=== PATIENT | male | born 1955 | race Caucasian/White ===

== ENCOUNTER 2018-09-30 06:39 | Day surgery (SDC) | payer OTHER ==
[2018-09-30] MEDS ORDERED: Propofol 200 MG/20 ML SDV IV ONE (06:40)
[2018-09-30] MEDS ORDERED: Lactated Ringers 1,000 ML IV SCH (06:45)
[2018-09-30] MEDS ORDERED: Sodium Chloride 0.9% 10 ML Syringe FLUSH PRN (06:45)
--- NOTE | 2018-09-30 08:22 | PCM.OPNOTE ---
- General Post-Op/Procedure Note Date of Surgery/Procedure: 09/30/18 Operative Procedure(s): c scope Findings: nl exam Pre Op Diagnosis: screening Post-Op Diagnosis: nl exam Anesthesia Technique: MAC Primary Surgeon: Bib Sommer Anesthesia Provider: Stanton Hernandez Complications: None Condition: Good Free Text/Narrative:: see dictation
--- NOTE | 2018-09-30 08:45 | OR ---
DATE OF OPERATION: 09/30/2018 SURGEON: Bib Sommer MD PROCEDURE PERFORMED: Colonoscopy. PREOPERATIVE DIAGNOSIS: Need for screening C-scope. POSTOPERATIVE DIAGNOSIS: Normal colon. INDICATIONS FOR PROCEDURE: This is a 63-year-old white male presenting for colonoscopy. He was offered and accepted same. DESCRIPTION OF OPERATION: After an excellent IV sedation was administered, digital rectal exam was performed. No marked abnormality was noted. Flexible colonoscope was inserted and advanced to the cecum without difficulty. Prep was excellent. Following findings were noted. Ascending colon, unremarkable. Transverse colon, unremarkable. Descending colon, unremarkable. Sigmoid and rectum, unremarkable. Colon was deflated. Scope was removed. The patient tolerated the procedure well. RECOMMENDATIONS: Repeat colonoscopy in 10 years. /[id number] /MODL
== END 2018-09-30 09:24 | disposition home or self-care (01) ==
LOC: FB.SDS 06:39
PROVIDERS: ATTEND Surgery
DX: Z12.11 Encounter for screening for malignant neoplasm of colon (principal); J45.909 Unspecified asthma, uncomplicated; Z79.899 Other long term (current) drug therapy; Z91.011 Allergy to milk products
CPT/HCPCS: 45378; J2704; J7120

== ENCOUNTER 2019-01-16 05:06 | Emergency (ER) | payer OTHER ==
[2019-01-16] MEDS ORDERED: traMADol 50 MG Tab PO ONE (05:07)
[2019-01-16] MEDS ORDERED: Cyclobenzaprine 10 MG Tab PO ONE (05:07)
[2019-01-16] MEDS ORDERED: Morphine 10 MG/ML Syringe IM ONE (05:18)
[2019-01-16] MEDS ORDERED: hydrOXYzine HCl 50 MG/ML SDV IM ONE (05:18)
--- NOTE | 2019-01-16 05:23 | EDM.PDOC ---
ED HPI GENERAL MEDICAL PROBLEM - General Stated Complaint: BACK PAIN Time Seen by Provider: 01/16/19 05:19 Source of Information: Reports: Patient History Limitations: Reports: No Limitations - History of Present Illness INITIAL COMMENTS - FREE TEXT/NARRATIVE: Back pain x 5 days,sudden onset.Lifted heavy object a week ago. Progressive pain ,left side,radiates to thigh.No fever,or sphincter incontinence.OTC meds not working. Left Lower Back Pain Score (Numeric/FACES): 9 - Related Data Allergies Allergy/AdvReac Type Severity Reaction Status Date / Time gluten Allergy Diarrhea Verified 09/29/18 11:37 lactose Allergy Nausea Verified 09/29/18 11:37 Home Meds: Home Meds Albuterol Sulfate [Albuterol Sulfate Hfa] 2 puff IH Q4HR PRN 09/29/18 [History] Budesonide/Formoterol [Symbicort 160-4.5 MCG] 2 puff INH BID 09/29/18 [History] Fexofenadine/Pseudoephedrine [Lorin-D 12 Hour] 1 each PO DAILY PRN 09/29/18 [ History] Fluticasone Propionate [Flonase] 2 spray NS DAILY 09/29/18 [History] Ibuprofen 600 mg PO QID 09/29/18 [History] Montelukast [Singulair] 10 mg PO BEDTIME 09/29/18 [History] Multivitamin [Multivitamins] 1 ea PO DAILY 09/30/18 [History] Past Medical History HEENT History: Reports: Allergic Rhinitis, Impaired Vision Cardiovascular History: Reports: None Other Cardiovascular History: STATES PALPITATIONS CHECKED PER HOLTER MONITOR, NEGATIVE YEARS AGO. Respiratory History: Reports: Asthma Gastrointestinal History: Reports: Other (See Below) Other Gastrointestinal History: GLUTEN ET LACTOSE INTOLERANCE. Genitourinary History: Other Genitourinary History: URNINARY FREQUENCY. 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 Neurological History: Reports: Other (See Below) Other Neuro History: LUMBAR DISC HERNIATION Psychiatric History: Reports: None Endocrine/Metabolic History: Reports: None Hematologic History: Reports: None Dermatologic History: Reports: Eczema - Infectious Disease History Infectious Disease History: Reports: Chicken Pox, Measles, Mumps - Past Surgical History Head Surgeries/Procedures: Reports: None HEENT Surgical History: Reports: Tonsillectomy GI Surgical History: Reports: Colonoscopy, EGD Musculoskeletal Surgical History: Reports: Arthroscopic Procedure, Other (See Below) Other Musculoskeletal Surgeries/Procedures:: BUNIONECTOMY-LEFT. BONE SPUR EXCISION BILAT ANKLE. SCRAPING OF LEFT HIP. Social & Family History - Family History GI: Reports: None - Caffeine Use Caffeine Use: Reports: Coffee ED ROS GENERAL - Review of Systems Review Of Systems: ROS reveals no pertinent complaints other than HPI. ED EXAM,LOWER BACK PAIN/INJURY - Physical Exam Exam: See Below Exam Limited By: No Limitations General Appearance: Alert, WD/WN, No Apparent Distress Head: Atraumatic Neck: Normal Inspection Back Exam: Normal Inspection, Decreased Range of Motion, Paraspinal Tenderness. No: Muscle Spasm Extremities: Normal Inspection, Normal Range of Motion, Non-Tender, No Pedal Edema Neurological: Alert, Normal Mood/Affect, Normal Dorsiflexion, Oriented x 3 Course - Vital Signs Last Recorded V/S: Last Vital Signs Temp 97.5 F 01/16/19 05:10 Pulse 77 01/16/19 05:10 Resp 18 01/16/19 05:10 BP 117/68 01/16/19 05:10 Pulse Ox 100 01/16/19 05:10 - Orders/Labs/Meds Orders: Active Orders 24 hr Category Date Time Status Morphine Med 01/16/19 05:18 Once 10 mg IM ONETIME ONE hydrOXYzine HCl [Vistaril] Med 01/16/19 05:18 Once 50 mg IM ONETIME ONE Departure - Departure Time of Disposition: 05:21 Disposition: Home, Self-Care 01 Condition: Good Clinical Impression: Acute lumbar back pain - Discharge Information Referrals: Bk Terry MD [Primary Care Provider] - - Problem List & Annotations (1) Acute lumbar back pain SNOMED Code(s): 262427851 Code(s): M54.5 - LOW BACK PAIN Status: Acute Qualifiers: Back pain laterality: left Sciatica presence: without sciatica Qualified Code(s): M54.5 - Low back pain - Problem List Review Problem List Initiated/Reviewed/Updated: Yes - My Orders Last 24 Hours: My Active Orders 01/16/19 05:18 Morphine 10 mg IM ONETIME ONE hydrOXYzine HCl [Vistaril] 50 mg IM ONETIME ONE - Assessment/Plan Last 24 Hours: My Active Orders 06/30/19 05:18 Morphine 10 mg IM ONETIME ONE hydrOXYzine HCl [Vistaril] 50 mg IM ONETIME ONE Plan: MS 10 mg IM,and Vistaril 50 mg IM. I dispnsed Chad and dee. PT may be helpful
[2019-01-16] MEDS ORDERED: Morphine 4 MG/ML Syringe ONE (05:29)
[2019-01-16] MEDS ORDERED: Morphine 4 MG/ML Syringe IM ONE (05:37)
== END 2019-01-16 05:45 | disposition home or self-care (01) ==
LOC: FB.ED 05:06
DX: M54.5 Low back pain (principal); J45.909 Unspecified asthma, uncomplicated; Z91.018 Allergy to other foods; Z91.011 Allergy to milk products; Z79.899 Other long term (current) drug therapy
CPT/HCPCS: 96372; 99282; A9270; J2270; J3410

== ENCOUNTER 2021-05-06 21:45 | Inpatient (IN) | payer OTHER ==
[2021-05-06] MEDS ORDERED: Sodium Chloride 0.9% 1,000 ML IV ONE ×2 (21:56→22:56)
--- NOTE | 2021-05-06 22:00 | EDM.PDOC ---
ED HPI GENERAL MEDICAL PROBLEM - General Chief Complaint: Fever Stated Complaint: COVID Time Seen by Provider: 05/06/21 21:45 Source of Information: Reports: Patient, Family History Limitations: Reports: No Limitations - History of Present Illness INITIAL COMMENTS - FREE TEXT/NARRATIVE: c/o sob pt and both tested positive for COVID pt had BAM infusion today in [place], poor PO intake, had PO 90% tonight with inc'd sob and told to come to ED PO at 94% on RA here, does have slight wheeze has asthma for years, take Symbicort daily, not had a flare of asthma in recent years, begun on prednisone 2 tabs daily when in [place] today for his BAM infusion which was arranged by Dr Cook who is now his 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[facility] [employer] never smoked, no h/o pneumonia has taken ibuprofen 200 mg 2 tabs on occasion although not on a regular basis and pt have not had COVID vax - Related Data Allergies Allergy/AdvReac Type Severity Reaction Status Date / Time gluten Allergy Diarrhea Verified 05/06/21 21:52 lactose Allergy Nausea Verified 05/06/21 21:52 Home Meds: Home Meds Albuterol Sulfate [Albuterol Sulfate Hfa] 2 puff IH Q4HR PRN 09/29/18 [History] Budesonide/Formoterol [Symbicort 160-4.5 MCG] 2 puff INH BID 09/29/18 [History] Fluticasone Propionate [Flonase] 2 spray NS DAILY 09/29/18 [History] Ibuprofen 600 mg PO QID 09/29/18 [History] Montelukast [Singulair] 10 mg PO BEDTIME 09/29/18 [History] Multivitamin [Multivitamins] 1 ea PO DAILY 09/30/18 [History] predniSONE [Prednisone] 40 mg PO ASDIRECTED 05/06/21 [History] Past Medical History HEENT History: Reports: Allergic Rhinitis, Impaired Vision Cardiovascular History: Reports: None Other Cardiovascular History: STATES PALPITATIONS CHECKED PER HOLTER MONITOR, NEGATIVE YEARS AGO. Respiratory History: Reports: Asthma Gastrointestinal History: Reports: Other (See Below) Other Gastrointestinal History: GLUTEN ET LACTOSE INTOLERANCE. Genitourinary History: Other Genitourinary History: URNINARY FREQUENCY. 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 Neurological History: Reports: Other (See Below) Other Neuro History: LUMBAR DISC HERNIATION Psychiatric History: Reports: None Endocrine/Metabolic History: Reports: None Hematologic History: Reports: None Dermatologic History: Reports: Eczema - Infectious Disease History Infectious Disease History: Reports: Chicken Pox, Measles, Mumps - Past Surgical History Head Surgeries/Procedures: Reports: None HEENT Surgical History: Reports: Tonsillectomy GI Surgical History: Reports: Colonoscopy, EGD Musculoskeletal Surgical History: Reports: Arthroscopic Procedure, Other (See Below) Other Musculoskeletal Surgeries/Procedures:: BUNIONECTOMY-LEFT. BONE SPUR EXCISION BILAT ANKLE. SCRAPING OF LEFT HIP. Social & Family History - Family History GI: Reports: None - Caffeine Use Caffeine Use: Reports: Coffee ED ROS GENERAL - Review of Systems Review Of Systems: See Below Constitutional: Reports: Fever HEENT: Reports: No Symptoms Respiratory: Reports: Shortness of Breath, Cough Cardiovascular: Reports: No Symptoms Endocrine: Reports: No Symptoms GI/Abdominal: Reports: No Symptoms : Reports: No Symptoms Musculoskeletal: Reports: No Symptoms Skin: Reports: No Symptoms Neurological: Reports: No Symptoms Psychiatric: Reports: No Symptoms Hematologic/Lymphatic: Reports: No Symptoms Immunologic: Reports: No Symptoms ED EXAM, GENERAL - Physical Exam Exam: See Below Exam Limited By: No Limitations General Appearance: Alert, WD/WN, Other (weak) Ears: Hearing Grossly Normal Nose: Normal Inspection Throat/Mouth: Normal Inspection, Normal Lips, Normal Voice, No Airway Compromise Head: Atraumatic, Normocephalic Neck: Normal Inspection, Supple, Non-Tender. No: Lymphadenopathy (R), Lymphadenopathy (L) Cardiovascular: Regular Rate, Rhythm, No Edema, No Murmur GI/Abdominal: Soft, Non-Tender, No Distention Back Exam: Normal Inspection, Full Range of Motion Extremities: Normal Range of Motion, No Pedal Edema Neurological: Alert, Oriented, CN II-XII Intact, Normal Cognition, No Motor/Sensory Deficits Psychiatric: Normal Affect, Normal Mood Skin Exam: Warm, Dry, Intact, Normal Color, No Rash Lymphatic: No Adenopathy Course - Vital Signs Last Recorded V/S: Last Vital Signs Temp 37.4 C 05/06/21 23:35 Pulse 97 05/06/21 21:45 Resp 24 H 05/06/21 21:45 BP 130/67 05/06/21 21:45 Pulse Ox 91 L 05/06/21 21:45 - Orders/Labs/Meds Orders: Active Orders 24 hr Category Date Time Status RT Aerosol Therapy [RC] ASDIRECTED Care 05/06/21 23:09 Ordered Ang Chest [CT] Stat Exams 05/06/21 22:57 Ordered Labs: Laboratory Tests 05/06/21 05/06/21 05/06/21 Range/Units 22:20 22:20 22:20 WBC 5.9 (3.2-10.1) x10-3/uL RBC 3.86 L (3.90-5.90) x10(6)uL Hgb 12.5 L (12.9-17.7) g/dL Hct 34.6 L (38.3-50.1) % MCV 89.6 (80.8-98.7) fL MCH 32.4 (27.0-33.3) pg MCHC 36.2 H (28.7-35.3) g/dL RDW 12.4 (12.4-15.0) % Plt Count 167 (117-477) x10(3)uL MPV 6.9 (6.7-11.0) fL Add Manual Diff Yes Neutrophils % (Manual) 96 H (46-82) % Band Neutrophils % 1 (0-6) % Lymphocytes % (Manual) 2 L (13-37) % Monocytes % (Manual) 1 L (4-12) % Sodium 119 L* (135-145) mmol/L Potassium 3.9 (3.5-5.3) mmol/L Chloride 87 L* (100-110) mmol/L Carbon Dioxide 22 (21-32) mmol/L BUN 14 (7-18) mg/dL Creatinine 0.9 (0.70-1.30) mg/dL Est Cr Clr Drug Dosing 87.78 mL/min Estimated GFR (MDRD) > 60 (>60) BUN/Creatinine Ratio 15.6 (9-20) Glucose 148 H (80-116) mg/dL Calcium 7.7 L (8.6-10.2) mg/dL Total Bilirubin 0.4 (0.1-1.3) mg/dL AST 58 H (5-25) IU/L ALT 33 (12-36) U/L Alkaline Phosphatase 60 (56-112) IU/L C-Reactive Protein 21.0 H* (0.5-0.9) mg/dL Total Protein 6.6 (6.0-8.0) g/dL Albumin 2.5 L (3.2-4.6) g/dL Globulin 4.1 g/dL Albumin/Globulin Ratio 0.6 Meds: Medications Discontinued Medications Generic Name Dose Route Start Last Admin Trade Name Socrates PRN Reason Stop Dose Admin Acetaminophen 1,000 mg 05/06/21 22:03 05/06/21 23:05 Acetaminophen 500 Mg Tab PO 05/06/21 22:04 1,000 mg ONETIME ONE Administration Albuterol/Ipratropium 3 ml 05/06/21 23:09 05/07/21 00:30 Albuterol/Ipratropium 3.0-0.5 Mg/3 Ml Neb Soln NEB 05/06/21 23:10 3 ml ONETIME ONE Administration Sodium Chloride 1,000 mls @ 999 mls/hr 05/06/21 21:56 05/06/21 23:05 Normal Saline IV 05/06/21 22:56 999 mls/hr .BOLUS ONE Administration Sodium Chloride 1,000 mls @ 999 mls/hr 05/06/21 22:56 05/07/21 00:40 Normal Saline IV 05/06/21 23:56 999 mls/hr .BOLUS ONE Administration Iopamidol 65 ml 05/06/21 23:47 05/07/21 00:12 Iopamidol 755 Mg/Ml 75 Ml Bottle IV 05/06/21 23:48 65 ml ONETIME ONE Administration Ketorolac Tromethamine 30 mg 05/06/21 22:02 05/06/21 23:05 Ketorolac 30 Mg/Ml Sdv IVPUSH 05/06/21 22:03 30 mg ONETIME ONE Administration - Re-Assessments/Exams Free Text/Narrative Re-Assessment/Exam: 05/07/21 01:34 chest CTA with no PE per radiology, does have moderately severe COVID pneumonia that is mostly posterior and inferior, may benefit from prone positioning when awake pt improved after Duoneb, did have minimal wheezing, however RR inc'd to 30 and pt had paradoximal abd respirations with PO dropping to 88% when he was on his 2nd liter of NS, his labored respirations are concerning d/t the work of breathing he does not have nebs at home and even nebs at home along with home O2 is likely insufficient there are no beds in [place] currently, including no COVID beds based on earlier attempts to transfer pts who are still wait lifted, there currently are 2 pts on extended ED stays here who could not be transferred to [place] or elsewhere there is an open COVID bed here, will admit pt here on O2, scheduled anti- inflammatories, scheduled nebs, monitor no lobar pneumonia identified on chest CTA, typical ground glass appearance pt currently asleep, said he was exhausted, (Ariadne) headed home and said she could be reached at her cell phone at [phone] Departure - Departure Time of Disposition: 01:39 Disposition: Admitted As Inpatient 66 Condition: Fair Clinical Impression: Pneumonia due to COVID-19 virus, Hypoxia, Hyponatremia, Tachypnea, Dyspnea, Asthma exacerbation, Hypoalbuminemia - Discharge Information *PRESCRIPTION DRUG MONITORING PROGRAM REVIEWED*: Not Applicable *COPY OF PRESCRIPTION DRUG MONITORING REPORT IN PATIENT NORM: Not Applicable Forms: ED Department Discharge Sepsis Event Note (ED) - Evaluation Sepsis Screening Result: No Definite Risk - Focused Exam Vital Signs: Vital Signs Temp Temp Pulse Resp BP Pulse Ox 05/06/21 23:35 37.4 C 05/06/21 23:05 38.9 C H 05/06/21 21:45 38.9 C H 97 24 H 130/67 91 L - My Orders Last 24 Hours: My Active Orders 05/06/21 22:57 Ang Chest [CT] Stat 05/06/21 23:09 RT Aerosol Therapy [RC] ASDIRECTED - Assessment/Plan Last 24 Hours: My Active Orders 05/06/21 22:57 Ang Chest [CT] Stat 05/06/21 23:09 RT Aerosol Therapy [RC] ASDIRECTED
[2021-05-06] MEDS ORDERED: Ketorolac 30 MG/ML SDV IVPUSH ONE (22:02)
[2021-05-06] MEDS ORDERED: Acetaminophen 500 MG Tab PO ONE (22:03)
[2021-05-06] MEDS ORDERED: Albuterol/Ipratropium 3.0-0.5 MG/3 ML Neb Soln NEB ONE (23:09)
[2021-05-06] MEDS ORDERED: Iopamidol 755 Mg/ML 75 ML Bottle IV ONE (23:47)
[2021-05-07] MEDS ORDERED: LORazepam 2 MG/ML SDV IV PRN (01:43)
[2021-05-07] MEDS ORDERED: Magnesium Hydroxide 400 MG/5 ML Susp 30 ML Cup PO PRN (01:43)
[2021-05-07] MEDS ORDERED: Ketorolac 30 MG/ML SDV IVPUSH SCH ×2 (01:45→05:00)
[2021-05-07] MEDS ORDERED: Enoxaparin 40 MG/0.4 ML Syringe SUBCUT SCH (01:45)
[2021-05-07] MEDS ORDERED: Albuterol 0.083% 2.5 MG/3 ML Neb Soln NEB SCH ×2 (01:45→05:00)
[2021-05-07] MEDS ORDERED: Albuterol/Ipratropium 3.0-0.5 MG/3 ML Neb Soln NEB ONE (01:55)
[2021-05-07] MEDS ORDERED: Sodium Chloride 0.45% with KCl 1,000 ML IV SCH (02:00)
[2021-05-07] MEDS ORDERED: methylPREDNISolone Sodium Succinate 125 MG/2 ML SDV IVPUSH SCH (02:00)
[2021-05-07] MEDS ORDERED: methylPREDNISolone Sodium Succinate 125 MG/2 ML SDV ONE (02:00)
[2021-05-07] MEDS ORDERED: methylPREDNISolone Sod Succ 125 MG in Sodium Chloride 0.9% 100 ML IV SCH (02:00)
[2021-05-07 03:05] LABS: BASE EXCESS VENOUS,POC -4 mmol/L (-2 - 3+); PCO2 VENOUS,POC 36 mmHg (41-51); PH VENOUS,POC 7.36 pH Units (7.32-7.43)
[2021-05-07] MEDS: Albuterol/Ipratropium 3.0-0.5 MG/3 ML Neb Soln INH SCH ×2 (04:58→08:26)
[2021-05-07] MEDS ORDERED: Acetaminophen 500 MG Tab PO SCH (08:00)
[2021-05-07] MEDS: Budesonide 0.5 MG/2 ML Neb Susp INH SCH ×2 (08:27→20:12)
[2021-05-07] MEDS: Dexamethasone 4 MG/ML SDV IVPUSH SCH (08:28)
[2021-05-07] MEDS: Acetaminophen 500 MG Tab PO SCH ×3 (08:34→20:11)
[2021-05-07] MEDS: Multivitamin Tab PO SCH (08:35)
[2021-05-07] MEDS ORDERED: Fluticasone Propionate Nasal Spray 16 GM Bottle NASBOTH SCH (09:00)
--- NOTE | 2021-05-07 12:33 | PCM.HP.2 ---
H&P History of Present Illness - General Date of Service: 05/07/21 Admit Problem/Dx: Admission Diagnosis/Problem Admission Diagnosis/Problem Pneumonia Source of Information: Patient, Provider History Limitations: Reports: No Limitations - History of Present Illness Initial Comments - Free Text/Narative: Liang presented to ER last night for increasing shortness of breath, he started running fevers on , went into clinic on Thursday, and tested positive for Covid, set up for monoclonal ab infusion yesterday in [place], also Dr Cook started him on Prednisone 40 mg daily. He has asthma, takes Symbicort and Singulair, Albuterol and MTV. His saturations were in low 90s yesterday during his infusion stated he felt fine during the infusion but then after he got home he felt worse and came to ER. In ER his WBC was 5.2, Hgb 12.5, Sodium was 119, CRP 21.0. He was saturating 94% on room air, admitted to Covid unit for monitoring and IVF to correct hyponatremia. Overnight he desaturated down into 80%, he was started on oxygen with nasal cannula was up to 6L, attempted high flow nasal cannula but could not maintain oxygen above 90%, changed to non- breather mask and now requiring 15L. His temp this morning was 101.9F. He declined Remdesivir treatment due to concern of side effects. - Related Data Allergies/Adverse Reactions: Allergies Allergy/AdvReac Type Severity Reaction Status Date / Time gluten Allergy Diarrhea Verified 05/06/21 21:52 lactose Allergy Nausea Verified 05/06/21 21:52 Home Medications: Home Meds Albuterol Sulfate [Albuterol Sulfate Hfa] 2 puff IH Q4HR PRN 09/29/18 [History] Budesonide/Formoterol [Symbicort 160-4.5 MCG] 2 puff INH BID 09/29/18 [History] Fluticasone Propionate [Flonase] 2 spray NS DAILY 09/29/18 [History] Ibuprofen 600 mg PO QID 09/29/18 [History] Montelukast [Singulair] 10 mg PO BEDTIME 09/29/18 [History] Multivitamin [Multivitamins] 1 ea PO DAILY 09/30/18 [History] predniSONE [Prednisone] 40 mg PO ASDIRECTED 05/06/21 [History] Past Medical History HEENT History: Reports: Allergic Rhinitis, Impaired Vision Cardiovascular History: Reports: None Other Cardiovascular History: STATES PALPITATIONS CHECKED PER HOLTER MONITOR, NEGATIVE YEARS AGO. Respiratory History: Reports: Asthma Gastrointestinal History: Reports: Other (See Below) Other Gastrointestinal History: GLUTEN ET LACTOSE INTOLERANCE. Genitourinary History: Other Genitourinary History: URNINARY FREQUENCY. WOOL CARDER History: Reports: None Musculoskeletal History: Reports: Back Pain, Chronic, Fracture Other Musculoskeletal History: hx bilat hand fx Neurological History: Reports: Other (See Below) Other Neuro History: LUMBAR DISC HERNIATION Psychiatric History: Reports: None Endocrine/Metabolic History: Reports: None Hematologic History: Reports: None Dermatologic History: Reports: Eczema - Infectious Disease History Infectious Disease History: Reports: Chicken Pox, Measles, Mumps, Novel Coronavirus, Shingles - Past Surgical History Head Surgeries/Procedures: Reports: None HEENT Surgical History: Reports: Tonsillectomy GI Surgical History: Reports: Colonoscopy, EGD Musculoskeletal Surgical History: Reports: Arthroscopic Procedure, Other (See Below) Other Musculoskeletal Surgeries/Procedures:: BUNIONECTOMY-LEFT. BONE SPUR EXCISION BILAT ANKLE. SCRAPING OF LEFT HIP. Social & Family History - Family History Family Medical History: No Pertinent Family History GI: Reports: None - Tobacco Use Tobacco Use Status *Q: Never Tobacco User - Caffeine Use Caffeine Use: Reports: Coffee - Alcohol Use Days Per Week of Alcohol Use: 7 Number of Drinks Per Day: 4 Total Drinks Per Week: 28 - Recreational Drug Use Recreational Drug Use: No H&P Review of Systems - Review of Systems: Review Of Systems: See Below General: Reports: Fever, Chills, Malaise, Weakness HEENT: Reports: No Symptoms Pulmonary: Reports: Shortness of Breath, Wheezing, Cough, Sputum Cardiovascular: Reports: Dyspnea on Exertion. Denies: Chest Pain, Edema Gastrointestinal: Reports: No Symptoms Genitourinary: Reports: No Symptoms Musculoskeletal: Reports: No Symptoms Skin: Reports: No Symptoms Exam - Exam Exam: See Below - Vital Signs Vital Signs: Last Vital Signs Temp 99.3 F 05/07/21 11:30 Pulse 124 H 05/07/21 11:30 Resp 32 H 05/07/21 11:30 BP 131/63 05/07/21 11:30 Pulse Ox 97 05/07/21 11:30 Weight: 170 lb 5 oz - Exam Quality Assessment: Supplemental Oxygen General: Alert, Oriented, Cooperative, Moderate Distress HEENT: PERRLA, EOMI, Hearing Intact Neck: Trachea Midline Lungs: Decreased Breath Sounds, Crackles (bibasilar, posterior), Rales (RLL/LLL). No: Normal Respiratory Effort (increased), Wheezing Cardiovascular: Tachycardia GI/Abdominal Exam: Normal Bowel Sounds, Soft, Non-Tender, No Distention (Male) Exam: Deferred Rectal (Males) Exam: Deferred Extremities: No Pedal Edema, Normal Capillary Refill Peripheral Pulses: 2+: Radial (L), Radial (R), Posterior Tibial (L), Posterior Tibial (R), Dorsalis Pedis (L), Dorsalis Pedis (R) Skin: Intact, Other (clammy, flushed) Neurological: Cranial Nerves Intact, Normal Speech, Normal Tone - Patient Data Lab Results Last 24 hrs: Laboratory Results - last 24 hr 05/06/21 05/06/21 05/06/21 Range/Units 22:20 22:20 22:20 WBC 5.9 (3.2-10.1) x10-3/uL RBC 3.86 L (3.90-5.90) x10(6)uL Hgb 12.5 L (12.9-17.7) g/dL Hct 34.6 L (38.3-50.1) % MCV 89.6 (80.8-98.7) fL MCH 32.4 (27.0-33.3) pg MCHC 36.2 H (28.7-35.3) g/dL RDW 12.4 (12.4-15.0) % Plt Count 167 (117-477) x10(3)uL MPV 6.9 (6.7-11.0) fL Add Manual Diff Yes Neutrophils % (Manual) 96 H (46-82) % Band Neutrophils % 1 (0-6) % Lymphocytes % (Manual) 2 L (13-37) % Monocytes % (Manual) 1 L (4-12) % POC VBG pH (7.32-7.43) pH Units POC VBG pCO2 (41-51) mmHg POC VBG HCO3 (22-29) mmol/L VBG Base Excess (-2 - 3+) mmol/L O2 Delivery Device Oxygen Flow Rate LPM Sodium 119 L* (135-145) mmol/L Potassium 3.9 (3.5-5.3) mmol/L Chloride 87 L* (100-110) mmol/L Carbon Dioxide 22 (21-32) mmol/L BUN 14 (7-18) mg/dL Creatinine 0.9 (0.70-1.30) mg/dL Est Cr Clr Drug Dosing 87.78 mL/min Estimated GFR (MDRD) > 60 (>60) BUN/Creatinine Ratio 15.6 (9-20) Glucose 148 H (80-116) mg/dL Calcium 7.7 L (8.6-10.2) mg/dL Total Bilirubin 0.4 (0.1-1.3) mg/dL AST 58 H (5-25) IU/L ALT 33 (12-36) U/L Alkaline Phosphatase 60 (56-112) IU/L C-Reactive Protein 21.0 H* (0.5-0.9) mg/dL Total Protein 6.6 (6.0-8.0) g/dL Albumin 2.5 L (3.2-4.6) g/dL Globulin 4.1 g/dL Albumin/Globulin Ratio 0.6 05/07/21 05/07/21 05/07/21 Range/Units 02:50 06:55 06:55 WBC 7.2 (3.2-10.1) x10-3/uL RBC 4.56 (3.90-5.90) x10(6)uL Hgb 14.9 (12.9-17.7) g/dL Hct 41.8 (38.3-50.1) % MCV 91.8 (80.8-98.7) fL MCH 32.6 (27.0-33.3) pg MCHC 35.6 H (28.7-35.3) g/dL RDW 12.2 L (12.4-15.0) % Plt Count 157 (117-477) x10(3)uL MPV 7.3 (6.7-11.0) fL Add Manual Diff Yes Neutrophils % (Manual) 89 H (46-82) % Band Neutrophils % 2 (0-6) % Lymphocytes % (Manual) 7 L (13-37) % Monocytes % (Manual) 2 L (4-12) % POC VBG pH 7.36 (7.32-7.43) pH Units POC VBG pCO2 36 L (41-51) mmHg POC VBG HCO3 21 L (22-29) mmol/L VBG Base Excess -4 L (-2 - 3+) mmol/L O2 Delivery Device Room air Oxygen Flow Rate 0 LPM Sodium 126 L (135-145) mmol/L Potassium 3.8 (3.5-5.3) mmol/L Chloride 92 L D (100-110) mmol/L Carbon Dioxide 18 L (21-32) mmol/L BUN 15 (7-18) mg/dL Creatinine 1.1 (0.70-1.30) mg/dL Est Cr Clr Drug Dosing 74.13 mL/min Estimated GFR (MDRD) > 60 (>60) BUN/Creatinine Ratio 13.6 (9-20) Glucose 163 H (80-116) mg/dL Calcium 7.6 L (8.6-10.2) mg/dL Total Bilirubin (0.1-1.3) mg/dL AST (5-25) IU/L ALT (12-36) U/L Alkaline Phosphatase (56-112) IU/L C-Reactive Protein (0.5-0.9) mg/dL Total Protein (6.0-8.0) g/dL Albumin (3.2-4.6) g/dL Globulin g/dL Albumin/Globulin Ratio 05/07/21 Range/Units 06:55 WBC (3.2-10.1) x10-3/uL RBC (3.90-5.90) x10(6)uL Hgb (12.9-17.7) g/dL Hct (38.3-50.1) % MCV (80.8-98.7) fL MCH (27.0-33.3) pg MCHC (28.7-35.3) g/dL RDW (12.4-15.0) % Plt Count (117-477) x10(3)uL MPV (6.7-11.0) fL Add Manual Diff Neutrophils % (Manual) (46-82) % Band Neutrophils % (0-6) % Lymphocytes % (Manual) (13-37) % Monocytes % (Manual) (4-12) % POC VBG pH (7.32-7.43) pH Units POC VBG pCO2 (41-51) mmHg POC VBG HCO3 (22-29) mmol/L VBG Base Excess (-2 - 3+) mmol/L O2 Delivery Device Oxygen Flow Rate LPM Sodium (135-145) mmol/L Potassium (3.5-5.3) mmol/L Chloride (100-110) mmol/L Carbon Dioxide (21-32) mmol/L BUN (7-18) mg/dL Creatinine (0.70-1.30) mg/dL Est Cr Clr Drug Dosing mL/min Estimated GFR (MDRD) (>60) BUN/Creatinine Ratio (9-20) Glucose (80-116) mg/dL Calcium (8.6-10.2) mg/dL Total Bilirubin (0.1-1.3) mg/dL AST (5-25) IU/L ALT (12-36) U/L Alkaline Phosphatase (56-112) IU/L C-Reactive Protein 18.7 H* (0.5-0.9) mg/dL Total Protein (6.0-8.0) g/dL Albumin (3.2-4.6) g/dL Globulin g/dL Albumin/Globulin Ratio Result Diagrams: 05/07/21 06:55 05/07/21 06:55 Jack Results Last 24 hrs: Microbiology 05/07/21 09:21 Influenza Type A Antigen Screen - Final Nasopharyngeal Swab NEGATIVE INFLUENZA A VIRUS AG REFERENCE RANGE: NEGATIVE Influenza Type B Antigen Screen - Final NEGATIVE INFLUENZA B VIRUS AG REFERENCE RANGE: NEGATIVE Sepsis Event Note - Evaluation Sepsis Screening Result: No Definite Risk - Focused Exam Vital Signs: Vital Signs Temp Temp Pulse Resp BP Pulse Ox Pulse Ox 05/07/21 11:30 99.3 F 124 H 32 H 131/63 97 05/07/21 09:04 99.8 F 05/07/21 08:34 100.8 F H 05/07/21 06:26 77 35 H 136/61 93 L 05/07/21 06:00 96.4 F L 75 32 H 128/63 93 L 05/07/21 05:30 73 35 H 114/64 93 L 05/07/21 05:15 80 05/07/21 05:00 97.1 F 72 35 H 116/66 93 L 05/07/21 04:30 97.2 F 73 35 H 124/62 93 L 05/07/21 04:00 75 35 H 115/58 L 92 L 05/07/21 03:30 75 35 H 117/60 91 L 85 L 05/07/21 03:00 89 L 05/07/21 02:40 97.6 F 24 H 118/60 93 L *Q Meaningful Use (ADM) - VTE Risk Assess *Q Each Risk Factor Represents 1 Point: None, Serious lung disease including pneumonia, Medical Patient Currently on Bedrest Total Score 1 Point Risk Factors: 2 Each Risk Factor Represents 2 Points: None, Age 60 - 74 Years Total Score 2 Point Risk Factors: 2 Each Risk Factor Represents 3 Points: None Total Score 3 Point Risk Factors: 0 Each Risk Factor Represents 5 Points: None Total Score 5 Point Risk Factors: 0 Venous Thromboembolism Risk Factor Score *Q: 4 - Problem List (1) Pneumonia due to COVID-19 virus SNOMED Code(s): 817850208150537578 ICD Code: U07.1 - COVID-19; J12.82 - PNEUMONIA DUE TO CORONAVIRUS DISEASE 2018 Status: Acute Current Visit: Yes (2) Hypoxia SNOMED Code(s): 110820527 ICD Code: R09.02 - HYPOXEMIA Status: Acute Current Visit: Yes (3) Tachypnea SNOMED Code(s): 571041681 ICD Code: R06.82 - TACHYPNEA, NOT ELSEWHERE CLASSIFIED Status: Acute Current Visit: Yes (4) Hyponatremia SNOMED Code(s): 41152907 ICD Code: E87.1 - HYPO-OSMOLALITY AND HYPONATREMIA Status: Acute Current Visit: Yes (5) Asthma SNOMED Code(s): 322615732 ICD Code: J45.909 - UNSPECIFIED ASTHMA, UNCOMPLICATED Status: Chronic Current Visit: Yes Problem List Initiated/Reviewed/Updated: Yes Orders Last 24hrs: Active Orders 24 hr Category Date Time Status Admission Status [Patient Status] [ADT] Routine ADT 05/07/21 01:29 Active Cardiac Monitoring [RC] QSHIFT Care 05/07/21 01:44 Active Oxygen Therapy [RC] PRN Care 05/07/21 01:44 Active Positioning, Patient [RC] QSHIFT Care 05/07/21 01:53 Active Pulse Oximetry [RC] CONTINUOUS Care 05/07/21 01:44 Active RT Aerosol Therapy [RC] ASDIRECTED Care 05/06/21 23:09 Active RT Aerosol Therapy [RC] ASDIRECTED Care 05/07/21 01:47 Active RT Aerosol Therapy [RC] ASDIRECTED Care 05/07/21 01:55 Active Up With Assistance [RC] ASDIRECTED Care 05/07/21 01:43 Active VTE/DVT Education [RC] Per Unit Routine Care 05/07/21 01:44 Active Vital Signs [RC] 08,12,16,20,00,04 Care 05/07/21 01:44 Active Regular Diet [DIET] Diet 05/07/21 Breakfast Active Ang Chest [CT] Stat Exams 05/06/21 22:57 Taken BASIC METABOLIC PANEL,BMP [CHEM] DAILY Lab 05/08/21 06:00 Ordered BASIC METABOLIC PANEL,BMP [CHEM] DAILY Lab 05/09/21 06:00 Ordered BASIC METABOLIC PANEL,BMP [CHEM] DAILY Lab 05/10/21 06:00 Ordered BASIC METABOLIC PANEL,BMP [CHEM] DAILY Lab 05/11/21 06:00 Ordered BASIC METABOLIC PANEL,BMP [CHEM] DAILY Lab 05/12/21 06:00 Ordered BASIC METABOLIC PANEL,BMP [CHEM] DAILY Lab 05/13/21 06:00 Ordered CBC WITH AUTO DIFF [HEME] DAILY Lab 05/08/21 06:00 Ordered CBC WITH AUTO DIFF [HEME] DAILY Lab 05/09/21 06:00 Ordered CBC WITH AUTO DIFF [HEME] DAILY Lab 05/10/21 06:00 Ordered CBC WITH AUTO DIFF [HEME] DAILY Lab 05/11/21 06:00 Ordered CBC WITH AUTO DIFF [HEME] DAILY Lab 05/12/21 06:00 Ordered CBC WITH AUTO DIFF [HEME] DAILY Lab 05/13/21 06:00 Ordered Acetaminophen [Tylenol Extra Strength] Med 05/07/21 08:00 Active 500 mg PO Q6H Albuterol/Ipratropium [DuoNeb 3.0-0.5 MG/3 ML] Med 05/07/21 01:45 Active 3 ml INH Q6H Budesonide [Pulmicort] Med 05/07/21 08:00 Active 0.5 mg INH BID@0800,2100 Cholecalciferol (Vitamin D3) [Vitamin D3] Med 05/07/21 14:00 Active 125 mcg PO DAILY@0800 Enoxaparin [Lovenox] Med 05/08/21 08:00 Active 40 mg SUBCUT Q24H Ketorolac [Toradol] Med 05/07/21 14:00 Active 30 mg IVPUSH Q6H LORazepam [Ativan] Med 05/07/21 01:43 Active 0.5 mg IV Q4H PRN Magnesium Hydroxide [Milk of Magnesia] Med 05/07/21 01:43 Active 30 ml PO Q12H PRN Montelukast [Singulair] Med 05/07/21 21:00 Active 10 mg PO BEDTIME Multivitamins [Tab-A-Windy] Med 05/07/21 08:00 Active 1 tab PO DAILY@0800 Sodium Chloride 0.45% with KCl [1/2 NS with 20 mEq KCl] Med 05/07/21 02:00 Active 1,000 ml IV ASDIRECTED Zinc Sulfate [Zincate] Med 05/07/21 14:00 Active 220 mg PO DAILY@0800 dexAMETHasone [Decadron] Med 05/07/21 08:00 Active 6 mg IVPUSH DAILY@0800 Isolation [COMM] Routine Oth 05/07/21 09:21 Ordered Resuscitation Status Routine Resus Stat 05/07/21 01:43 Ordered Medication Orders Acetaminophen (Acetaminophen 500 Mg Tab) 500 mg PO Q6H [facility] Last Admin: 05/07/21 08:34 Dose: 500 mg Documented by: ROHINI Albuterol/Ipratropium (Albuterol/Ipratropium 3.0-0.5 Mg/3 Ml Neb Soln) 3 ml INH Q6H [facility] Last Admin: 05/07/21 08:26 Dose: 3 ml Documented by: Admin: 05/07/21 04:58 Dose: Not Given Documented by: BEAN Budesonide (Budesonide 0.5 Mg/2 Ml Neb Susp) 0.5 mg INH BID@0800,2100 [facility] Last Admin: 05/07/21 08:27 Dose: 0.5 mg Documented by: ROHINI Cholecalciferol (Cholecalciferol (Vitamin D3) 25 Mcg Tab) 125 mcg PO DAILY@0800 [facility] Dexamethasone (Dexamethasone 4 Mg/Ml Sdv) 6 mg IVPUSH DAILY@0800 [facility] Last Admin: 05/07/21 08:28 Dose: 6 mg Documented by: ROHINI Enoxaparin Sodium (Enoxaparin 40 Mg/0.4 Ml Syringe) 40 mg SUBCUT Q24H [facility] Potassium Chloride/Sodium Chloride (1/2 Ns With 20 Meq Kcl) 1,000 mls @ 50 mls/hr IV ASDIRECTED [facility] Last Admin: 05/07/21 03:07 Dose: 50 mls/hr Documented by: BEAN Ketorolac Tromethamine (Ketorolac 30 Mg/Ml Sdv) 30 mg IVPUSH Q6H [facility] Lorazepam (Lorazepam 2 Mg/Ml Sdv) 0.5 mg IV Q4H PRN PRN Reason: Nausea/Vomiting Magnesium Hydroxide (Magnesium Hydroxide 400 Mg/5 Ml Susp 30 Ml Cup) 30 ml PO Q12H PRN PRN Reason: Constipation Montelukast Sodium (Montelukast 10 Mg Tab) 10 mg PO BEDTIME [facility] Multivitamins/Minerals/Vitamin C (Multivitamin Tab) 1 tab PO DAILY@0800 [facility] Last Admin: 05/07/21 08:35 Dose: 1 tab Documented by: ROHINI Zinc Sulfate (Zinc Sulfate 220 Mg Cap) 220 mg PO DAILY@0800 [facility] Assessment/Plan Comment:: 1. Admit for inpatient treatment of Covid pneumonia, hypoxia, tachypnea. 2. Covid pneumonia: influenza negative. Declined Remdesivir due to side effects. started Dexamethasone 6 mg IV daily. Budesonide 0.5 mg neb bid, DuoNebs q6h initially ordered but caused tachycardia so switched to Xopenex q6h as needed. Oxygen by non-breather. CRP 18.7, improved from admission, does not meet criteria for Tocilizumab(crp>75, but does have rapid change in condition, requiring noninvasive oxygen). Isolation. Tylenol 500 mg po q6h and Toradol 30 mg IV q6h, alternate to keep fever down. EKG ordered on telemetry showed irregular rhythm. Monoclonal Ab takes 24-48 hours to take effect per pharmacy. 3. Asthma: Budesonide nebs bid and Xopenex q6h as needed substitute for Symbicort. Montelukast 10 mg bedtime. 4. Diet: Regular. 5. Activity: bedrest. 6. DVT prophylaxis: Lovenox 40 mg SQ daily. 7. CODE STATUS: FULL. 8. Discharge planning: critical next 24 hours, he may need transfer to [place] if they have availability, adjust treatments as necessary. - Mortality Measure Prognosis:: Good
[2021-05-07] MEDS ORDERED: Levalbuterol HCl 1.25 MG/3 ML Neb INH SCH (13:00)
[2021-05-07] MEDS: Cholecalciferol (Vitamin D3) 25 MCG Tab PO SCH (13:14)
[2021-05-07] MEDS: Ketorolac 30 MG/ML SDV IVPUSH SCH ×2 (13:16→20:10)
[2021-05-07] MEDS: Zinc Sulfate 220 MG Cap PO SCH (13:17)
[2021-05-07] MEDS: Levalbuterol HCl 1.25 MG/3 ML Neb INH PRN ×2 (15:49→21:49)
[2021-05-07] MEDS ORDERED: Sodium Chloride 0.9% 1,000 ML IV SCH (16:15)
--- NOTE | 2021-05-07 17:49 | PCM.EKG ---
#1 Interpretation EKG Date: 05/07/21 Time: 14:26 Rhythm: Other (Sinus tachycardia) Rate (Beats/Min): 101 [place]: Normal P-Wave: Present QRS: Normal ST-T: Normal QT: Normal EKG Interpretation Comments: Sinus tachycardia, no ischemic changes.
[2021-05-07] MEDS: Montelukast 10 MG Tab PO SCH (20:12)
[2021-05-08] MEDS: Acetaminophen 500 MG Tab PO SCH ×5 (02:00→21:14)
[2021-05-08] MEDS: Ketorolac 30 MG/ML SDV IVPUSH SCH (02:00)
[2021-05-08] MEDS: Levalbuterol HCl 1.25 MG/3 ML Neb INH PRN ×2 (04:49→18:51)
[2021-05-08] MEDS: Enoxaparin 40 MG/0.4 ML Syringe SUBCUT SCH (09:01)
[2021-05-08] MEDS: Dexamethasone 4 MG/ML SDV IVPUSH SCH (09:02)
[2021-05-08] MEDS: Budesonide 0.5 MG/2 ML Neb Susp INH SCH ×2 (09:04→20:51)
[2021-05-08] MEDS: Zinc Sulfate 220 MG Cap PO SCH (09:05)
[2021-05-08] MEDS: Multivitamin Tab PO SCH (09:05)
[2021-05-08] MEDS: Cholecalciferol (Vitamin D3) 25 MCG Tab PO SCH (09:05)
--- NOTE | 2021-05-08 12:11 | PCM.PN ---
- General Info Date of Service: 05/08/21 Subjective Update: He is feeling better, more of appetite today. Weaned down to 2L by nc and maintaining saturation of 94%. No loss of taste but states loss of hearing. States mix of constipation and diarrhea since he got sick on . - Patient Data Vitals - Most Recent: Last Vital Signs Temp 97.6 F 05/08/21 04:00 Pulse 86 05/08/21 04:59 Resp 20 05/08/21 04:00 BP 112/46 L 05/08/21 04:00 Pulse Ox 96 05/08/21 04:00 Weight - Most Recent: 171 lb 4 oz I&O - Last 24 Hours: Intake & Output 05/07/21 05/08/21 05/08/21 22:59 06:59 14:59 Intake Total 696 804 Balance 696 804 Lab Results Last 24 Hours: Laboratory Results - last 24 hr 05/08/21 05/08/21 Range/Units 06:25 06:25 WBC 13.8 H (3.2-10.1) x10-3/uL RBC 3.85 L (3.90-5.90) x10(6)uL Hgb 12.4 L (12.9-17.7) g/dL Hct 35.1 L (38.3-50.1) % MCV 91.2 (80.8-98.7) fL MCH 32.1 (27.0-33.3) pg MCHC 35.2 (28.7-35.3) g/dL RDW 12.4 (12.4-15.0) % Plt Count 204 (117-477) x10(3)uL MPV 7.0 (6.7-11.0) fL Add Manual Diff Yes Neutrophils % (Manual) 89 H (46-82) % Band Neutrophils % 5 (0-6) % Lymphocytes % (Manual) 3 L (13-37) % Monocytes % (Manual) 2 L (4-12) % Metamyelocytes % 1 H (0-0) % Sodium 126 L (135-145) mmol/L Potassium 3.4 L (3.5-5.3) mmol/L Chloride 92 L (100-110) mmol/L Carbon Dioxide 23 (21-32) mmol/L BUN 16 (7-18) mg/dL Creatinine 1.1 (0.70-1.30) mg/dL Est Cr Clr Drug Dosing 74.54 mL/min Estimated GFR (MDRD) > 60 (>60) BUN/Creatinine Ratio 14.5 (9-20) Glucose 168 H (80-116) mg/dL Calcium 7.6 L (8.6-10.2) mg/dL Jack Results Last 24 Hours: Microbiology 05/07/21 09:21 Influenza Type A Antigen Screen - Final Nasopharyngeal Swab NEGATIVE INFLUENZA A VIRUS AG REFERENCE RANGE: NEGATIVE Influenza Type B Antigen Screen - Final NEGATIVE INFLUENZA B VIRUS AG REFERENCE RANGE: NEGATIVE Med Orders - Current: Current Medications Acetaminophen (Acetaminophen 500 Mg Tab) 500 mg PO Q6H [facility] Last Admin: 05/08/21 10:26 Dose: 500 mg Documented by: Budesonide (Budesonide 0.5 Mg/2 Ml Neb Susp) 0.5 mg INH BID@0800,2100 [facility] Last Admin: 05/08/21 09:04 Dose: 0.5 mg Documented by: Cholecalciferol (Cholecalciferol (Vitamin D3) 25 Mcg Tab) 125 mcg PO DAILY@0800 [facility] Last Admin: 05/08/21 09:05 Dose: 125 mcg Documented by: Dexamethasone (Dexamethasone 4 Mg/Ml Sdv) 6 mg IVPUSH DAILY@0800 [facility] Last Admin: 05/08/21 09:02 Dose: 6 mg Documented by: Enoxaparin Sodium (Enoxaparin 40 Mg/0.4 Ml Syringe) 40 mg SUBCUT Q24H [facility] Last Admin: 05/08/21 09:01 Dose: 40 mg Documented by: Sodium Chloride (Normal Saline) 1,000 mls @ 50 mls/hr IV ASDIRECTED [facility] Last Admin: 05/07/21 16:19 Dose: 50 mls/hr Documented by: Ketorolac Tromethamine (Ketorolac 30 Mg/Ml Sdv) 30 mg IVPUSH Q6H PRN PRN Reason: pain/fever Levalbuterol HCl (Levalbuterol Hcl 1.25 Mg/3 Ml Neb) 1.25 mg INH Q6H PRN PRN Reason: Shortness of Breath Last Admin: 05/08/21 04:49 Dose: 1.25 mg Documented by: Lorazepam (Lorazepam 2 Mg/Ml Sdv) 0.5 mg IV Q4H PRN PRN Reason: Nausea/Vomiting Magnesium Hydroxide (Magnesium Hydroxide 400 Mg/5 Ml Susp 30 Ml Cup) 30 ml PO Q12H PRN PRN Reason: Constipation Montelukast Sodium (Montelukast 10 Mg Tab) 10 mg PO BEDTIME [facility] Last Admin: 05/07/21 20:12 Dose: 10 mg Documented by: Multivitamins/Minerals/Vitamin C (Multivitamin Tab) 1 tab PO DAILY@0800 [facility] Last Admin: 05/08/21 09:05 Dose: 1 tab Documented by: Zinc Sulfate (Zinc Sulfate 220 Mg Cap) 220 mg PO DAILY@0800 [facility] Last Admin: 05/08/21 09:05 Dose: 220 mg Documented by: Discontinued Medications Acetaminophen (Acetaminophen 500 Mg Tab) 1,000 mg PO ONETIME ONE Stop: 05/06/21 22:04 Last Admin: 05/06/21 23:05 Dose: 1,000 mg Documented by: Acetaminophen (Acetaminophen 500 Mg Tab) 1,000 mg PO Q6H [facility] Albuterol (Albuterol 0.083% 2.5 Mg/3 Ml Neb Soln) 2.5 mg NEB Q6H [facility] Last Admin: 05/07/21 03:31 Dose: Not Given Documented by: Albuterol (Albuterol 0.083% 2.5 Mg/3 Ml Neb Soln) 2.5 mg NEB Q6H [facility] Last Admin: 05/07/21 05:09 Dose: 2.5 mg Documented by: Albuterol/Ipratropium (Albuterol/Ipratropium 3.0-0.5 Mg/3 Ml Neb Soln) 3 ml NEB ONETIME ONE Stop: 05/06/21 23:10 Last Admin: 05/07/21 00:30 Dose: 3 ml Documented by: Albuterol/Ipratropium (Albuterol/Ipratropium 3.0-0.5 Mg/3 Ml Neb Soln) 3 ml INH Q6H [facility] Last Admin: 05/07/21 08:26 Dose: 3 ml Documented by: Albuterol/Ipratropium (Albuterol/Ipratropium 3.0-0.5 Mg/3 Ml Neb Soln) 3 ml NEB ONETIME ONE Stop: 05/07/21 01:56 Last Admin: 05/07/21 02:05 Dose: 3 ml Documented by: Enoxaparin Sodium (Enoxaparin 40 Mg/0.4 Ml Syringe) 40 mg SUBCUT Q24H [facility] Last Admin: 05/07/21 03:22 Dose: 40 mg Documented by: Sodium Chloride (Normal Saline) 1,000 mls @ 999 mls/hr IV .BOLUS ONE Stop: 05/06/21 22:56 Last Admin: 05/06/21 23:05 Dose: 999 mls/hr Documented by: Sodium Chloride (Normal Saline) 1,000 mls @ 999 mls/hr IV .BOLUS ONE Stop: 05/06/21 23:56 Last Admin: 05/07/21 00:40 Dose: 999 mls/hr Documented by: Methylprednisolone Sodium Succinate 125 mg/ Sodium Chloride 102 mls @ 102 mls/hr IV Q6H [facility] Last Admin: 05/07/21 03:21 Dose: Not Given Documented by: Potassium Chloride/Sodium Chloride (1/2 Ns With 20 Meq Kcl) 1,000 mls @ 50 mls/hr IV ASDIRECTED [facility] Last Admin: 05/07/21 03:07 Dose: 50 mls/hr Documented by: Iopamidol (Iopamidol 755 Mg/Ml 75 Ml Bottle) 65 ml IV ONETIME ONE Stop: 05/06/21 23:48 Last Admin: 05/07/21 00:12 Dose: 65 ml Documented by: Ketorolac Tromethamine (Ketorolac 30 Mg/Ml Sdv) 30 mg IVPUSH ONETIME ONE Stop: 05/06/21 22:03 Last Admin: 05/06/21 23:05 Dose: 30 mg Documented by: Ketorolac Tromethamine (Ketorolac 30 Mg/Ml Sdv) 30 mg IVPUSH Q6H [facility] Last Admin: 05/07/21 03:31 Dose: Not Given Documented by: Ketorolac Tromethamine (Ketorolac 30 Mg/Ml Sdv) 30 mg IVPUSH Q6H [facility] Last Admin: 05/07/21 05:08 Dose: 30 mg Documented by: Ketorolac Tromethamine (Ketorolac 30 Mg/Ml Sdv) 30 mg IVPUSH Q6H [facility] Last Admin: 05/08/21 02:00 Dose: 30 mg Documented by: Levalbuterol HCl (Levalbuterol Hcl 1.25 Mg/3 Ml Neb) 1.25 mg INH Q6H [facility] Methylprednisolone Sodium Succinate (Methylprednisolone Sodium Succinate 125 Mg/2 Ml Sdv) Confirm Administered Dose 125 mg .ROUTE .[facility]-MED ONE Stop: 05/07/21 02:01 Last Admin: 05/07/21 03:30 Dose: Not Given Documented by: Methylprednisolone Sodium Succinate (Methylprednisolone Sodium Succinate 125 Mg/2 Ml Sdv) 125 mg IVPUSH Q6H [facility] Last Admin: 05/07/21 02:05 Dose: 125 mg Documented by: - Exam Quality Assessment: Supplemental Oxygen General: Alert, Oriented, Cooperative, No Acute Distress Lungs: Clear to Auscultation, Normal Respiratory Effort, Decreased Breath Sounds (BLL), Crackles (BLL posterior lobes, improved air entry.). No: Wheezing Cardiovascular: Regular Rate, Regular Rhythm GI/Abdominal Exam: Soft, Non-Tender, No Distention, Abnormal Bowel Sounds (hyperactive BS x 4) Extremities: No Pedal Edema - Patient Data Lab Results Last 24 hrs: Laboratory Results - last 24 hr 05/08/21 05/08/21 Range/Units 06:25 06:25 WBC 13.8 H (3.2-10.1) x10-3/uL RBC 3.85 L (3.90-5.90) x10(6)uL Hgb 12.4 L (12.9-17.7) g/dL Hct 35.1 L (38.3-50.1) % MCV 91.2 (80.8-98.7) fL MCH 32.1 (27.0-33.3) pg MCHC 35.2 (28.7-35.3) g/dL RDW 12.4 (12.4-15.0) % Plt Count 204 (117-477) x10(3)uL MPV 7.0 (6.7-11.0) fL Add Manual Diff Yes Neutrophils % (Manual) 89 H (46-82) % Band Neutrophils % 5 (0-6) % Lymphocytes % (Manual) 3 L (13-37) % Monocytes % (Manual) 2 L (4-12) % Metamyelocytes % 1 H (0-0) % Sodium 126 L (135-145) mmol/L Potassium 3.4 L (3.5-5.3) mmol/L Chloride 92 L (100-110) mmol/L Carbon Dioxide 23 (21-32) mmol/L BUN 16 (7-18) mg/dL Creatinine 1.1 (0.70-1.30) mg/dL Est Cr Clr Drug Dosing 74.54 mL/min Estimated GFR (MDRD) > 60 (>60) BUN/Creatinine Ratio 14.5 (9-20) Glucose 168 H (80-116) mg/dL Calcium 7.6 L (8.6-10.2) mg/dL Result Diagrams: 05/08/21 06:25 05/08/21 06:25 Jack Results Last 24 hrs: Microbiology 05/07/21 09:21 Influenza Type A Antigen Screen - Final Nasopharyngeal Swab NEGATIVE INFLUENZA A VIRUS AG REFERENCE RANGE: NEGATIVE Influenza Type B Antigen Screen - Final NEGATIVE INFLUENZA B VIRUS AG REFERENCE RANGE: NEGATIVE Sepsis Event Note - Evaluation Sepsis Screening Result: Sepsis Risk - Focused Exam Vital Signs: Vital Signs Temp Temp Pulse Resp BP Pulse Ox 05/08/21 04:59 86 05/08/21 04:00 97.6 F 86 20 112/46 L 96 05/08/21 02:00 97.6 F 96 - Problem List & Annotations (1) Pneumonia due to COVID-19 virus SNOMED Code(s): 794049654939633946 Code(s): U07.1 - COVID-19; J12.82 - PNEUMONIA DUE TO CORONAVIRUS DISEASE 2019 Status: Acute Current Visit: Yes (2) Hypoxia SNOMED Code(s): 579049381 Code(s): R09.02 - HYPOXEMIA Status: Acute Current Visit: Yes Annotation/Comment:: improving, weaned down to 2L (3) Tachypnea SNOMED Code(s): 635133177 Code(s): R06.82 - TACHYPNEA, NOT ELSEWHERE CLASSIFIED Status: Acute Current Visit: Yes (4) Hyponatremia SNOMED Code(s): 76456666 Code(s): E87.1 - HYPO-OSMOLALITY AND HYPONATREMIA Status: Acute Current Visit: Yes Annotation/Comment:: stable at 126. (5) Asthma SNOMED Code(s): 079156005 Code(s): J45.909 - UNSPECIFIED ASTHMA, UNCOMPLICATED Status: Chronic Current Visit: Yes - Problem List Review Problem List Initiated/Reviewed/Updated: Yes - My Orders Last 24 Hours: My Active Orders 05/07/21 12:32 EKG 12 Lead [EK] Stat 05/07/21 13:00 levalbuterol HCL [Xopenex] 1.25 mg INH Q6H PRN 05/07/21 14:00 Cholecalciferol (Vitamin D3) [Vitamin D3] 125 mcg PO DAILY@0800 Zinc Sulfate [Zincate] 220 mg PO DAILY@0800 05/07/21 15:08 Communication Order [RC] Q1HWA 05/07/21 16:15 Sodium Chloride 0.9% [Normal Saline] 1,000 ml IV ASDIRECTED 05/08/21 09:01 Ketorolac [Toradol] 30 mg IVPUSH Q6H PRN 05/08/21 11:06 Activity as Tolerated [RC] .Routine 05/09/21 06:00 CBC WITH AUTO DIFF [HEME] Routine - Plan Plan:: 1. Covid pneumonia: Dexamethasone 6 mg IV daily, day 2. Budesonide 0.5 mg neb bid, Xopenex q6h as needed. Oxygen by NC. CRP 18.7, improved from admission, does not meet criteria for Tocilizumab(crp>75, but does have rapid change in condition, requiring noninvasive oxygen). Isolation. Tylenol 500 mg po q6h and Toradol 30 mg IV q6h as needed, alternate to keep fever down. EKG ordered on telemetry showed irregular rhythm, EKG showed sinus tachycardia. Telemetry discontinued yesterday. Continuous pulse ox discontinued. 2. Asthma: Budesonide nebs bid and Xopenex q6h as needed substitute for Symbicort. Montelukast 10 mg bedtime. 3. 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 Recheck BMP tomorrow. 4. Discharge planning: continue to wean off oxygen, discharge home once on room air and maintaining his saturations. adjust treatments as necessary.
[2021-05-08] MEDS: Montelukast 10 MG Tab PO SCH (20:51)
[2021-05-09] MEDS: Ketorolac 30 MG/ML SDV IVPUSH SCH (00:21)
[2021-05-09] MEDS: Levalbuterol HCl 1.25 MG/3 ML Neb INH PRN ×3 (01:38→20:55)
[2021-05-09] MEDS: Ketorolac 30 MG/ML SDV IVPUSH PRN ×2 (02:12→08:47)
[2021-05-09] MEDS: Acetaminophen 500 MG Tab PO SCH ×2 (02:21→19:44)
[2021-05-09] MEDS ORDERED: LORazepam 0.5 MG Tab PO PRN (08:00)
[2021-05-09] MEDS ORDERED: Acetaminophen 500 MG Tab PO PRN (08:01)
[2021-05-09] MEDS: Cholecalciferol (Vitamin D3) 25 MCG Tab PO SCH (08:42)
[2021-05-09] MEDS: Enoxaparin 40 MG/0.4 ML Syringe SUBCUT SCH (08:43)
[2021-05-09] MEDS: Dexamethasone 4 MG/ML SDV IVPUSH SCH (08:44)
[2021-05-09] MEDS: Zinc Sulfate 220 MG Cap PO SCH (08:45)
[2021-05-09] MEDS: Multivitamin Tab PO SCH (08:45)
[2021-05-09] MEDS: Budesonide 0.5 MG/2 ML Neb Susp INH SCH ×2 (08:46→20:54)
[2021-05-09] MEDS: Doxycycline 100 MG in Sodium Chloride 0.9% 100 ML IV SCH ×2 (08:47→20:51)
--- NOTE | 2021-05-09 10:38 | PCM.PN ---
- General Info Date of Service: 05/09/21 Subjective Update: He is breathing better today, saturating 95% on 1L. States he has gotten alot of sputum up. Would like some cough medicine as he was up most of night coughing. W ould like to shower & shave today. Has been walking around the room. Drinking Gatorade, urinating well. States usually he doesn't take his Symbicort unless he's sick, he hasn't had exacerbation of his asthma for a while. Had normal BM today. - Patient Data Vitals - Most Recent: Last Vital Signs Temp 96.1 F L 05/09/21 08:00 Pulse 89 05/09/21 08:00 Resp 18 05/09/21 08:00 BP 126/60 05/09/21 08:00 Pulse Ox 91 L 05/09/21 08:00 Weight - Most Recent: 171 lb 4 oz I&O - Last 24 Hours: Intake & Output 05/08/21 05/09/21 05/09/21 22:59 06:59 14:59 Intake Total 778 628 Balance 778 628 Lab Results Last 24 Hours: Laboratory Results - last 24 hr 05/09/21 05/09/21 Range/Units 06:30 06:30 WBC 14.3 H (3.2-10.1) x10-3/uL RBC 3.53 L (3.90-5.90) x10(6)uL Hgb 11.3 L (12.9-17.7) g/dL Hct 32.2 L (38.3-50.1) % MCV 91.0 (80.8-98.7) fL MCH 32.0 (27.0-33.3) pg MCHC 35.1 (28.7-35.3) g/dL RDW 12.7 (12.4-15.0) % Plt Count 247 (117-477) x10(3)uL MPV 6.9 (6.7-11.0) fL Add Manual Diff Yes Neutrophils % (Manual) 94 H (46-82) % Band Neutrophils % 1 (0-6) % Lymphocytes % (Manual) 2 L (13-37) % Monocytes % (Manual) 3 L (4-12) % Sodium 129 L (135-145) mmol/L Potassium 3.8 (3.5-5.3) mmol/L Chloride 98 L D (100-110) mmol/L Carbon Dioxide 23 (21-32) mmol/L BUN 15 (7-18) mg/dL Creatinine 0.9 (0.70-1.30) mg/dL Est Cr Clr Drug Dosing 91.10 mL/min Estimated GFR (MDRD) > 60 (>60) BUN/Creatinine Ratio 16.7 (9-20) Glucose 128 H (80-116) mg/dL Calcium 7.7 L (8.6-10.2) mg/dL Med Orders - Current: Current Medications Acetaminophen (Acetaminophen 500 Mg Tab) 500 mg PO Q6H PRN PRN Reason: Pain/Fever Budesonide (Budesonide 0.5 Mg/2 Ml Neb Susp) 0.5 mg INH BID@0800,2100 [facility] Last Admin: 05/09/21 08:46 Dose: 0.5 mg Documented by: Cholecalciferol (Cholecalciferol (Vitamin D3) 25 Mcg Tab) 125 mcg PO DAILY@0800 [facility] Last Admin: 05/09/21 08:42 Dose: 125 mcg Documented by: Dexamethasone (Dexamethasone 4 Mg/Ml Sdv) 6 mg IVPUSH DAILY@0800 [facility] Last Admin: 05/09/21 08:44 Dose: 6 mg Documented by: Enoxaparin Sodium (Enoxaparin 40 Mg/0.4 Ml Syringe) 40 mg SUBCUT Q24H [facility] Last Admin: 05/09/21 08:43 Dose: 40 mg Documented by: Guaifenesin/Phenylephrine HCl (Guaifenesin/Dextromethorphan 100-10 Mg/5 Ml Soln 5 Ml Cup) 10 ml PO Q4H PRN PRN Reason: Cough Doxycycline Hyclate 100 mg/ (Sodium Chloride) 100 mls @ 100 mls/hr IV Q12H [facility] Last Admin: 05/09/21 08:47 Dose: 100 mls/hr Documented by: Ketorolac Tromethamine (Ketorolac 30 Mg/Ml Sdv) 30 mg IVPUSH Q6H PRN PRN Reason: pain/fever Last Admin: 05/09/21 08:47 Dose: 30 mg Documented by: Levalbuterol HCl (Levalbuterol Hcl 1.25 Mg/3 Ml Neb) 1.25 mg INH Q6H PRN PRN Reason: Shortness of Breath Last Admin: 05/09/21 01:38 Dose: 1.25 mg Documented by: Lorazepam (Lorazepam 0.5 Mg Tab) 0.5 mg PO Q4H PRN PRN Reason: Anxiety Magnesium Hydroxide (Magnesium Hydroxide 400 Mg/5 Ml Susp 30 Ml Cup) 30 ml PO Q12H PRN PRN Reason: Constipation Montelukast Sodium (Montelukast 10 Mg Tab) 10 mg PO BEDTIME [facility] Last Admin: 05/08/21 20:51 Dose: 10 mg Documented by: Multivitamins/Minerals/Vitamin C (Multivitamin Tab) 1 tab PO DAILY@0800 [facility] Last Admin: 05/09/21 08:45 Dose: 1 tab Documented by: Zinc Sulfate (Zinc Sulfate 220 Mg Cap) 220 mg PO DAILY@0800 [facility] Last Admin: 05/09/21 08:45 Dose: 220 mg Documented by: Discontinued Medications Acetaminophen (Acetaminophen 500 Mg Tab) 1,000 mg PO ONETIME ONE Stop: 05/06/21 22:04 Last Admin: 05/06/21 23:05 Dose: 1,000 mg Documented by: Acetaminophen (Acetaminophen 500 Mg Tab) 1,000 mg PO Q6H [facility] Acetaminophen (Acetaminophen 500 Mg Tab) 500 mg PO Q6H [facility] Last Admin: 05/09/21 02:21 Dose: Not Given Documented by: Albuterol (Albuterol 0.083% 2.5 Mg/3 Ml Neb Soln) 2.5 mg NEB Q6H [facility] Last Admin: 05/07/21 03:31 Dose: Not Given Documented by: Albuterol (Albuterol 0.083% 2.5 Mg/3 Ml Neb Soln) 2.5 mg NEB Q6H [facility] Last Admin: 05/07/21 05:09 Dose: 2.5 mg Documented by: Albuterol/Ipratropium (Albuterol/Ipratropium 3.0-0.5 Mg/3 Ml Neb Soln) 3 ml NEB ONETIME ONE Stop: 05/06/21 23:10 Last Admin: 05/07/21 00:30 Dose: 3 ml Documented by: Albuterol/Ipratropium (Albuterol/Ipratropium 3.0-0.5 Mg/3 Ml Neb Soln) 3 ml INH Q6H [facility] Last Admin: 05/07/21 08:26 Dose: 3 ml Documented by: Albuterol/Ipratropium (Albuterol/Ipratropium 3.0-0.5 Mg/3 Ml Neb Soln) 3 ml NEB ONETIME ONE Stop: 05/07/21 01:56 Last Admin: 05/07/21 02:05 Dose: 3 ml Documented by: Enoxaparin Sodium (Enoxaparin 40 Mg/0.4 Ml Syringe) 40 mg SUBCUT Q24H [facility] Last Admin: 05/07/21 03:22 Dose: 40 mg Documented by: Sodium Chloride (Normal Saline) 1,000 mls @ 999 mls/hr IV .BOLUS ONE Stop: 05/06/21 22:56 Last Admin: 05/06/21 23:05 Dose: 999 mls/hr Documented by: Sodium Chloride (Normal Saline) 1,000 mls @ 999 mls/hr IV .BOLUS ONE Stop: 05/06/21 23:56 Last Admin: 05/07/21 00:40 Dose: 999 mls/hr Documented by: Methylprednisolone Sodium Succinate 125 mg/ Sodium Chloride 102 mls @ 102 mls/hr IV Q6H [facility] Last Admin: 05/07/21 03:21 Dose: Not Given Documented by: Potassium Chloride/Sodium Chloride (1/2 Ns With 20 Meq Kcl) 1,000 mls @ 50 mls/hr IV ASDIRECTED [facility] Last Admin: 05/07/21 03:07 Dose: 50 mls/hr Documented by: Sodium Chloride (Normal Saline) 1,000 mls @ 50 mls/hr IV ASDIRECTED [facility] Last Admin: 05/07/21 16:19 Dose: 50 mls/hr Documented by: Iopamidol (Iopamidol 755 Mg/Ml 75 Ml Bottle) 65 ml IV ONETIME ONE Stop: 05/06/21 23:48 Last Admin: 05/07/21 00:12 Dose: 65 ml Documented by: Ketorolac Tromethamine (Ketorolac 30 Mg/Ml Sdv) 30 mg IVPUSH ONETIME ONE Stop: 05/06/21 22:03 Last Admin: 05/06/21 23:05 Dose: 30 mg Documented by: Ketorolac Tromethamine (Ketorolac 30 Mg/Ml Sdv) 30 mg IVPUSH Q6H [facility] Last Admin: 05/07/21 03:31 Dose: Not Given Documented by: Ketorolac Tromethamine (Ketorolac 30 Mg/Ml Sdv) 30 mg IVPUSH Q6H [facility] Last Admin: 05/07/21 05:08 Dose: 30 mg Documented by: Ketorolac Tromethamine (Ketorolac 30 Mg/Ml Sdv) 30 mg IVPUSH Q6H [facility] Last Admin: 05/09/21 00:21 Dose: Not Given Documented by: Levalbuterol HCl (Levalbuterol Hcl 1.25 Mg/3 Ml Neb) 1.25 mg INH Q6H [facility] Lorazepam (Lorazepam 2 Mg/Ml Sdv) 0.5 mg IV Q4H PRN PRN Reason: Nausea/Vomiting Methylprednisolone Sodium Succinate (Methylprednisolone Sodium Succinate 125 Mg/2 Ml Sdv) Confirm Administered Dose 125 mg .ROUTE .[facility]-MED ONE Stop: 05/07/21 02:01 Last Admin: 05/07/21 03:30 Dose: Not Given Documented by: Methylprednisolone Sodium Succinate (Methylprednisolone Sodium Succinate 125 Mg/2 Ml Sdv) 125 mg IVPUSH Q6H [facility] Last Admin: 05/07/21 02:05 Dose: 125 mg Documented by: - Exam Quality Assessment: Supplemental Oxygen General: Alert, Oriented, Cooperative, No Acute Distress Lungs: Clear to Auscultation (improved air entry), Normal Respiratory Effort, Decreased Breath Sounds (RLL), Crackles (fine LLL). No: Wheezing Cardiovascular: Regular Rate, Regular Rhythm GI/Abdominal Exam: Normal Bowel Sounds, Soft, Non-Tender, No Distention Extremities: No Pedal Edema Peripheral Pulses: 2+: Radial (L), Radial (R), Posterior Tibial (L), Posterior Tibial (R), Dorsalis Pedis (L), Dorsalis Pedis (R) Skin: Warm, Dry, Intact - Patient Data Lab Results Last 24 hrs: Laboratory Results - last 24 hr 05/09/21 05/09/21 Range/Units 06:30 06:30 WBC 14.3 H (3.2-10.1) x10-3/uL RBC 3.53 L (3.90-5.90) x10(6)uL Hgb 11.3 L (12.9-17.7) g/dL Hct 32.2 L (38.3-50.1) % MCV 91.0 (80.8-98.7) fL MCH 32.0 (27.0-33.3) pg MCHC 35.1 (28.7-35.3) g/dL RDW 12.7 (12.4-15.0) % Plt Count 247 (117-477) x10(3)uL MPV 6.9 (6.7-11.0) fL Add Manual Diff Yes Neutrophils % (Manual) 94 H (46-82) % Band Neutrophils % 1 (0-6) % Lymphocytes % (Manual) 2 L (13-37) % Monocytes % (Manual) 3 L (4-12) % Sodium 129 L (135-145) mmol/L Potassium 3.8 (3.5-5.3) mmol/L Chloride 98 L D (100-110) mmol/L Carbon Dioxide 23 (21-32) mmol/L BUN 15 (7-18) mg/dL Creatinine 0.9 (0.70-1.30) mg/dL Est Cr Clr Drug Dosing 91.10 mL/min Estimated GFR (MDRD) > 60 (>60) BUN/Creatinine Ratio 16.7 (9-20) Glucose 128 H (80-116) mg/dL Calcium 7.7 L (8.6-10.2) mg/dL Result Diagrams: 05/09/21 06:30 05/09/21 06:30 Sepsis Event Note - Evaluation Sepsis Screening Result: Sepsis Risk - Focused Exam Vital Signs: Vital Signs Temp Temp Pulse Pulse Resp BP Pulse Ox 05/09/21 08:00 96.1 F L 89 18 126/60 91 L 05/09/21 04:00 97 F 78 22 H 118/56 L 95 05/09/21 01:40 82 82 05/09/21 00:00 97.2 F 82 21 H 112/52 L 94 L - Problem List & Annotations (1) Pneumonia due to COVID-19 virus SNOMED Code(s): 943886080755984353 Code(s): U07.1 - COVID-19; J12.82 - PNEUMONIA DUE TO CORONAVIRUS DISEASE 2019 Status: Acute Current Visit: Yes (2) Hypoxia SNOMED Code(s): 255956513 Code(s): R09.02 - HYPOXEMIA Status: Acute Current Visit: Yes Annotation/Comment:: improving, weaned down to 1L (3) Tachypnea SNOMED Code(s): 777209766 Code(s): R06.82 - TACHYPNEA, NOT ELSEWHERE CLASSIFIED Status: Resolved Current Visit: Yes (4) Hyponatremia SNOMED Code(s): 15353223 Code(s): E87.1 - HYPO-OSMOLALITY AND HYPONATREMIA Status: Acute Current Visit: Yes Annotation/Comment:: improved to 129. (5) Asthma SNOMED Code(s): 729187556 Code(s): J45.909 - UNSPECIFIED ASTHMA, UNCOMPLICATED Status: Chronic Current Visit: Yes - Problem List Review Problem List Initiated/Reviewed/Updated: Yes - My Orders Last 24 Hours: My Active Orders 05/08/21 11:06 Activity as Tolerated [RC] .Routine 05/09/21 08:00 Doxycycline [Vibramycin] 100 mg Sodium Chloride 0.9% [Normal Saline] 100 ml IV Q12H LORazepam [Ativan] 0.5 mg PO Q4H PRN 05/09/21 08:01 Acetaminophen [Tylenol Extra Strength] 500 mg PO Q6H PRN 05/09/21 10:22 Dextromethorphan/guaiFENesin [Robitussin DM] 10 ml PO Q4H PRN 05/10/21 06:00 CBC WITH AUTO DIFF [HEME] Routine CRP [C-REACTIVE PROTEIN] [CHEM] Routine - Plan Plan:: 1. Covid pneumonia: Dexamethasone 6 mg IV daily, day 3. WBC 14.3, neutrophils up to 94%, will start Doxycycline 100 mg IV bid. Repeat CBC & BMP tomorrow. Budesonide 0.5 mg neb bid, Xopenex q6h as needed. Tylenol 500 mg po q6h as needed & Toradol 30 mg IV q6h as needed, Robitussin DM as needed cough. 2. Asthma: Budesonide nebs bid and Xopenex q6h as needed substitute for Symbicort. Montelukast 10 mg bedtime. 3. Hyponatremia: secondary to monoclonal ab, stable at 129, saline lock and continue Gatorade and salty foods. Recheck BMP tomorrow. 4. Discharge planning: continue to wean off oxygen, discharge home once on room air and maintaining his saturations at least 24 hours. Adjust treatments as necessary.
[2021-05-09] MEDS: guaiFENesin/Dextromethorphan 100-10 MG/5 ML Soln 5 ML Cup PO PRN ×2 (10:45→22:06)
[2021-05-09] MEDS: Montelukast 10 MG Tab PO SCH (20:55)
[2021-05-09] MEDS: Sodium Chloride 0.9% 10 ML Syringe FLUSH PRN (21:14)
[2021-05-10] MEDS: Sodium Chloride 0.9% 10 ML Syringe FLUSH PRN ×2 (02:27→08:40)
[2021-05-10] MEDS: Levalbuterol HCl 1.25 MG/3 ML Neb INH PRN ×2 (05:18→20:32)
[2021-05-10] MEDS: Budesonide 0.5 MG/2 ML Neb Susp INH SCH ×2 (08:35→20:10)
[2021-05-10] MEDS: Cholecalciferol (Vitamin D3) 25 MCG Tab PO SCH (08:36)
[2021-05-10] MEDS: Zinc Sulfate 220 MG Cap PO SCH (08:36)
[2021-05-10] MEDS: Enoxaparin 40 MG/0.4 ML Syringe SUBCUT SCH (08:38)
[2021-05-10] MEDS: Doxycycline 100 MG in Sodium Chloride 0.9% 100 ML IV SCH ×2 (08:39→20:11)
[2021-05-10] MEDS: Multivitamin Tab PO SCH (08:41)
[2021-05-10] MEDS: Dexamethasone 4 MG/ML SDV IVPUSH SCH (08:42)
[2021-05-10] MEDS: Polyethylene Glycol 3350 Powder 17 GM Packet PO SCH (10:03)
[2021-05-10] MEDS: Benzonatate 100 MG Cap PO PRN (10:34)
[2021-05-10] MEDS: Codeine/guaiFENesin 10-100 MG/5 ML Syrup 5 ML Cup PO PRN (13:45)
--- NOTE | 2021-05-10 14:32 | PCM.PN ---
- General Info Date of Service: 05/10/21 Subjective Update: Liang was up all night coughing, very tired today. Cough med didn't help last night. He is constipated. He states he gets very short of breath after coughing. - Patient Data Vitals - Most Recent: Last Vital Signs Temp 97.8 F 05/10/21 08:00 Pulse 78 05/10/21 08:00 Resp 22 H 05/10/21 08:00 BP 140/78 05/10/21 08:00 Pulse Ox 92 L 05/10/21 08:00 Weight - Most Recent: 171 lb 4 oz I&O - Last 24 Hours: Intake & Output 05/09/21 05/10/21 05/10/21 22:59 06:59 14:59 Intake Total 1491 88 Balance 1491 88 Lab Results Last 24 Hours: Laboratory Results - last 24 hr 05/10/21 05/10/21 05/10/21 Range/Units 06:25 06:25 06:25 WBC 15.7 H (3.2-10.1) x10-3/uL RBC 3.91 (3.90-5.90) x10(6)uL Hgb 12.3 L (12.9-17.7) g/dL Hct 35.9 L (38.3-50.1) % MCV 91.8 (80.8-98.7) fL MCH 31.5 (27.0-33.3) pg MCHC 34.3 (28.7-35.3) g/dL RDW 12.5 (12.4-15.0) % Plt Count 353 (117-477) x10(3)uL MPV 6.5 L (6.7-11.0) fL Add Manual Diff Yes Neutrophils % (Manual) 94 H (46-82) % Band Neutrophils % 3 (0-6) % Lymphocytes % (Manual) 3 L (13-37) % Sodium 131 L (135-145) mmol/L Potassium 3.8 (3.5-5.3) mmol/L Chloride 97 L (100-110) mmol/L Carbon Dioxide 22 (21-32) mmol/L BUN 19 H (7-18) mg/dL Creatinine 0.9 (0.70-1.30) mg/dL Est Cr Clr Drug Dosing 91.10 mL/min Estimated GFR (MDRD) > 60 (>60) BUN/Creatinine Ratio 21.1 H (9-20) Glucose 116 (80-116) mg/dL Calcium 8.2 L (8.6-10.2) mg/dL C-Reactive Protein 9.2 H* (0.5-0.9) mg/dL Med Orders - Current: Current Medications Acetaminophen (Acetaminophen 500 Mg Tab) 500 mg PO Q6H PRN PRN Reason: Pain/Fever Benzonatate (Benzonatate 100 Mg Cap) 200 mg PO TID PRN PRN Reason: Cough Last Admin: 05/10/21 10:34 Dose: 200 mg Documented by: Budesonide (Budesonide 0.5 Mg/2 Ml Neb Susp) 0.5 mg INH BID@0800,2100 [facility] Last Admin: 05/10/21 08:35 Dose: 0.5 mg Documented by: Cholecalciferol (Cholecalciferol (Vitamin D3) 25 Mcg Tab) 125 mcg PO DAILY@0800 [facility] Last Admin: 05/10/21 08:36 Dose: 125 mcg Documented by: Dexamethasone (Dexamethasone 4 Mg/Ml Sdv) 6 mg IVPUSH DAILY@0800 [facility] Last Admin: 05/10/21 08:42 Dose: 6 mg Documented by: Enoxaparin Sodium (Enoxaparin 40 Mg/0.4 Ml Syringe) 40 mg SUBCUT Q24H [facility] Last Admin: 05/10/21 08:38 Dose: 40 mg Documented by: Guaifenesin/Codeine Phosphate (Codeine/Guaifenesin 10-100 Mg/5 Ml Syrup 5 Ml Cup) 10 ml PO Q4H PRN PRN Reason: Cough Last Admin: 05/10/21 13:45 Dose: 10 ml Documented by: Doxycycline Hyclate 100 mg/ (Sodium Chloride) 100 mls @ 100 mls/hr IV Q12H [facility] Last Admin: 05/10/21 08:39 Dose: 100 mls/hr Documented by: Ketorolac Tromethamine (Ketorolac 30 Mg/Ml Sdv) 30 mg IVPUSH Q6H PRN PRN Reason: pain/fever Last Admin: 05/09/21 08:47 Dose: 30 mg Documented by: Levalbuterol HCl (Levalbuterol Hcl 1.25 Mg/3 Ml Neb) 1.25 mg INH Q6H PRN PRN Reason: Shortness of Breath Last Admin: 05/10/21 05:18 Dose: 1.25 mg Documented by: Lorazepam (Lorazepam 0.5 Mg Tab) 0.5 mg PO Q4H PRN PRN Reason: Anxiety Magnesium Hydroxide (Magnesium Hydroxide 400 Mg/5 Ml Susp 30 Ml Cup) 30 ml PO Q12H PRN PRN Reason: Constipation Montelukast Sodium (Montelukast 10 Mg Tab) 10 mg PO BEDTIME [facility] Last Admin: 05/09/21 20:55 Dose: 10 mg Documented by: Multivitamins/Minerals/Vitamin C (Multivitamin Tab) 1 tab PO DAILY@0800 [facility] Last Admin: 05/10/21 08:41 Dose: 1 tab Documented by: Polyethylene Glycol (Polyethylene Glycol 3350 Powder 17 Gm Packet) 17 gm PO DAILY [facility] Last Admin: 05/10/21 10:03 Dose: 17 gm Documented by: Sodium Chloride (Sodium Chloride 0.9% 10 Ml Syringe) 10 ml FLUSH ASDIRECTED PRN PRN Reason: Keep Vein Open Last Admin: 05/10/21 08:40 Dose: 10 ml Documented by: Zinc Sulfate (Zinc Sulfate 220 Mg Cap) 220 mg PO DAILY@0800 [facility] Last Admin: 05/10/21 08:36 Dose: 220 mg Documented by: Discontinued Medications Acetaminophen (Acetaminophen 500 Mg Tab) 1,000 mg PO ONETIME ONE Stop: 05/06/21 22:04 Last Admin: 05/06/21 23:05 Dose: 1,000 mg Documented by: Acetaminophen (Acetaminophen 500 Mg Tab) 1,000 mg PO Q6H [facility] Acetaminophen (Acetaminophen 500 Mg Tab) 500 mg PO Q6H [facility] Last Admin: 05/09/21 19:44 Dose: Not Given Documented by: Albuterol (Albuterol 0.083% 2.5 Mg/3 Ml Neb Soln) 2.5 mg NEB Q6H [facility] Last Admin: 05/07/21 03:31 Dose: Not Given Documented by: Albuterol (Albuterol 0.083% 2.5 Mg/3 Ml Neb Soln) 2.5 mg NEB Q6H [facility] Last Admin: 05/07/21 05:09 Dose: 2.5 mg Documented by: Albuterol/Ipratropium (Albuterol/Ipratropium 3.0-0.5 Mg/3 Ml Neb Soln) 3 ml NEB ONETIME ONE Stop: 05/06/21 23:10 Last Admin: 05/07/21 00:30 Dose: 3 ml Documented by: Albuterol/Ipratropium (Albuterol/Ipratropium 3.0-0.5 Mg/3 Ml Neb Soln) 3 ml INH Q6H [facility] Last Admin: 05/07/21 08:26 Dose: 3 ml Documented by: Albuterol/Ipratropium (Albuterol/Ipratropium 3.0-0.5 Mg/3 Ml Neb Soln) 3 ml NEB ONETIME ONE Stop: 05/07/21 01:56 Last Admin: 05/07/21 02:05 Dose: 3 ml Documented by: Enoxaparin Sodium (Enoxaparin 40 Mg/0.4 Ml Syringe) 40 mg SUBCUT Q24H [facility] Last Admin: 05/07/21 03:22 Dose: 40 mg Documented by: Guaifenesin/Phenylephrine HCl (Guaifenesin/Dextromethorphan 100-10 Mg/5 Ml Soln 5 Ml Cup) 10 ml PO Q4H PRN PRN Reason: Cough Last Admin: 05/09/21 22:06 Dose: 10 ml Documented by: Sodium Chloride (Normal Saline) 1,000 mls @ 999 mls/hr IV .BOLUS ONE Stop: 05/06/21 22:56 Last Admin: 05/06/21 23:05 Dose: 999 mls/hr Documented by: Sodium Chloride (Normal Saline) 1,000 mls @ 999 mls/hr IV .BOLUS ONE Stop: 05/06/21 23:56 Last Admin: 05/07/21 00:40 Dose: 999 mls/hr Documented by: Methylprednisolone Sodium Succinate 125 mg/ Sodium Chloride 102 mls @ 102 mls/hr IV Q6H [facility] Last Admin: 05/07/21 03:21 Dose: Not Given Documented by: Potassium Chloride/Sodium Chloride (1/2 Ns With 20 Meq Kcl) 1,000 mls @ 50 mls/hr IV ASDIRECTED [facility] Last Admin: 05/07/21 03:07 Dose: 50 mls/hr Documented by: Sodium Chloride (Normal Saline) 1,000 mls @ 50 mls/hr IV ASDIRECTED [facility] Last Admin: 05/07/21 16:19 Dose: 50 mls/hr Documented by: Iopamidol (Iopamidol 755 Mg/Ml 75 Ml Bottle) 65 ml IV ONETIME ONE Stop: 05/06/21 23:48 Last Admin: 05/07/21 00:12 Dose: 65 ml Documented by: Ketorolac Tromethamine (Ketorolac 30 Mg/Ml Sdv) 30 mg IVPUSH ONETIME ONE Stop: 05/06/21 22:03 Last Admin: 05/06/21 23:05 Dose: 30 mg Documented by: Ketorolac Tromethamine (Ketorolac 30 Mg/Ml Sdv) 30 mg IVPUSH Q6H [facility] Last Admin: 05/07/21 03:31 Dose: Not Given Documented by: Ketorolac Tromethamine (Ketorolac 30 Mg/Ml Sdv) 30 mg IVPUSH Q6H [facility] Last Admin: 05/07/21 05:08 Dose: 30 mg Documented by: Ketorolac Tromethamine (Ketorolac 30 Mg/Ml Sdv) 30 mg IVPUSH Q6H [facility] Last Admin: 05/09/21 00:21 Dose: Not Given Documented by: Levalbuterol HCl (Levalbuterol Hcl 1.25 Mg/3 Ml Neb) 1.25 mg INH Q6H [facility] Lorazepam (Lorazepam 2 Mg/Ml Sdv) 0.5 mg IV Q4H PRN PRN Reason: Nausea/Vomiting Methylprednisolone Sodium Succinate (Methylprednisolone Sodium Succinate 125 Mg/2 Ml Sdv) Confirm Administered Dose 125 mg .ROUTE .STK-MED ONE Stop: 05/07/21 02:01 Last Admin: 05/07/21 03:30 Dose: Not Given Documented by: Methylprednisolone Sodium Succinate (Methylprednisolone Sodium Succinate 125 Mg/2 Ml Sdv) 125 mg IVPUSH Q6H [facility] Last Admin: 05/07/21 02:05 Dose: 125 mg Documented by: - Exam General: Alert, Oriented, Cooperative, Mild Distress (tachypneic after coughing spell) Lungs: Clear to Auscultation, Decreased Breath Sounds, Crackles (fine crackles). No: Normal Respiratory Effort (tachypneic), Wheezing Cardiovascular: Regular Rate, Regular Rhythm GI/Abdominal Exam: Normal Bowel Sounds, Soft, Non-Tender, No Distention (Male) Exam: Deferred - Patient Data Lab Results Last 24 hrs: Laboratory Results - last 24 hr 05/10/21 05/10/21 05/10/21 Range/Units 06:25 06:25 06:25 WBC 15.7 H (3.2-10.1) x10-3/uL RBC 3.91 (3.90-5.90) x10(6)uL Hgb 12.3 L (12.9-17.7) g/dL Hct 35.9 L (38.3-50.1) % MCV 91.8 (80.8-98.7) fL MCH 31.5 (27.0-33.3) pg MCHC 34.3 (28.7-35.3) g/dL RDW 12.5 (12.4-15.0) % Plt Count 353 (117-477) x10(3)uL MPV 6.5 L (6.7-11.0) fL Add Manual Diff Yes Neutrophils % (Manual) 94 H (46-82) % Band Neutrophils % 3 (0-6) % Lymphocytes % (Manual) 3 L (13-37) % Sodium 131 L (135-145) mmol/L Potassium 3.8 (3.5-5.3) mmol/L Chloride 97 L (100-110) mmol/L Carbon Dioxide 22 (21-32) mmol/L BUN 19 H (7-18) mg/dL Creatinine 0.9 (0.70-1.30) mg/dL Est Cr Clr Drug Dosing 91.10 mL/min Estimated GFR (MDRD) > 60 (>60) BUN/Creatinine Ratio 21.1 H (9-20) Glucose 116 (80-116) mg/dL Calcium 8.2 L (8.6-10.2) mg/dL C-Reactive Protein 9.2 H* (0.5-0.9) mg/dL Result Diagrams: 05/10/21 06:25 05/10/21 06:25 Sepsis Event Note - Evaluation Sepsis Screening Result: No Definite Risk - Focused Exam Vital Signs: Vital Signs Temp Pulse Pulse Resp BP Pulse Ox 05/10/21 08:00 97.8 F 78 22 H 140/78 92 L 05/10/21 06:15 97.3 F 85 20 146/76 H 90 L 05/10/21 05:18 82 78 - Problem List & Annotations (1) Pneumonia due to COVID-19 virus SNOMED Code(s): 769715699484995650 Code(s): U07.1 - COVID-19; J12.82 - PNEUMONIA DUE TO CORONAVIRUS DISEASE 2019 Status: Acute Current Visit: Yes (2) Tachypnea SNOMED Code(s): 997039560 Code(s): R06.82 - TACHYPNEA, NOT ELSEWHERE CLASSIFIED Status: Resolved Current Visit: Yes (3) Hyponatremia SNOMED Code(s): 21791485 Code(s): E87.1 - HYPO-OSMOLALITY AND HYPONATREMIA Status: Acute Current Visit: Yes Annotation/Comment:: improved to 131. (4) Asthma SNOMED Code(s): 310305567 Code(s): J45.909 - UNSPECIFIED ASTHMA, UNCOMPLICATED Status: Chronic Current Visit: Yes - Problem List Review Problem List Initiated/Reviewed/Updated: Yes - My Orders Last 24 Hours: My Active Orders 05/09/21 20:53 Sodium Chloride 0.9% [Saline Flush] 10 ml FLUSH ASDIRECTED PRN 05/10/21 08:39 Benzonatate [Tessalon Perles] 200 mg PO TID PRN 05/10/21 09:00 polyethylene glycoL 3350 [MiraLAX] 17 gm PO DAILY 05/10/21 10:00 Codeine/guaiFENesin [Robitussin AC] 10 ml PO Q4H PRN - Plan Plan:: 1. Covid pneumonia: Dexamethasone 6 mg IV daily, day 4. WBC 15.7, neutrophils stable 94%, Doxycycline 100 mg IV bid day 2. Budesonide 0.5 mg neb bid, Xopenex q6h as needed. Tylenol 500 mg po q6h as needed & Toradol 30 mg IV q6h as needed, Codeine/Phenergan as needed cough. Tessalon Perles as needed cough. 2. Asthma: Budesonide nebs bid and Xopenex q6h as needed substitute for Symbico rt. Montelukast 10 mg bedtime. 3. 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 Recheck BMP tomorrow. 4. Discharge planning: Weaned off oxygen but still hyponatremic, discharge possibly tomorrow. Adjust treatments as necessary.
[2021-05-10] MEDS: Montelukast 10 MG Tab PO SCH (20:10)
[2021-05-11] MEDS: Codeine/guaiFENesin 10-100 MG/5 ML Syrup 5 ML Cup PO PRN ×4 (05:14→21:27)
[2021-05-11] MEDS: Dexamethasone 4 MG/ML SDV IVPUSH SCH (08:08)
[2021-05-11] MEDS: Sodium Chloride 0.9% 10 ML Syringe FLUSH PRN ×5 (08:09→21:26)
[2021-05-11] MEDS: Enoxaparin 40 MG/0.4 ML Syringe SUBCUT SCH ×2 (08:20→14:32)
[2021-05-11] MEDS: Budesonide 0.5 MG/2 ML Neb Susp INH SCH ×2 (08:21→20:16)
[2021-05-11] MEDS: Multivitamin Tab PO SCH (08:21)
[2021-05-11] MEDS: Doxycycline 100 MG in Sodium Chloride 0.9% 100 ML IV SCH ×2 (08:22→20:15)
[2021-05-11] MEDS: Cholecalciferol (Vitamin D3) 25 MCG Tab PO SCH (08:22)
[2021-05-11] MEDS: Zinc Sulfate 220 MG Cap PO SCH (08:22)
[2021-05-11] MEDS: Polyethylene Glycol 3350 Powder 17 GM Packet PO SCH ×2 (08:23→11:17)
[2021-05-11] MEDS: Levalbuterol HCl 1.25 MG/3 ML Neb INH PRN ×2 (10:32→20:35)
[2021-05-11] MEDS: cefTRIAXone 2 GM Vial IVPUSH SCH (10:42)
[2021-05-11] MEDS: Benzonatate 100 MG Cap PO PRN ×3 (10:42→21:27)
[2021-05-11] MEDS ORDERED: Iopamidol 755 Mg/ML 100 ML Bottle IV ONE (10:58)
[2021-05-11] MEDS: methylPREDNISolone Sodium Succinate 40 MG/1 ML SDV IVPUSH SCH (14:32)
--- NOTE | 2021-05-11 16:37 | PCM.PN ---
- General Info Date of Service: 05/11/21 Subjective Update: Liang desaturated overnight, denies any chest pain but states shortness of breath is worse especially with exertion, also has panic feeling. He was up to 4L by nc but he was at 100% so turned down to 2L & was 94%. He was 89% on room air. No fevers. Coughing up pink fluid. - Patient Data Vitals - Most Recent: Last Vital Signs Temp 98.7 F 05/11/21 16:00 Pulse 91 05/11/21 16:00 Resp 22 H 05/11/21 16:00 BP 146/84 H 05/11/21 16:00 Pulse Ox 96 05/11/21 16:00 Weight - Most Recent: 171 lb 4 oz I&O - Last 24 Hours: Intake & Output 05/11/21 05/11/21 05/11/21 06:59 14:59 22:59 Intake Total 300 100 Balance 300 100 Lab Results Last 24 Hours: Laboratory Results - last 24 hr 05/11/21 05/11/21 Range/Units 06:20 06:40 WBC 14.0 H (3.2-10.1) x10-3/uL RBC 3.86 L (3.90-5.90) x10(6)uL Hgb 12.3 L (12.9-17.7) g/dL Hct 36.1 L (38.3-50.1) % MCV 93.5 (80.8-98.7) fL MCH 31.7 (27.0-33.3) pg MCHC 33.9 (28.7-35.3) g/dL RDW 12.4 (12.4-15.0) % Plt Count 258 (117-477) x10(3)uL MPV 6.7 (6.7-11.0) fL Add Manual Diff Yes Neutrophils % (Manual) 83 H (46-82) % Band Neutrophils % 2 (0-6) % Lymphocytes % (Manual) 6 L (13-37) % Monocytes % (Manual) 7 (4-12) % Metamyelocytes % 1 H (0-0) % Myelocytes % 1 H (0-0) % Sodium 134 L (135-145) mmol/L Potassium 3.8 (3.5-5.3) mmol/L Chloride 101 (100-110) mmol/L Carbon Dioxide 21 (21-32) mmol/L BUN 18 (7-18) mg/dL Creatinine 0.9 (0.70-1.30) mg/dL Est Cr Clr Drug Dosing 91.10 mL/min Estimated GFR (MDRD) > 60 (>60) BUN/Creatinine Ratio 20.0 (9-20) Glucose 93 (80-116) mg/dL Calcium 8.2 L (8.6-10.2) mg/dL Med Orders - Current: Current Medications Acetaminophen (Acetaminophen 500 Mg Tab) 500 mg PO Q6H PRN PRN Reason: Pain/Fever Benzonatate (Benzonatate 100 Mg Cap) 200 mg PO TID PRN PRN Reason: Cough Last Admin: 05/11/21 10:42 Dose: 200 mg Documented by: Budesonide (Budesonide 0.5 Mg/2 Ml Neb Susp) 0.5 mg INH BID@0800,2100 [facility] Last Admin: 05/11/21 08:21 Dose: 0.5 mg Documented by: Ceftriaxone Sodium (Ceftriaxone 2 Gm Vial) 2 gm IVPUSH Q24H [facility] Last Admin: 05/11/21 10:42 Dose: 2 gm Documented by: Cholecalciferol (Cholecalciferol (Vitamin D3) 25 Mcg Tab) 125 mcg PO DAILY@0800 [facility] Last Admin: 05/11/21 08:22 Dose: 125 mcg Documented by: Enoxaparin Sodium (Enoxaparin 40 Mg/0.4 Ml Syringe) 40 mg SUBCUT Q12H [facility] Last Admin: 05/11/21 14:32 Dose: 40 mg Documented by: Guaifenesin/Codeine Phosphate (Codeine/Guaifenesin 10-100 Mg/5 Ml Syrup 5 Ml Cup) 10 ml PO Q4H PRN PRN Reason: Cough Last Admin: 05/11/21 10:42 Dose: 10 ml Documented by: Hydroxyzine Pamoate (Hydroxyzine Pamoate 50 Mg Cap) 50 mg PO Q6H PRN PRN Reason: Anxiety Last Admin: 05/11/21 14:31 Dose: 50 mg Documented by: Doxycycline Hyclate 100 mg/ (Sodium Chloride) 100 mls @ 100 mls/hr IV Q12H [facility] Last Admin: 05/11/21 08:22 Dose: 100 mls/hr Documented by: Ketorolac Tromethamine (Ketorolac 30 Mg/Ml Sdv) 30 mg IVPUSH Q6H PRN PRN Reason: pain/fever Last Admin: 05/09/21 08:47 Dose: 30 mg Documented by: Levalbuterol HCl (Levalbuterol Hcl 1.25 Mg/3 Ml Neb) 1.25 mg INH Q6H PRN PRN Reason: Shortness of Breath Last Admin: 05/11/21 10:32 Dose: 1.25 mg Documented by: Lorazepam (Lorazepam 0.5 Mg Tab) 0.5 mg PO Q4H PRN PRN Reason: Anxiety Magnesium Hydroxide (Magnesium Hydroxide 400 Mg/5 Ml Susp 30 Ml Cup) 30 ml PO Q12H PRN PRN Reason: Constipation Methylprednisolone Sodium Succinate (Methylprednisolone Sodium Succinate 40 Mg/1 Ml Sdv) 40 mg IVPUSH Q12H [facility] Last Admin: 05/11/21 14:32 Dose: 40 mg Documented by: Montelukast Sodium (Montelukast 10 Mg Tab) 10 mg PO BEDTIME [facility] Last Admin: 05/10/21 20:10 Dose: 10 mg Documented by: Multivitamins/Minerals/Vitamin C (Multivitamin Tab) 1 tab PO DAILY@0800 [facility] Last Admin: 05/11/21 08:21 Dose: 1 tab Documented by: Polyethylene Glycol (Polyethylene Glycol 3350 Powder 17 Gm Packet) 17 gm PO DAILY [facility] Last Admin: 05/11/21 11:17 Dose: Not Given Documented by: Sodium Chloride (Sodium Chloride 0.9% 10 Ml Syringe) 10 ml FLUSH ASDIRECTED PRN PRN Reason: Keep Vein Open Last Admin: 05/11/21 14:32 Dose: 10 ml Documented by: Zinc Sulfate (Zinc Sulfate 220 Mg Cap) 220 mg PO DAILY@0800 [facility] Last Admin: 05/11/21 08:22 Dose: 220 mg Documented by: Discontinued Medications Acetaminophen (Acetaminophen 500 Mg Tab) 1,000 mg PO ONETIME ONE Stop: 05/06/21 22:04 Last Admin: 05/06/21 23:05 Dose: 1,000 mg Documented by: Acetaminophen (Acetaminophen 500 Mg Tab) 1,000 mg PO Q6H [facility] Acetaminophen (Acetaminophen 500 Mg Tab) 500 mg PO Q6H [facility] Last Admin: 05/09/21 19:44 Dose: Not Given Documented by: Albuterol (Albuterol 0.083% 2.5 Mg/3 Ml Neb Soln) 2.5 mg NEB Q6H [facility] Last Admin: 05/07/21 03:31 Dose: Not Given Documented by: Albuterol (Albuterol 0.083% 2.5 Mg/3 Ml Neb Soln) 2.5 mg NEB Q6H [facility] Last Admin: 05/07/21 05:09 Dose: 2.5 mg Documented by: Albuterol/Ipratropium (Albuterol/Ipratropium 3.0-0.5 Mg/3 Ml Neb Soln) 3 ml NEB ONETIME ONE Stop: 05/06/21 23:10 Last Admin: 05/07/21 00:30 Dose: 3 ml Documented by: Albuterol/Ipratropium (Albuterol/Ipratropium 3.0-0.5 Mg/3 Ml Neb Soln) 3 ml INH Q6H [facility] Last Admin: 05/07/21 08:26 Dose: 3 ml Documented by: Albuterol/Ipratropium (Albuterol/Ipratropium 3.0-0.5 Mg/3 Ml Neb Soln) 3 ml NEB ONETIME ONE Stop: 05/07/21 01:56 Last Admin: 05/07/21 02:05 Dose: 3 ml Documented by: Dexamethasone (Dexamethasone 4 Mg/Ml Sdv) 6 mg IVPUSH DAILY@0800 [facility] Last Admin: 05/11/21 08:08 Dose: 6 mg Documented by: Enoxaparin Sodium (Enoxaparin 40 Mg/0.4 Ml Syringe) 40 mg SUBCUT Q24H [facility] Last Admin: 05/07/21 03:22 Dose: 40 mg Documented by: Enoxaparin Sodium (Enoxaparin 40 Mg/0.4 Ml Syringe) 40 mg SUBCUT Q24H [facility] Last Admin: 05/11/21 08:20 Dose: 40 mg Documented by: Guaifenesin/Phenylephrine HCl (Guaifenesin/Dextromethorphan 100-10 Mg/5 Ml Soln 5 Ml Cup) 10 ml PO Q4H PRN PRN Reason: Cough Last Admin: 05/09/21 22:06 Dose: 10 ml Documented by: Sodium Chloride (Normal Saline) 1,000 mls @ 999 mls/hr IV .BOLUS ONE Stop: 05/06/21 22:56 Last Admin: 05/06/21 23:05 Dose: 999 mls/hr Documented by: Sodium Chloride (Normal Saline) 1,000 mls @ 999 mls/hr IV .BOLUS ONE Stop: 05/06/21 23:56 Last Admin: 05/07/21 00:40 Dose: 999 mls/hr Documented by: Methylprednisolone Sodium Succinate 125 mg/ Sodium Chloride 102 mls @ 102 mls/hr IV Q6H [facility] Last Admin: 05/07/21 03:21 Dose: Not Given Documented by: Potassium Chloride/Sodium Chloride (1/2 Ns With 20 Meq Kcl) 1,000 mls @ 50 mls/hr IV ASDIRECTED [facility] Last Admin: 05/07/21 03:07 Dose: 50 mls/hr Documented by: Sodium Chloride (Normal Saline) 1,000 mls @ 50 mls/hr IV ASDIRECTED [facility] Last Admin: 05/07/21 16:19 Dose: 50 mls/hr Documented by: Iopamidol (Iopamidol 755 Mg/Ml 75 Ml Bottle) 65 ml IV ONETIME ONE Stop: 05/06/21 23:48 Last Admin: 05/07/21 00:12 Dose: 65 ml Documented by: Iopamidol (Iopamidol 755 Mg/Ml 100 Ml Bottle) 100 ml IV . DIRECTED ONE Stop: 05/11/21 10:59 Last Admin: 05/11/21 12:06 Dose: 90 ml Documented by: Ketorolac Tromethamine (Ketorolac 30 Mg/Ml Sdv) 30 mg IVPUSH ONETIME ONE Stop: 05/06/21 22:03 Last Admin: 05/06/21 23:05 Dose: 30 mg Documented by: Ketorolac Tromethamine (Ketorolac 30 Mg/Ml Sdv) 30 mg IVPUSH Q6H [facility] Last Admin: 05/07/21 03:31 Dose: Not Given Documented by: Ketorolac Tromethamine (Ketorolac 30 Mg/Ml Sdv) 30 mg IVPUSH Q6H [facility] Last Admin: 05/07/21 05:08 Dose: 30 mg Documented by: Ketorolac Tromethamine (Ketorolac 30 Mg/Ml Sdv) 30 mg IVPUSH Q6H [facility] Last Admin: 05/09/21 00:21 Dose: Not Given Documented by: Levalbuterol HCl (Levalbuterol Hcl 1.25 Mg/3 Ml Neb) 1.25 mg INH Q6H [facility] Lorazepam (Lorazepam 2 Mg/Ml Sdv) 0.5 mg IV Q4H PRN PRN Reason: Nausea/Vomiting Methylprednisolone Sodium Succinate (Methylprednisolone Sodium Succinate 125 Mg/2 Ml Sdv) Confirm Administered Dose 125 mg .ROUTE .STK-MED ONE Stop: 05/07/21 02:01 Last Admin: 05/07/21 03:30 Dose: Not Given Documented by: Methylprednisolone Sodium Succinate (Methylprednisolone Sodium Succinate 125 Mg/2 Ml Sdv) 125 mg IVPUSH Q6H [facility] Last Admin: 05/07/21 02:05 Dose: 125 mg Documented by: - Exam Quality Assessment: Supplemental Oxygen (2L nc) General: Alert, Oriented, Cooperative, Mild Distress Lungs: Clear to Auscultation (BUL), Decreased Breath Sounds (BLL), Crackles (occasional bibasilar). No: Normal Respiratory Effort (increased) Cardiovascular: Regular Rate, Regular Rhythm GI/Abdominal Exam: Normal Bowel Sounds, Soft, Non-Tender, No Distention Extremities: No Pedal Edema Skin: Warm, Dry, Intact Psy/Mental Status: Anxious - Patient Data Lab Results Last 24 hrs: Laboratory Results - last 24 hr 05/11/21 05/11/21 Range/Units 06:20 06:40 WBC 14.0 H (3.2-10.1) x10-3/uL RBC 3.86 L (3.90-5.90) x10(6)uL Hgb 12.3 L (12.9-17.7) g/dL Hct 36.1 L (38.3-50.1) % MCV 93.5 (80.8-98.7) fL MCH 31.7 (27.0-33.3) pg MCHC 33.9 (28.7-35.3) g/dL RDW 12.4 (12.4-15.0) % Plt Count 258 (117-477) x10(3)uL MPV 6.7 (6.7-11.0) fL Add Manual Diff Yes Neutrophils % (Manual) 83 H (46-82) % Band Neutrophils % 2 (0-6) % Lymphocytes % (Manual) 6 L (13-37) % Monocytes % (Manual) 7 (4-12) % Metamyelocytes % 1 H (0-0) % Myelocytes % 1 H (0-0) % Sodium 134 L (135-145) mmol/L Potassium 3.8 (3.5-5.3) mmol/L Chloride 101 (100-110) mmol/L Carbon Dioxide 21 (21-32) mmol/L BUN 18 (7-18) mg/dL Creatinine 0.9 (0.70-1.30) mg/dL Est Cr Clr Drug Dosing 91.10 mL/min Estimated GFR (MDRD) > 60 (>60) BUN/Creatinine Ratio 20.0 (9-20) Glucose 93 (80-116) mg/dL Calcium 8.2 L (8.6-10.2) mg/dL Result Diagrams: 05/11/21 06:20 05/11/21 06:40 Sepsis Event Note - Evaluation Sepsis Screening Result: Sepsis Risk - Focused Exam Vital Signs: Vital Signs Temp Temp Pulse Resp BP BP Pulse Ox 05/11/21 16:00 98.7 F 91 22 H 146/84 H 96 05/11/21 11:29 98.4 F 100 26 H 159/84 H 94 L 05/11/21 10:40 100 05/11/21 09:00 05/11/21 08:00 98.8 F 89 22 H 155/84 H 98 05/11/21 05:15 98.1 F 95 20 139/87 95 Pulse Ox 05/11/21 16:00 05/11/21 11:29 05/11/21 10:40 05/11/21 09:00 93 L 05/11/21 08:00 88 L 05/11/21 05:15 - Problem List & Annotations (1) Pneumonia due to COVID-19 virus SNOMED Code(s): 578493538008547816 Code(s): U07.1 - COVID-19; J12.82 - PNEUMONIA DUE TO CORONAVIRUS DISEASE 2019 Status: Acute Current Visit: Yes Annotation/Comment:: worsening, back on O2 at 2L (2) Tachypnea SNOMED Code(s): 824594615 Code(s): R06.82 - TACHYPNEA, NOT ELSEWHERE CLASSIFIED Status: Acute Current Visit: Yes (3) Hyponatremia SNOMED Code(s): 17469770 Code(s): E87.1 - HYPO-OSMOLALITY AND HYPONATREMIA Status: Acute Current Visit: Yes Annotation/Comment:: improved to 134. (4) Asthma SNOMED Code(s): 703778439 Code(s): J45.909 - UNSPECIFIED ASTHMA, UNCOMPLICATED Status: Chronic Current Visit: Yes - Problem List Review Problem List Initiated/Reviewed/Updated: Yes - My Orders Last 24 Hours: My Active Orders 05/11/21 10:51 Ang Chest [CT] Routine 05/11/21 11:00 cefTRIAXone [Rocephin] 2 gm IVPUSH Q24H 05/11/21 14:07 hydrOXYzine pamoate [Vistaril] 50 mg PO Q6H PRN 05/11/21 15:00 Enoxaparin [Lovenox] 40 mg SUBCUT Q12H methylPREDNISolone Sod Succ [Solu-MEDROL] 40 mg IVPUSH Q12H 05/12/21 06:00 CBC WITH AUTO DIFF [HEME] Routine COMPREHENSIVE METABOLIC PN,CMP [CHEM] Routine CRP [C-REACTIVE PROTEIN] [CHEM] Routine - Plan Plan:: 1. Covid pneumonia: worsening, back on O2. CTA showed no PE, worsening infiltrates. Dexamethasone 6 mg IV daily, day 5. WBC 14.0, neutrophils 84%, Doxycycline 100 mg IV bid day 3. Rocephin 2G IV q24h started. Budesonide 0.5 mg neb bid, Xopenex q6h as needed. Tylenol 500 mg po q6h as needed & Toradol 30 mg IV q6h as needed, Codeine/Phenergan as needed cough. Tessalon Perles as needed cough. Spoke with Dr Sewell at [facility], reviewed his hospital course, since he was not requiring high flow oxygen they would not accept in transfer but did recommend changing to SoluMedrol 40 mg IV bid(could go up to q8h if needed), Lovenox 40 mg bid(on daily now), add Vistaril as needed anxiety to avoid respiratory depression & would not change antibiotics; if his condition changes to where he is on HFNC and high volumes then to call back. CBC, CMP and CRP tomorrow. Updated pt & his . Also advised to resume prone position as infiltrates mainly in posterior lobes. 2. Asthma: Budesonide nebs bid and Xopenex q6h as needed substitute for Symbicort. Montelukast 10 mg bedtime. 3. Hyponatremia: improved at 134, Recheck BMP tomorrow. 4. Discharge planning: worsening infiltrates, covered for secondary bacterial pneumonia. Adjust treatments as necessary.
[2021-05-11] MEDS: Montelukast 10 MG Tab PO SCH (20:16)
[2021-05-12] MEDS: methylPREDNISolone Sodium Succinate 40 MG/1 ML SDV IVPUSH SCH ×2 (02:33→14:23)
[2021-05-12] MEDS: Enoxaparin 40 MG/0.4 ML Syringe SUBCUT SCH ×2 (02:33→14:23)
[2021-05-12] MEDS: Sodium Chloride 0.9% 10 ML Syringe FLUSH PRN ×5 (02:33→19:58)
[2021-05-12] MEDS: Multivitamin Tab PO SCH (08:07)
[2021-05-12] MEDS: Levalbuterol HCl 1.25 MG/3 ML Neb INH PRN ×2 (08:08→20:06)
[2021-05-12] MEDS: Budesonide 0.5 MG/2 ML Neb Susp INH SCH ×2 (08:08→20:00)
[2021-05-12] MEDS: Cholecalciferol (Vitamin D3) 25 MCG Tab PO SCH (08:08)
[2021-05-12] MEDS: Doxycycline 100 MG in Sodium Chloride 0.9% 100 ML IV SCH ×2 (08:08→19:55)
[2021-05-12] MEDS: Polyethylene Glycol 3350 Powder 17 GM Packet PO SCH (08:09)
[2021-05-12] MEDS: Zinc Sulfate 220 MG Cap PO SCH (08:09)
[2021-05-12] MEDS: Codeine/guaiFENesin 10-100 MG/5 ML Syrup 5 ML Cup PO PRN ×2 (09:37→22:13)
[2021-05-12] MEDS: Benzonatate 100 MG Cap PO PRN ×2 (09:37→22:13)
[2021-05-12] MEDS: cefTRIAXone 2 GM Vial IVPUSH SCH (10:14)
--- NOTE | 2021-05-12 13:30 | PCM.PN ---
- General Info Date of Service: 05/12/21 Subjective Update: Slept better, still coughing quite a bit, Xopenex helps. He states he has not been eating very well for about 2 weeks prior to coming in. He had a sinus infection so was eating less prior to coming down with Covid. He is on a gluten, lactose free diet. States he eats meat at least 1 meal/day, will have eggs sometimes for breakfast. He can tolerate dry cheeses and yogurts, they don't give him diarrhea. No fevers. Still 1-2 L keeping sats around 92-93%. - Patient Data Vitals - Most Recent: Last Vital Signs Temp 98.4 F 05/12/21 12:00 Pulse 84 05/12/21 12:00 Resp 22 H 05/12/21 12:00 BP 124/79 05/12/21 08:00 Pulse Ox 97 05/12/21 12:00 Weight - Most Recent: 171 lb 4 oz I&O - Last 24 Hours: Intake & Output 05/11/21 05/12/21 05/12/21 22:59 06:59 14:59 Intake Total 100 570 Balance 100 570 Lab Results Last 24 Hours: Laboratory Results - last 24 hr 05/11/21 05/12/21 05/12/21 Range/Units 06:20 06:30 06:30 WBC 14.0 H 8.2 (3.2-10.1) x10-3/uL RBC 3.86 L 3.84 L (3.90-5.90) x10(6)uL Hgb 12.3 L 12.5 L (12.9-17.7) g/dL Hct 36.1 L 35.2 L (38.3-50.1) % MCV 93.5 91.8 (80.8-98.7) fL MCH 31.7 32.7 (27.0-33.3) pg MCHC 33.9 35.6 H (28.7-35.3) g/dL RDW 12.4 12.6 (12.4-15.0) % Plt Count 258 262 (117-477) x10(3)uL MPV 6.7 6.7 (6.7-11.0) fL Add Manual Diff Yes Yes Neutrophils % (Manual) 83 H 89 H (46-82) % Band Neutrophils % 2 4 (0-6) % Lymphocytes % (Manual) 6 L 4 L (13-37) % Monocytes % (Manual) 7 (4-12) % Metamyelocytes % 1 H 2 H (0-0) % Myelocytes % 1 H 1 H (0-0) % Sodium 132 L (135-145) mmol/L Potassium 4.1 (3.5-5.3) mmol/L Chloride 100 (100-110) mmol/L Carbon Dioxide 21 (21-32) mmol/L BUN 22 H (7-18) mg/dL Creatinine 0.8 (0.70-1.30) mg/dL Est Cr Clr Drug Dosing 102.49 mL/min Estimated GFR (MDRD) > 60 (>60) BUN/Creatinine Ratio 27.5 H (9-20) Glucose 139 H (80-116) mg/dL Calcium 8.0 L (8.6-10.2) mg/dL Total Bilirubin 0.7 (0.1-1.3) mg/dL AST 46 H D (5-25) IU/L ALT 131 H D (12-36) U/L Alkaline Phosphatase 128 H (56-112) IU/L C-Reactive Protein (0.5-0.9) mg/dL Total Protein 5.7 L (6.0-8.0) g/dL Albumin 1.8 L (3.2-4.6) g/dL Globulin 3.9 g/dL Albumin/Globulin Ratio 0.5 // Range/Units 06:30 WBC (3.2-10.1) x10-3/uL RBC (3.90-5.90) x10(6)uL Hgb (12.9-17.7) g/dL Hct (38.3-50.1) % MCV (80.8-98.7) fL MCH (27.0-33.3) pg MCHC (28.7-35.3) g/dL RDW (12.4-15.0) % Plt Count (117-477) x10(3)uL MPV (6.7-11.0) fL Add Manual Diff Neutrophils % (Manual) (46-82) % Band Neutrophils % (0-6) % Lymphocytes % (Manual) (13-37) % Monocytes % (Manual) (4-12) % Metamyelocytes % (0-0) % Myelocytes % (0-0) % Sodium (135-145) mmol/L Potassium (3.5-5.3) mmol/L Chloride (100-110) mmol/L Carbon Dioxide (21-32) mmol/L BUN (7-18) mg/dL Creatinine (0.70-1.30) mg/dL Est Cr Clr Drug Dosing mL/min Estimated GFR (MDRD) (>60) BUN/Creatinine Ratio (9-20) Glucose (80-116) mg/dL Calcium (8.6-10.2) mg/dL Total Bilirubin (0.1-1.3) mg/dL AST (5-25) IU/L ALT (12-36) U/L Alkaline Phosphatase (56-112) IU/L C-Reactive Protein 15.1 H* (0.5-0.9) mg/dL Total Protein (6.0-8.0) g/dL Albumin (3.2-4.6) g/dL Globulin g/dL Albumin/Globulin Ratio Med Orders - Current: Current Medications Acetaminophen (Acetaminophen 500 Mg Tab) 500 mg PO Q6H PRN PRN Reason: Pain/Fever Benzonatate (Benzonatate 100 Mg Cap) 200 mg PO TID PRN PRN Reason: Cough Last Admin: 05/12/21 09:37 Dose: 200 mg Documented by: Budesonide (Budesonide 0.5 Mg/2 Ml Neb Susp) 0.5 mg INH BID@0800,2100 [facility] Last Admin: 05/12/21 08:08 Dose: 0.5 mg Documented by: Ceftriaxone Sodium (Ceftriaxone 2 Gm Vial) 2 gm IVPUSH Q24H [facility] Last Admin: 05/12/21 10:14 Dose: 2 gm Documented by: Cholecalciferol (Cholecalciferol (Vitamin D3) 25 Mcg Tab) 125 mcg PO DAILY@0800 [facility] Last Admin: 05/12/21 08:08 Dose: 125 mcg Documented by: Enoxaparin Sodium (Enoxaparin 40 Mg/0.4 Ml Syringe) 40 mg SUBCUT Q12H [facility] Last Admin: 05/12/21 02:33 Dose: 40 mg Documented by: Guaifenesin/Codeine Phosphate (Codeine/Guaifenesin 10-100 Mg/5 Ml Syrup 5 Ml Cup) 10 ml PO Q4H PRN PRN Reason: Cough Last Admin: 05/12/21 09:37 Dose: 10 ml Documented by: Hydroxyzine Pamoate (Hydroxyzine Pamoate 50 Mg Cap) 50 mg PO Q6H PRN PRN Reason: Anxiety Last Admin: 05/12/21 09:37 Dose: 50 mg Documented by: Doxycycline Hyclate 100 mg/ (Sodium Chloride) 100 mls @ 100 mls/hr IV Q12H [facility] Last Admin: 05/12/21 08:08 Dose: 100 mls/hr Documented by: Ketorolac Tromethamine (Ketorolac 30 Mg/Ml Sdv) 30 mg IVPUSH Q6H PRN PRN Reason: pain/fever Last Admin: 05/09/21 08:47 Dose: 30 mg Documented by: Levalbuterol HCl (Levalbuterol Hcl 1.25 Mg/3 Ml Neb) 1.25 mg INH Q6H PRN PRN Reason: Shortness of Breath Last Admin: 05/12/21 08:08 Dose: 1.25 mg Documented by: Lorazepam (Lorazepam 0.5 Mg Tab) 0.5 mg PO Q4H PRN PRN Reason: Anxiety Magnesium Hydroxide (Magnesium Hydroxide 400 Mg/5 Ml Susp 30 Ml Cup) 30 ml PO Q12H PRN PRN Reason: Constipation Methylprednisolone Sodium Succinate (Methylprednisolone Sodium Succinate 40 Mg/1 Ml Sdv) 40 mg IVPUSH Q12H [facility] Last Admin: 05/12/21 02:33 Dose: 40 mg Documented by: Montelukast Sodium (Montelukast 10 Mg Tab) 10 mg PO BEDTIME [facility] Last Admin: 05/11/21 20:16 Dose: 10 mg Documented by: Multivitamins/Minerals/Vitamin C (Multivitamin Tab) 1 tab PO DAILY@0800 [facility] Last Admin: 05/12/21 08:07 Dose: 1 tab Documented by: Polyethylene Glycol (Polyethylene Glycol 3350 Powder 17 Gm Packet) 17 gm PO DAILY [facility] Last Admin: 05/12/21 08:09 Dose: Not Given Documented by: Sodium Chloride (Sodium Chloride 0.9% 10 Ml Syringe) 10 ml FLUSH ASDIRECTED PRN PRN Reason: Keep Vein Open Last Admin: 05/12/21 10:14 Dose: 10 ml Documented by: Zinc Sulfate (Zinc Sulfate 220 Mg Cap) 220 mg PO DAILY@0800 [facility] Last Admin: 05/12/21 08:09 Dose: 220 mg Documented by: Discontinued Medications Acetaminophen (Acetaminophen 500 Mg Tab) 1,000 mg PO ONETIME ONE Stop: 05/06/21 22:04 Last Admin: 05/06/21 23:05 Dose: 1,000 mg Documented by: Acetaminophen (Acetaminophen 500 Mg Tab) 1,000 mg PO Q6H [facility] Acetaminophen (Acetaminophen 500 Mg Tab) 500 mg PO Q6H [facility] Last Admin: 05/09/21 19:44 Dose: Not Given Documented by: Albuterol (Albuterol 0.083% 2.5 Mg/3 Ml Neb Soln) 2.5 mg NEB Q6H [facility] Last Admin: 05/07/21 03:31 Dose: Not Given Documented by: Albuterol (Albuterol 0.083% 2.5 Mg/3 Ml Neb Soln) 2.5 mg NEB Q6H [facility] Last Admin: 05/07/21 05:09 Dose: 2.5 mg Documented by: Albuterol/Ipratropium (Albuterol/Ipratropium 3.0-0.5 Mg/3 Ml Neb Soln) 3 ml NEB ONETIME ONE Stop: 05/06/21 23:10 Last Admin: 05/07/21 00:30 Dose: 3 ml Documented by: Albuterol/Ipratropium (Albuterol/Ipratropium 3.0-0.5 Mg/3 Ml Neb Soln) 3 ml INH Q6H [facility] Last Admin: 05/07/21 08:26 Dose: 3 ml Documented by: Albuterol/Ipratropium (Albuterol/Ipratropium 3.0-0.5 Mg/3 Ml Neb Soln) 3 ml NEB ONETIME ONE Stop: 05/07/21 01:56 Last Admin: 05/07/21 02:05 Dose: 3 ml Documented by: Dexamethasone (Dexamethasone 4 Mg/Ml Sdv) 6 mg IVPUSH DAILY@0800 [facility] Last Admin: 05/11/21 08:08 Dose: 6 mg Documented by: Enoxaparin Sodium (Enoxaparin 40 Mg/0.4 Ml Syringe) 40 mg SUBCUT Q24H [facility] Last Admin: 05/07/21 03:22 Dose: 40 mg Documented by: Enoxaparin Sodium (Enoxaparin 40 Mg/0.4 Ml Syringe) 40 mg SUBCUT Q24H [facility] Last Admin: 05/11/21 08:20 Dose: 40 mg Documented by: Guaifenesin/Phenylephrine HCl (Guaifenesin/Dextromethorphan 100-10 Mg/5 Ml Soln 5 Ml Cup) 10 ml PO Q4H PRN PRN Reason: Cough Last Admin: 05/09/21 22:06 Dose: 10 ml Documented by: Sodium Chloride (Normal Saline) 1,000 mls @ 999 mls/hr IV .BOLUS ONE Stop: 05/06/21 22:56 Last Admin: 05/06/21 23:05 Dose: 999 mls/hr Documented by: Sodium Chloride (Normal Saline) 1,000 mls @ 999 mls/hr IV .BOLUS ONE Stop: 05/06/21 23:56 Last Admin: 05/07/21 00:40 Dose: 999 mls/hr Documented by: Methylprednisolone Sodium Succinate 125 mg/ Sodium Chloride 102 mls @ 102 mls/hr IV Q6H [facility] Last Admin: 05/07/21 03:21 Dose: Not Given Documented by: Potassium Chloride/Sodium Chloride (1/2 Ns With 20 Meq Kcl) 1,000 mls @ 50 mls/hr IV ASDIRECTED [facility] Last Admin: 05/07/21 03:07 Dose: 50 mls/hr Documented by: Sodium Chloride (Normal Saline) 1,000 mls @ 50 mls/hr IV ASDIRECTED [facility] Last Admin: 05/07/21 16:19 Dose: 50 mls/hr Documented by: Iopamidol (Iopamidol 755 Mg/Ml 75 Ml Bottle) 65 ml IV ONETIME ONE Stop: 05/06/21 23:48 Last Admin: 05/07/21 00:12 Dose: 65 ml Documented by: Iopamidol (Iopamidol 755 Mg/Ml 100 Ml Bottle) 100 ml IV . DIRECTED ONE Stop: 05/11/21 10:59 Last Admin: 05/11/21 12:06 Dose: 90 ml Documented by: Ketorolac Tromethamine (Ketorolac 30 Mg/Ml Sdv) 30 mg IVPUSH ONETIME ONE Stop: 05/06/21 22:03 Last Admin: 05/06/21 23:05 Dose: 30 mg Documented by: Ketorolac Tromethamine (Ketorolac 30 Mg/Ml Sdv) 30 mg IVPUSH Q6H [facility] Last Admin: 05/07/21 03:31 Dose: Not Given Documented by: Ketorolac Tromethamine (Ketorolac 30 Mg/Ml Sdv) 30 mg IVPUSH Q6H [facility] Last Admin: 05/07/21 05:08 Dose: 30 mg Documented by: Ketorolac Tromethamine (Ketorolac 30 Mg/Ml Sdv) 30 mg IVPUSH Q6H [facility] Last Admin: 05/09/21 00:21 Dose: Not Given Documented by: Levalbuterol HCl (Levalbuterol Hcl 1.25 Mg/3 Ml Neb) 1.25 mg INH Q6H [facility] Lorazepam (Lorazepam 2 Mg/Ml Sdv) 0.5 mg IV Q4H PRN PRN Reason: Nausea/Vomiting Methylprednisolone Sodium Succinate (Methylprednisolone Sodium Succinate 125 Mg/2 Ml Sdv) Confirm Administered Dose 125 mg .ROUTE .[facility] ONE Stop: 05/07/21 02:01 Last Admin: 05/07/21 03:30 Dose: Not Given Documented by: Methylprednisolone Sodium Succinate (Methylprednisolone Sodium Succinate 125 Mg/2 Ml Sdv) 125 mg IVPUSH Q6H [facility] Last Admin: 05/07/21 02:05 Dose: 125 mg Documented by: - Exam General: Alert, Oriented, Cooperative, Mild Distress Lungs: Clear to Auscultation (BUL), Decreased Breath Sounds (BLL). No: Normal Respiratory Effort (tachypneic), Crackles, Wheezing Cardiovascular: Regular Rate, Regular Rhythm GI/Abdominal Exam: Normal Bowel Sounds, Soft, Non-Tender, No Distention - Patient Data Lab Results Last 24 hrs: Laboratory Results - last 24 hr 05/11/21 05/12/21 05/12/21 Range/Units 06:20 06:30 06:30 WBC 14.0 H 8.2 (3.2-10.1) x10-3/uL RBC 3.86 L 3.84 L (3.90-5.90) x10(6)uL Hgb 12.3 L 12.5 L (12.9-17.7) g/dL Hct 36.1 L 35.2 L (38.3-50.1) % MCV 93.5 91.8 (80.8-98.7) fL MCH 31.7 32.7 (27.0-33.3) pg MCHC 33.9 35.6 H (28.7-35.3) g/dL RDW 12.4 12.6 (12.4-15.0) % Plt Count 258 262 (117-477) x10(3)uL MPV 6.7 6.7 (6.7-11.0) fL Add Manual Diff Yes Yes Neutrophils % (Manual) 83 H 89 H (46-82) % Band Neutrophils % 2 4 (0-6) % Lymphocytes % (Manual) 6 L 4 L (13-37) % Monocytes % (Manual) 7 (4-12) % Metamyelocytes % 1 H 2 H (0-0) % Myelocytes % 1 H 1 H (0-0) % Sodium 132 L (135-145) mmol/L Potassium 4.1 (3.5-5.3) mmol/L Chloride 100 (100-110) mmol/L Carbon Dioxide 21 (21-32) mmol/L BUN 22 H (7-18) mg/dL Creatinine 0.8 (0.70-1.30) mg/dL Est Cr Clr Drug Dosing 102.49 mL/min Estimated GFR (MDRD) > 60 (>60) BUN/Creatinine Ratio 27.5 H (9-20) Glucose 139 H (80-116) mg/dL Calcium 8.0 L (8.6-10.2) mg/dL Total Bilirubin 0.7 (0.1-1.3) mg/dL AST 46 H D (5-25) IU/L ALT 131 H D (12-36) U/L Alkaline Phosphatase 128 H (56-112) IU/L C-Reactive Protein (0.5-0.9) mg/dL Total Protein 5.7 L (6.0-8.0) g/dL Albumin 1.8 L (3.2-4.6) g/dL Globulin 3.9 g/dL Albumin/Globulin Ratio 0.5 05/12/ Range/Units 06:30 WBC (3.2-10.1) x10-3/uL RBC (3.90-5.90) x10(6)uL Hgb (12.9-17.7) g/dL Hct (38.3-50.1) % MCV (80.8-98.7) fL MCH (27.0-33.3) pg MCHC (28.7-35.3) g/dL RDW (12.4-15.0) % Plt Count (117-477) x10(3)uL MPV (6.7-11.0) fL Add Manual Diff Neutrophils % (Manual) (46-82) % Band Neutrophils % (0-6) % Lymphocytes % (Manual) (13-37) % Monocytes % (Manual) (4-12) % Metamyelocytes % (0-0) % Myelocytes % (0-0) % Sodium (135-145) mmol/L Potassium (3.5-5.3) mmol/L Chloride (100-110) mmol/L Carbon Dioxide (21-32) mmol/L BUN (7-18) mg/dL Creatinine (0.70-1.30) mg/dL Est Cr Clr Drug Dosing mL/min Estimated GFR (MDRD) (>60) BUN/Creatinine Ratio (9-20) Glucose (80-116) mg/dL Calcium (8.6-10.2) mg/dL Total Bilirubin (0.1-1.3) mg/dL AST (5-25) IU/L ALT (12-36) U/L Alkaline Phosphatase (56-112) IU/L C-Reactive Protein 15.1 H* (0.5-0.9) mg/dL Total Protein (6.0-8.0) g/dL Albumin (3.2-4.6) g/dL Globulin g/dL Albumin/Globulin Ratio Result Diagrams: 05/12/21 06:30 05/12/21 06:30 Sepsis Event Note - Evaluation Sepsis Screening Result: Sepsis Risk - Focused Exam Vital Signs: Vital Signs Temp Temp Pulse Resp BP Pulse Ox Pulse Ox 05/12/21 12:00 98.4 F 84 22 H 97 05/12/21 09:38 98 92 L 05/12/21 08:00 98.0 F 95 26 H 124/79 92 L 05/12/21 05:30 96.9 F 81 20 147/80 H 99 05/12/21 02:30 96.9 F 80 20 145/80 H 92 L - Problem List & Annotations (1) Pneumonia due to COVID-19 virus SNOMED Code(s): 269015598490116311 Code(s): U07.1 - COVID-19; J12.82 - PNEUMONIA DUE TO CORONAVIRUS DISEASE 2018 Status: Acute Current Visit: Yes Annotation/Comment:: worsening, back on O2 at 2L (2) Tachypnea SNOMED Code(s): 162592984 Code(s): R06.82 - TACHYPNEA, NOT ELSEWHERE CLASSIFIED Status: Acute Current Visit: Yes (3) Hyponatremia SNOMED Code(s): 61217877 Code(s): E87.1 - HYPO-OSMOLALITY AND HYPONATREMIA Status: Acute Current Visit: Yes Annotation/Comment:: dropped back to 132. (4) Asthma SNOMED Code(s): 676892169 Code(s): J45.909 - UNSPECIFIED ASTHMA, UNCOMPLICATED Status: Chronic Current Visit: Yes - Problem List Review Problem List Initiated/Reviewed/Updated: Yes - My Orders Last 24 Hours: My Active Orders 05/11/21 14:07 hydrOXYzine pamoate [Vistaril] 50 mg PO Q6H PRN 05/11/21 15:00 Enoxaparin [Lovenox] 40 mg SUBCUT Q12H methylPREDNISolone Sod Succ [Solu-MEDROL] 40 mg IVPUSH Q12H - Plan Plan:: 1. Covid pneumonia: stable on O2. WBC 8.2, neutrophils 89%, Doxycycline 100 mg IV bid day 4. Rocephin 2G IV q24h day 2. Budesonide 0.5 mg neb bid, Xopenex q6h as needed. Tylenol 500 mg po q6h as needed & Toradol 30 mg IV q6h as needed, Codeine/Phenergan as needed cough. Tessalon Perles as needed cough. SoluMedrol 40 mg IV bid, Lovenox 40 mg bid, & Vistaril as needed anxiety. CBC, CMP and CRP tomorrow. Prone position as infiltrates mainly in posterior lobes. 2. Hypoalbuminemia/protein malnutrition: Albumin 1.8 down from 05/06 2.5, has not been eating well for 3 weeks. Protein supplements, advised also to eat more protein for his meals. Does tolerate cheese & yogurt. 3. Hyponatremia: improved at 132, Recheck BMP tomorrow. 4. Discharge planning: Feels better today, but still requiring oxygen, will need more time, possibly end of the week. Adjust treatments as necessary.
[2021-05-12] MEDS: Montelukast 10 MG Tab PO SCH (19:59)
[2021-05-13] MEDS: Levalbuterol HCl 1.25 MG/3 ML Neb INH PRN ×3 (02:26→17:13)
[2021-05-13] MEDS: Enoxaparin 40 MG/0.4 ML Syringe SUBCUT SCH ×2 (02:33→20:09)
[2021-05-13] MEDS: Codeine/guaiFENesin 10-100 MG/5 ML Syrup 5 ML Cup PO PRN ×4 (02:34→21:16)
[2021-05-13] MEDS: methylPREDNISolone Sodium Succinate 40 MG/1 ML SDV IVPUSH SCH ×2 (02:34→20:09)
[2021-05-13] MEDS: Sodium Chloride 0.9% 10 ML Syringe FLUSH PRN ×3 (02:36→21:13)
[2021-05-13] MEDS: Zinc Sulfate 220 MG Cap PO SCH (08:08)
[2021-05-13] MEDS: Budesonide 0.5 MG/2 ML Neb Susp INH SCH ×2 (08:08→21:08)
[2021-05-13] MEDS: Cholecalciferol (Vitamin D3) 25 MCG Tab PO SCH (08:08)
[2021-05-13] MEDS: Doxycycline 100 MG in Sodium Chloride 0.9% 100 ML IV SCH ×2 (08:09→20:10)
[2021-05-13] MEDS: Polyethylene Glycol 3350 Powder 17 GM Packet PO SCH (08:09)
[2021-05-13] MEDS: Multivitamin Tab PO SCH (08:09)
[2021-05-13] MEDS: cefTRIAXone 2 GM Vial IVPUSH SCH (11:29)
[2021-05-13] MEDS: Benzonatate 100 MG Cap PO PRN ×2 (11:30→21:17)
--- NOTE | 2021-05-13 13:57 | PCM.PN ---
- General Info Date of Service: 05/13/21 Subjective Update: Prone position helped but didn't sleep well after 2am, had diarrhea after protein supplements so he is refusing. No nausea, vomiting. Oxygen 2L this morning. - Patient Data Vitals - Most Recent: Last Vital Signs Temp 98.1 F 05/13/21 12:00 Pulse 86 05/13/21 12:00 Resp 22 H 05/13/21 12:00 BP 147/80 H 05/13/21 12:00 Pulse Ox 94 L 05/13/21 12:00 Weight - Most Recent: 171 lb 4 oz I&O - Last 24 Hours: Intake & Output 05/12/21 05/13/21 05/13/21 22:59 06:59 14:59 Intake Total 100 100 Balance 100 100 Lab Results Last 24 Hours: Laboratory Results - last 24 hr 05/13/21 05/13/21 Range/Units 06:20 06:20 WBC 12.1 H (3.2-10.1) x10-3/uL RBC 3.66 L (3.90-5.90) x10(6)uL Hgb 11.7 L (12.9-17.7) g/dL Hct 34.1 L (38.3-50.1) % MCV 93.2 (80.8-98.7) fL MCH 32.0 (27.0-33.3) pg MCHC 34.4 (28.7-35.3) g/dL RDW 12.7 (12.4-15.0) % Plt Count 259 (117-477) x10(3)uL MPV 6.3 L (6.7-11.0) fL Add Manual Diff Yes Neutrophils % (Manual) 88 H (46-82) % Band Neutrophils % 2 (0-6) % Lymphocytes % (Manual) 2 L (13-37) % Monocytes % (Manual) 3 L (4-12) % Metamyelocytes % 3 H (0-0) % Myelocytes % 2 H (0-0) % Hypersegmented Neuts Moderate Sodium 130 L (135-145) mmol/L Potassium 3.8 (3.5-5.3) mmol/L Chloride 99 L (100-110) mmol/L Carbon Dioxide 22 (21-32) mmol/L BUN 19 H (7-18) mg/dL Creatinine 0.9 (0.70-1.30) mg/dL Est Cr Clr Drug Dosing 91.10 mL/min Estimated GFR (MDRD) > 60 (>60) BUN/Creatinine Ratio 21.1 H (9-20) Glucose 165 H (80-116) mg/dL Calcium 8.1 L (8.6-10.2) mg/dL Total Bilirubin 0.7 (0.1-1.3) mg/dL AST 27 H D (5-25) IU/L ALT 93 H D (12-36) U/L Alkaline Phosphatase 109 (56-112) IU/L Total Protein 5.7 L (6.0-8.0) g/dL Albumin 1.9 L (3.2-4.6) g/dL Globulin 3.8 g/dL Albumin/Globulin Ratio 0.5 Med Orders - Current: Current Medications Acetaminophen (Acetaminophen 500 Mg Tab) 500 mg PO Q6H PRN PRN Reason: Pain/Fever Benzonatate (Benzonatate 100 Mg Cap) 200 mg PO TID PRN PRN Reason: Cough Last Admin: 05/13/21 11:30 Dose: 200 mg Documented by: Budesonide (Budesonide 0.5 Mg/2 Ml Neb Susp) 0.5 mg INH BID@0800,2100 [facility] Last Admin: 05/13/21 08:08 Dose: 0.5 mg Documented by: Ceftriaxone Sodium (Ceftriaxone 2 Gm Vial) 2 gm IVPUSH Q24H [facility] Last Admin: 05/13/21 11:29 Dose: 2 gm Documented by: Cholecalciferol (Cholecalciferol (Vitamin D3) 25 Mcg Tab) 125 mcg PO DAILY@0800 [facility] Last Admin: 05/13/21 08:08 Dose: 125 mcg Documented by: Enoxaparin Sodium (Enoxaparin 40 Mg/0.4 Ml Syringe) 40 mg SUBCUT Q12H [facility] Guaifenesin/Codeine Phosphate (Codeine/Guaifenesin 10-100 Mg/5 Ml Syrup 5 Ml Cup) 10 ml PO Q4H PRN PRN Reason: Cough Last Admin: 05/13/21 11:29 Dose: 10 ml Documented by: Hydroxyzine Pamoate (Hydroxyzine Pamoate 50 Mg Cap) 50 mg PO Q6H PRN PRN Reason: Anxiety Last Admin: 05/13/21 11:30 Dose: 50 mg Documented by: Doxycycline Hyclate 100 mg/ (Sodium Chloride) 100 mls @ 100 mls/hr IV Q12H [facility] Last Admin: 05/13/21 08:09 Dose: 100 mls/hr Documented by: Levalbuterol HCl (Levalbuterol Hcl 1.25 Mg/3 Ml Neb) 1.25 mg INH Q6H PRN PRN Reason: Shortness of Breath Last Admin: 05/13/21 11:28 Dose: 1.25 mg Documented by: Lorazepam (Lorazepam 0.5 Mg Tab) 0.5 mg PO Q4H PRN PRN Reason: Anxiety Magnesium Hydroxide (Magnesium Hydroxide 400 Mg/5 Ml Susp 30 Ml Cup) 30 ml PO Q12H PRN PRN Reason: Constipation Methylprednisolone Sodium Succinate (Methylprednisolone Sodium Succinate 40 Mg/1 Ml Sdv) 40 mg IVPUSH Q12H [facility] Montelukast Sodium (Montelukast 10 Mg Tab) 10 mg PO BEDTIME [facility] Last Admin: 05/12/21 19:59 Dose: 10 mg Documented by: Multivitamins/Minerals/Vitamin C (Multivitamin Tab) 1 tab PO DAILY@0800 [facility] Last Admin: 05/13/21 08:09 Dose: 1 tab Documented by: Ivermectin 3mg 0 each PO DAILY [facility] Stop: 05/15/21 09:01 Polyethylene Glycol (Polyethylene Glycol 3350 Powder 17 Gm Packet) 17 gm PO DAILY [facility] Last Admin: 05/13/21 08:09 Dose: Not Given Documented by: Sodium Chloride (Sodium Chloride 0.9% 10 Ml Syringe) 10 ml FLUSH ASDIRECTED PRN PRN Reason: Keep Vein Open Last Admin: 05/13/21 11:34 Dose: 10 ml Documented by: Zinc Sulfate (Zinc Sulfate 220 Mg Cap) 220 mg PO DAILY@0800 [facility] Last Admin: 05/13/21 08:08 Dose: 220 mg Documented by: Discontinued Medications Acetaminophen (Acetaminophen 500 Mg Tab) 1,000 mg PO ONETIME ONE Stop: 05/06/21 22:04 Last Admin: 05/06/21 23:05 Dose: 1,000 mg Documented by: Acetaminophen (Acetaminophen 500 Mg Tab) 1,000 mg PO Q6H [facility] Acetaminophen (Acetaminophen 500 Mg Tab) 500 mg PO Q6H [facility] Last Admin: 05/09/21 19:44 Dose: Not Given Documented by: Albuterol (Albuterol 0.083% 2.5 Mg/3 Ml Neb Soln) 2.5 mg NEB Q6H [facility] Last Admin: 05/07/21 03:31 Dose: Not Given Documented by: Albuterol (Albuterol 0.083% 2.5 Mg/3 Ml Neb Soln) 2.5 mg NEB Q6H [facility] Last Admin: 05/07/21 05:09 Dose: 2.5 mg Documented by: Albuterol/Ipratropium (Albuterol/Ipratropium 3.0-0.5 Mg/3 Ml Neb Soln) 3 ml NEB ONETIME ONE Stop: 05/06/21 23:10 Last Admin: 05/07/21 00:30 Dose: 3 ml Documented by: Albuterol/Ipratropium (Albuterol/Ipratropium 3.0-0.5 Mg/3 Ml Neb Soln) 3 ml INH Q6H [facility] Last Admin: 05/07/21 08:26 Dose: 3 ml Documented by: Albuterol/Ipratropium (Albuterol/Ipratropium 3.0-0.5 Mg/3 Ml Neb Soln) 3 ml NEB ONETIME ONE Stop: 05/07/21 01:56 Last Admin: 05/07/21 02:05 Dose: 3 ml Documented by: Dexamethasone (Dexamethasone 4 Mg/Ml Sdv) 6 mg IVPUSH DAILY@0800 [facility] Last Admin: 05/11/21 08:08 Dose: 6 mg Documented by: Enoxaparin Sodium (Enoxaparin 40 Mg/0.4 Ml Syringe) 40 mg SUBCUT Q24H [facility] Last Admin: 05/07/21 03:22 Dose: 40 mg Documented by: Enoxaparin Sodium (Enoxaparin 40 Mg/0.4 Ml Syringe) 40 mg SUBCUT Q24H [facility] Last Admin: 05/11/21 08:20 Dose: 40 mg Documented by: Enoxaparin Sodium (Enoxaparin 40 Mg/0.4 Ml Syringe) 40 mg SUBCUT Q12H [facility] Last Admin: 05/13/21 02:33 Dose: 40 mg Documented by: Guaifenesin/Phenylephrine HCl (Guaifenesin/Dextromethorphan 100-10 Mg/5 Ml Soln 5 Ml Cup) 10 ml PO Q4H PRN PRN Reason: Cough Last Admin: 05/09/21 22:06 Dose: 10 ml Documented by: Sodium Chloride (Normal Saline) 1,000 mls @ 999 mls/hr IV .BOLUS ONE Stop: 05/06/21 22:56 Last Admin: 05/06/21 23:05 Dose: 999 mls/hr Documented by: Sodium Chloride (Normal Saline) 1,000 mls @ 999 mls/hr IV .BOLUS ONE Stop: 05/06/21 23:56 Last Admin: 05/07/21 00:40 Dose: 999 mls/hr Documented by: Methylprednisolone Sodium Succinate 125 mg/ Sodium Chloride 102 mls @ 102 mls/hr IV Q6H [facility] Last Admin: 05/07/21 03:21 Dose: Not Given Documented by: Potassium Chloride/Sodium Chloride (1/2 Ns With 20 Meq Kcl) 1,000 mls @ 50 mls/hr IV ASDIRECTED [facility] Last Admin: 05/07/21 03:07 Dose: 50 mls/hr Documented by: Sodium Chloride (Normal Saline) 1,000 mls @ 50 mls/hr IV ASDIRECTED [facility] Last Admin: 05/07/21 16:19 Dose: 50 mls/hr Documented by: Iopamidol (Iopamidol 755 Mg/Ml 75 Ml Bottle) 65 ml IV ONETIME ONE Stop: 05/06/21 23:48 Last Admin: 05/07/21 00:12 Dose: 65 ml Documented by: Iopamidol (Iopamidol 755 Mg/Ml 100 Ml Bottle) 100 ml IV . DIRECTED ONE Stop: 05/11/21 10:59 Last Admin: 05/11/21 12:06 Dose: 90 ml Documented by: Ketorolac Tromethamine (Ketorolac 30 Mg/Ml Sdv) 30 mg IVPUSH ONETIME ONE Stop: 05/06/21 22:03 Last Admin: 05/06/21 23:05 Dose: 30 mg Documented by: Ketorolac Tromethamine (Ketorolac 30 Mg/Ml Sdv) 30 mg IVPUSH Q6H [facility] Last Admin: 05/07/21 03:31 Dose: Not Given Documented by: Ketorolac Tromethamine (Ketorolac 30 Mg/Ml Sdv) 30 mg IVPUSH Q6H [facility] Last Admin: 05/07/21 05:08 Dose: 30 mg Documented by: Ketorolac Tromethamine (Ketorolac 30 Mg/Ml Sdv) 30 mg IVPUSH Q6H [facility] Last Admin: 05/09/21 00:21 Dose: Not Given Documented by: Ketorolac Tromethamine (Ketorolac 30 Mg/Ml Sdv) 30 mg IVPUSH Q6H PRN PRN Reason: pain/fever Last Admin: 05/09/21 08:47 Dose: 30 mg Documented by: Levalbuterol HCl (Levalbuterol Hcl 1.25 Mg/3 Ml Neb) 1.25 mg INH Q6H [facility] Lorazepam (Lorazepam 2 Mg/Ml Sdv) 0.5 mg IV Q4H PRN PRN Reason: Nausea/Vomiting Methylprednisolone Sodium Succinate (Methylprednisolone Sodium Succinate 125 Mg/2 Ml Sdv) Confirm Administered Dose 125 mg .ROUTE .[facility] Stop: 05/07/21 02:01 Last Admin: 05/07/21 03:30 Dose: Not Given Documented by: Methylprednisolone Sodium Succinate (Methylprednisolone Sodium Succinate 125 Mg/2 Ml Sdv) 125 mg IVPUSH Q6H [facility] Last Admin: 05/07/21 02:05 Dose: 125 mg Documented by: Methylprednisolone Sodium Succinate (Methylprednisolone Sodium Succinate 40 Mg/1 Ml Sdv) 40 mg IVPUSH Q12H [facility] Last Admin: 05/13/21 02:34 Dose: 40 mg Documented by: - Exam Quality Assessment: Supplemental Oxygen General: Alert, Oriented, Cooperative, Mild Distress Lungs: Clear to Auscultation, Decreased Breath Sounds, Crackles (fine, bilateral posterior lobes). No: Normal Respiratory Effort (increased), Wheezing Cardiovascular: Regular Rate, Regular Rhythm GI/Abdominal Exam: Normal Bowel Sounds, Soft, Non-Tender, No Distention Extremities: No Pedal Edema, Normal Capillary Refill Peripheral Pulses: 2+: Radial (L), Radial (R), Posterior Tibial (L), Posterior Tibial (R), Dorsalis Pedis (L), Dorsalis Pedis (R) Skin: Warm, Dry, Intact - Patient Data Lab Results Last 24 hrs: Laboratory Results - last 24 hr 05/13/21 05/13/21 Range/Units 06:20 06:20 WBC 12.1 H (3.2-10.1) x10-3/uL RBC 3.66 L (3.90-5.90) x10(6)uL Hgb 11.7 L (12.9-17.7) g/dL Hct 34.1 L (38.3-50.1) % MCV 93.2 (80.8-98.7) fL MCH 32.0 (27.0-33.3) pg MCHC 34.4 (28.7-35.3) g/dL RDW 12.7 (12.4-15.0) % Plt Count 259 (117-477) x10(3)uL MPV 6.3 L (6.7-11.0) fL Add Manual Diff Yes Neutrophils % (Manual) 88 H (46-82) % Band Neutrophils % 2 (0-6) % Lymphocytes % (Manual) 2 L (13-37) % Monocytes % (Manual) 3 L (4-12) % Metamyelocytes % 3 H (0-0) % Myelocytes % 2 H (0-0) % Hypersegmented Neuts Moderate Sodium 130 L (135-145) mmol/L Potassium 3.8 (3.5-5.3) mmol/L Chloride 99 L (100-110) mmol/L Carbon Dioxide 22 (21-32) mmol/L BUN 19 H (7-18) mg/dL Creatinine 0.9 (0.70-1.30) mg/dL Est Cr Clr Drug Dosing 91.10 mL/min Estimated GFR (MDRD) > 60 (>60) BUN/Creatinine Ratio 21.1 H (9-20) Glucose 165 H (80-116) mg/dL Calcium 8.1 L (8.6-10.2) mg/dL Total Bilirubin 0.7 (0.1-1.3) mg/dL AST 27 H D (5-25) IU/L ALT 93 H D (12-36) U/L Alkaline Phosphatase 109 (56-112) IU/L Total Protein 5.7 L (6.0-8.0) g/dL Albumin 1.9 L (3.2-4.6) g/dL Globulin 3.8 g/dL Albumin/Globulin Ratio 0.5 Result Diagrams: 05/13/21 06:20 05/13/21 06:20 Sepsis Event Note - Evaluation Sepsis Screening Result: No Definite Risk - Focused Exam Vital Signs: Vital Signs Temp Pulse Resp BP Pulse Ox Pulse Ox 05/13/21 12:00 98.1 F 86 22 H 147/80 H 94 L 05/13/21 09:00 100 05/13/21 08:00 97.9 F 80 22 H 151/82 H 97 05/13/21 04:00 22 H 97 - Problem List & Annotations (1) Pneumonia due to COVID-19 virus SNOMED Code(s): 400818639694795234 Code(s): U07.1 - COVID-19; J12.82 - PNEUMONIA DUE TO CORONAVIRUS DISEASE 2018 Status: Acute Current Visit: Yes Annotation/Comment:: stable, on O2 at 2L (2) Tachypnea SNOMED Code(s): 392274664 Code(s): R06.82 - TACHYPNEA, NOT ELSEWHERE CLASSIFIED Status: Acute Current Visit: Yes Annotation/Comment:: still RR at 22 (3) Hyponatremia SNOMED Code(s): 83746948 Code(s): E87.1 - HYPO-OSMOLALITY AND HYPONATREMIA Status: Acute Current Visit: Yes Annotation/Comment:: dropped back to 130. (4) Asthma SNOMED Code(s): 208187947 Code(s): J45.909 - UNSPECIFIED ASTHMA, UNCOMPLICATED Status: Chronic Current Visit: Yes - Problem List Review Problem List Initiated/Reviewed/Updated: Yes - My Orders Last 24 Hours: My Active Orders 05/12/21 13:39 Dietary Supplements [RC] TIDAC 05/13/21 14:00 Non-Formulary Medication [NF Drug] 0 each PO DAILY 05/13/21 20:00 Enoxaparin [Lovenox] 40 mg SUBCUT Q12H methylPREDNISolone Sod Succ [Solu-MEDROL] 40 mg IVPUSH Q12H 05/14/21 06:00 CBC WITH AUTO DIFF [HEME] Routine COMPREHENSIVE METABOLIC PN,CMP [CHEM] Routine - Plan Plan:: 1. Covid pneumonia: stable on O2. WBC 12.1, neutrophils 88%, Doxycycline 100 mg IV bid day 5. Rocephin 2G IV q24h day 3. Budesonide 0.5 mg neb bid, Xopenex q6h as needed. Tylenol 500 mg po q6h as needed, Codeine/Phenergan as needed cough. Tessalon Perles as needed cough. SoluMedrol 40 mg IV bid, Lovenox 40 mg bid, & Vistaril as needed anxiety. CBC, CMP and CRP tomorrow. Prone position as infiltrates mainly in posterior lobes. 2. Hypoalbuminemia/protein malnutrition: Did not tolerate lactose-free protein supplements, have him order more protein for his meals. Does tolerate cheese & yogurt. 3. Hyponatremia: dropped to 130, Recheck BMP tomorrow. 4. Discharge planning: Adjust treatments as necessary, condition is fluctuating daily.
[2021-05-13] MEDS: IVERMECTIN 3 MG PO SCH (14:24)
[2021-05-13] MEDS: Montelukast 10 MG Tab PO SCH (21:14)
[2021-05-14] MEDS: Budesonide 0.5 MG/2 ML Neb Susp INH SCH ×2 (09:01→20:11)
[2021-05-14] MEDS: Enoxaparin 40 MG/0.4 ML Syringe SUBCUT SCH ×2 (09:01→20:10)
[2021-05-14] MEDS: Multivitamin Tab PO SCH (09:02)
[2021-05-14] MEDS: Cholecalciferol (Vitamin D3) 25 MCG Tab PO SCH (09:02)
[2021-05-14] MEDS: Zinc Sulfate 220 MG Cap PO SCH (09:03)
[2021-05-14] MEDS: Polyethylene Glycol 3350 Powder 17 GM Packet PO SCH (09:03)
[2021-05-14] MEDS: IVERMECTIN 3 MG PO SCH (09:04)
[2021-05-14] MEDS: Doxycycline 100 MG in Sodium Chloride 0.9% 100 ML IV SCH (09:05)
[2021-05-14] MEDS: cefTRIAXone 2 GM Vial IVPUSH SCH (10:01)
[2021-05-14] MEDS: methylPREDNISolone Sodium Succinate 40 MG/1 ML SDV IVPUSH SCH ×2 (10:01→20:10)
--- NOTE | 2021-05-14 10:38 | PCM.PN ---
- General Info Date of Service: 05/14/21 Subjective Update: Liang states his coughing is better today, when he gets up to the bathroom he hasn't had the coughing spells he was. 90% on 1L this morning. States he hasn't been drinking much for water so I encouraged him to get more in today. NO diarrhea. - Patient Data Vitals - Most Recent: Last Vital Signs Temp 98.9 F 05/14/21 05:30 Pulse 78 05/14/21 05:30 Resp 22 H 05/14/21 05:30 BP 126/62 05/14/21 05:30 Pulse Ox 90 L 05/14/21 05:30 Weight - Most Recent: 171 lb 4 oz I&O - Last 24 Hours: Intake & Output 05/13/21 05/14/21 05/14/21 22:59 06:59 14:59 Intake Total 80 Balance 80 Lab Results Last 24 Hours: Laboratory Results - last 24 hr 05/14/21 05/14/21 Range/Units 06:55 06:55 WBC 8.8 (3.2-10.1) x10-3/uL RBC 3.70 L (3.90-5.90) x10(6)uL Hgb 11.9 L (12.9-17.7) g/dL Hct 34.1 L (38.3-50.1) % MCV 92.0 (80.8-98.7) fL MCH 32.2 (27.0-33.3) pg MCHC 34.9 (28.7-35.3) g/dL RDW 12.9 (12.4-15.0) % Plt Count 228 (117-477) x10(3)uL MPV 6.2 L (6.7-11.0) fL Add Manual Diff Yes Neutrophils % (Manual) 83 H (46-82) % Band Neutrophils % 4 (0-6) % Lymphocytes % (Manual) 8 L (13-37) % Monocytes % (Manual) 5 (4-12) % Sodium 132 L (135-145) mmol/L Potassium 4.2 (3.5-5.3) mmol/L Chloride 100 (100-110) mmol/L Carbon Dioxide 23 (21-32) mmol/L BUN 19 H (7-18) mg/dL Creatinine 0.8 (0.70-1.30) mg/dL Est Cr Clr Drug Dosing 102.49 mL/min Estimated GFR (MDRD) > 60 (>60) BUN/Creatinine Ratio 23.8 H (9-20) Glucose 121 H (80-116) mg/dL Calcium 8.1 L (8.6-10.2) mg/dL Total Bilirubin 0.7 (0.1-1.3) mg/dL AST 34 H D (5-25) IU/L ALT 79 H D (12-36) U/L Alkaline Phosphatase 105 (56-112) IU/L Total Protein 5.5 L (6.0-8.0) g/dL Albumin 1.8 L (3.2-4.6) g/dL Globulin 3.7 g/dL Albumin/Globulin Ratio 0.5 Med Orders - Current: Current Medications Acetaminophen (Acetaminophen 500 Mg Tab) 500 mg PO Q6H PRN PRN Reason: Pain/Fever Last Admin: 05/13/21 21:18 Dose: 500 mg Documented by: Benzonatate (Benzonatate 100 Mg Cap) 200 mg PO TID PRN PRN Reason: Cough Last Admin: 05/13/21 21:17 Dose: 200 mg Documented by: Budesonide (Budesonide 0.5 Mg/2 Ml Neb Susp) 0.5 mg INH BID@0800,2100 [facility] Last Admin: 05/14/21 09:01 Dose: 0.5 mg Documented by: Ceftriaxone Sodium (Ceftriaxone 2 Gm Vial) 2 gm IVPUSH Q24H [facility] Last Admin: 05/14/21 10:01 Dose: 2 gm Documented by: Cholecalciferol (Cholecalciferol (Vitamin D3) 25 Mcg Tab) 125 mcg PO DAILY@0800 [facility] Last Admin: 05/14/21 09:02 Dose: 125 mcg Documented by: Doxycycline Hyclate (Doxycycline 100 Mg Tab) 100 mg PO BID@0800,2000 [facility] Stop: 05/18/21 20:01 Enoxaparin Sodium (Enoxaparin 40 Mg/0.4 Ml Syringe) 40 mg SUBCUT Q12H [facility] Last Admin: 05/14/21 09:01 Dose: 40 mg Documented by: Guaifenesin/Codeine Phosphate (Codeine/Guaifenesin 10-100 Mg/5 Ml Syrup 5 Ml Cup) 10 ml PO Q4H PRN PRN Reason: Cough Last Admin: 05/13/21 21:16 Dose: 10 ml Documented by: Hydroxyzine Pamoate (Hydroxyzine Pamoate 50 Mg Cap) 50 mg PO Q6H PRN PRN Reason: Anxiety Last Admin: 05/13/21 21:19 Dose: 50 mg Documented by: Levalbuterol HCl (Levalbuterol Hcl 1.25 Mg/3 Ml Neb) 1.25 mg INH Q6H PRN PRN Reason: Shortness of Breath Last Admin: 05/13/21 17:13 Dose: 1.25 mg Documented by: Lorazepam (Lorazepam 0.5 Mg Tab) 0.5 mg PO Q4H PRN PRN Reason: Anxiety Magnesium Hydroxide (Magnesium Hydroxide 400 Mg/5 Ml Susp 30 Ml Cup) 30 ml PO Q12H PRN PRN Reason: Constipation Methylprednisolone Sodium Succinate (Methylprednisolone Sodium Succinate 40 Mg/1 Ml Sdv) 40 mg IVPUSH Q12H [facility] Stop: 05/16/21 08:01 Last Admin: 05/14/21 10:01 Dose: 40 mg Documented by: Montelukast Sodium (Montelukast 10 Mg Tab) 10 mg PO BEDTIME [facility] Last Admin: 05/13/21 21:14 Dose: 10 mg Documented by: Multivitamins/Minerals/Vitamin C (Multivitamin Tab) 1 tab PO DAILY@1200 [facility] Ivermectin 3mg 0 each PO DAILY [facility] Stop: 05/15/21 09:01 Last Admin: 05/14/21 09:04 Dose: 1 each Documented by: Polyethylene Glycol (Polyethylene Glycol 3350 Powder 17 Gm Packet) 17 gm PO DAILY [facility] Last Admin: 05/14/21 09:03 Dose: 17 gm Documented by: Sodium Chloride (Sodium Chloride 0.9% 10 Ml Syringe) 10 ml FLUSH ASDIRECTED PRN PRN Reason: Keep Vein Open Last Admin: 05/13/21 21:13 Dose: 10 ml Documented by: Zinc Sulfate (Zinc Sulfate 220 Mg Cap) 220 mg PO DAILY@1200 [facility] Discontinued Medications Acetaminophen (Acetaminophen 500 Mg Tab) 1,000 mg PO ONETIME ONE Stop: 05/06/21 22:04 Last Admin: 05/06/21 23:05 Dose: 1,000 mg Documented by: Acetaminophen (Acetaminophen 500 Mg Tab) 1,000 mg PO Q6H [facility] Acetaminophen (Acetaminophen 500 Mg Tab) 500 mg PO Q6H [facility] Last Admin: 05/09/21 19:44 Dose: Not Given Documented by: Albuterol (Albuterol 0.083% 2.5 Mg/3 Ml Neb Soln) 2.5 mg NEB Q6H [facility] Last Admin: 05/07/21 03:31 Dose: Not Given Documented by: Albuterol (Albuterol 0.083% 2.5 Mg/3 Ml Neb Soln) 2.5 mg NEB Q6H [facility] Last Admin: 05/07/21 05:09 Dose: 2.5 mg Documented by: Albuterol/Ipratropium (Albuterol/Ipratropium 3.0-0.5 Mg/3 Ml Neb Soln) 3 ml NEB ONETIME ONE Stop: 05/06/21 23:10 Last Admin: 05/07/21 00:30 Dose: 3 ml Documented by: Albuterol/Ipratropium (Albuterol/Ipratropium 3.0-0.5 Mg/3 Ml Neb Soln) 3 ml INH Q6H [facility] Last Admin: 05/07/21 08:26 Dose: 3 ml Documented by: Albuterol/Ipratropium (Albuterol/Ipratropium 3.0-0.5 Mg/3 Ml Neb Soln) 3 ml NEB ONETIME ONE Stop: 05/07/21 01:56 Last Admin: 05/07/21 02:05 Dose: 3 ml Documented by: Dexamethasone (Dexamethasone 4 Mg/Ml Sdv) 6 mg IVPUSH DAILY@0800 [facility] Last Admin: 05/11/21 08:08 Dose: 6 mg Documented by: Enoxaparin Sodium (Enoxaparin 40 Mg/0.4 Ml Syringe) 40 mg SUBCUT Q24H [facility] Last Admin: 05/07/21 03:22 Dose: 40 mg Documented by: Enoxaparin Sodium (Enoxaparin 40 Mg/0.4 Ml Syringe) 40 mg SUBCUT Q24H [facility] Last Admin: 05/11/21 08:20 Dose: 40 mg Documented by: Enoxaparin Sodium (Enoxaparin 40 Mg/0.4 Ml Syringe) 40 mg SUBCUT Q12H [facility] Last Admin: 05/13/21 02:33 Dose: 40 mg Documented by: Guaifenesin/Phenylephrine HCl (Guaifenesin/Dextromethorphan 100-10 Mg/5 Ml Soln 5 Ml Cup) 10 ml PO Q4H PRN PRN Reason: Cough Last Admin: 05/09/21 22:06 Dose: 10 ml Documented by: Sodium Chloride (Normal Saline) 1,000 mls @ 999 mls/hr IV .BOLUS ONE Stop: 05/06/21 22:56 Last Admin: 05/06/21 23:05 Dose: 999 mls/hr Documented by: Sodium Chloride (Normal Saline) 1,000 mls @ 999 mls/hr IV .BOLUS ONE Stop: 05/06/21 23:56 Last Admin: 05/07/21 00:40 Dose: 999 mls/hr Documented by: Methylprednisolone Sodium Succinate 125 mg/ Sodium Chloride 102 mls @ 102 mls/hr IV Q6H [facility] Last Admin: 05/07/21 03:21 Dose: Not Given Documented by: Potassium Chloride/Sodium Chloride (1/2 Ns With 20 Meq Kcl) 1,000 mls @ 50 mls/hr IV ASDIRECTED [facility] Last Admin: 05/07/21 03:07 Dose: 50 mls/hr Documented by: Sodium Chloride (Normal Saline) 1,000 mls @ 50 mls/hr IV ASDIRECTED [facility] Last Admin: 05/07/21 16:19 Dose: 50 mls/hr Documented by: Doxycycline Hyclate 100 mg/ (Sodium Chloride) 100 mls @ 100 mls/hr IV Q12H [facility] Stop: 05/18/21 20:59 Last Admin: 05/14/21 09:05 Dose: 100 mls/hr Documented by: Iopamidol (Iopamidol 755 Mg/Ml 75 Ml Bottle) 65 ml IV ONETIME ONE Stop: 05/06/21 23:48 Last Admin: 05/07/21 00:12 Dose: 65 ml Documented by: Iopamidol (Iopamidol 755 Mg/Ml 100 Ml Bottle) 100 ml IV . DIRECTED ONE Stop: 05/11/21 10:59 Last Admin: 05/11/21 12:06 Dose: 90 ml Documented by: Ketorolac Tromethamine (Ketorolac 30 Mg/Ml Sdv) 30 mg IVPUSH ONETIME ONE Stop: 05/06/21 22:03 Last Admin: 05/06/21 23:05 Dose: 30 mg Documented by: Ketorolac Tromethamine (Ketorolac 30 Mg/Ml Sdv) 30 mg IVPUSH Q6H [facility] Last Admin: 05/07/21 03:31 Dose: Not Given Documented by: Ketorolac Tromethamine (Ketorolac 30 Mg/Ml Sdv) 30 mg IVPUSH Q6H [facility] Last Admin: 05/07/21 05:08 Dose: 30 mg Documented by: Ketorolac Tromethamine (Ketorolac 30 Mg/Ml Sdv) 30 mg IVPUSH Q6H [facility] Last Admin: 05/09/21 00:21 Dose: Not Given Documented by: Ketorolac Tromethamine (Ketorolac 30 Mg/Ml Sdv) 30 mg IVPUSH Q6H PRN PRN Reason: pain/fever Last Admin: 05/09/21 08:47 Dose: 30 mg Documented by: Levalbuterol HCl (Levalbuterol Hcl 1.25 Mg/3 Ml Neb) 1.25 mg INH Q6H [facility] Lorazepam (Lorazepam 2 Mg/Ml Sdv) 0.5 mg IV Q4H PRN PRN Reason: Nausea/Vomiting Methylprednisolone Sodium Succinate (Methylprednisolone Sodium Succinate 125 Mg/2 Ml Sdv) Confirm Administered Dose 125 mg .ROUTE .STK-MED ONE Stop: 05/07/21 02:01 Last Admin: 05/07/21 03:30 Dose: Not Given Documented by: Methylprednisolone Sodium Succinate (Methylprednisolone Sodium Succinate 125 Mg/2 Ml Sdv) 125 mg IVPUSH Q6H [facility] Last Admin: 05/07/21 02:05 Dose: 125 mg Documented by: Methylprednisolone Sodium Succinate (Methylprednisolone Sodium Succinate 40 Mg/1 Ml Sdv) 40 mg IVPUSH Q12H [facility] Last Admin: 05/13/21 02:34 Dose: 40 mg Documented by: Multivitamins/Minerals/Vitamin C (Multivitamin Tab) 1 tab PO DAILY@0800 [facility] Last Admin: 05/14/21 09:02 Dose: 1 tab Documented by: Zinc Sulfate (Zinc Sulfate 220 Mg Cap) 220 mg PO DAILY@0800 [facility] Last Admin: 05/14/21 09:03 Dose: 220 mg Documented by: - Exam Quality Assessment: Supplemental Oxygen General: Alert, Oriented, Cooperative, No Acute Distress Lungs: Clear to Auscultation (BUL), Normal Respiratory Effort, Decreased Breath Sounds (bibasilar, improved air entry), Crackles (BLL). No: Wheezing Cardiovascular: Regular Rate, Regular Rhythm GI/Abdominal Exam: Normal Bowel Sounds, Soft, Non-Tender, No Distention Extremities: No Pedal Edema - Patient Data Lab Results Last 24 hrs: Laboratory Results - last 24 hr 05/14/21 05/14/21 Range/Units 06:55 06:55 WBC 8.8 (3.2-10.1) x10-3/uL RBC 3.70 L (3.90-5.90) x10(6)uL Hgb 11.9 L (12.9-17.7) g/dL Hct 34.1 L (38.3-50.1) % MCV 92.0 (80.8-98.7) fL MCH 32.2 (27.0-33.3) pg MCHC 34.9 (28.7-35.3) g/dL RDW 12.9 (12.4-15.0) % Plt Count 228 (117-477) x10(3)uL MPV 6.2 L (6.7-11.0) fL Add Manual Diff Yes Neutrophils % (Manual) 83 H (46-82) % Band Neutrophils % 4 (0-6) % Lymphocytes % (Manual) 8 L (13-37) % Monocytes % (Manual) 5 (4-12) % Sodium 132 L (135-145) mmol/L Potassium 4.2 (3.5-5.3) mmol/L Chloride 100 (100-110) mmol/L Carbon Dioxide 23 (21-32) mmol/L BUN 19 H (7-18) mg/dL Creatinine 0.8 (0.70-1.30) mg/dL Est Cr Clr Drug Dosing 102.49 mL/min Estimated GFR (MDRD) > 60 (>60) BUN/Creatinine Ratio 23.8 H (9-20) Glucose 121 H (80-116) mg/dL Calcium 8.1 L (8.6-10.2) mg/dL Total Bilirubin 0.7 (0.1-1.3) mg/dL AST 34 H D (5-25) IU/L ALT 79 H D (12-36) U/L Alkaline Phosphatase 105 (56-112) IU/L Total Protein 5.5 L (6.0-8.0) g/dL Albumin 1.8 L (3.2-4.6) g/dL Globulin 3.7 g/dL Albumin/Globulin Ratio 0.5 Result Diagrams: 05/14/21 06:55 05/14/21 06:55 Sepsis Event Note - Evaluation Sepsis Screening Result: No Definite Risk - Focused Exam Vital Signs: Vital Signs Temp Pulse Resp BP Pulse Ox 05/14/21 05:30 98.9 F 78 22 H 126/62 90 L 05/14/21 00:00 22 H - Problem List & Annotations (1) Pneumonia due to COVID-19 virus SNOMED Code(s): 893991701122138997 Code(s): U07.1 - COVID-19; J12.82 - PNEUMONIA DUE TO CORONAVIRUS DISEASE 2018 Status: Acute Current Visit: Yes Annotation/Comment:: stable, on O2 at 2L (2) Tachypnea SNOMED Code(s): 715847955 Code(s): R06.82 - TACHYPNEA, NOT ELSEWHERE CLASSIFIED Status: Acute Current Visit: Yes Annotation/Comment:: RR at 22-24 (3) Hyponatremia SNOMED Code(s): 62263595 Code(s): E87.1 - HYPO-OSMOLALITY AND HYPONATREMIA Status: Acute Current Visit: Yes Annotation/Comment:: up to 132. (4) Asthma SNOMED Code(s): 789787508 Code(s): J45.909 - UNSPECIFIED ASTHMA, UNCOMPLICATED Status: Chronic Current Visit: Yes - Problem List Review Problem List Initiated/Reviewed/Updated: Yes - My Orders Last 24 Hours: My Active Orders 05/13/21 14:00 Non-Formulary Medication [NF Drug] 0 each PO DAILY 05/13/21 20:00 Enoxaparin [Lovenox] 40 mg SUBCUT Q12H methylPREDNISolone Sod Succ [Solu-MEDROL] 40 mg IVPUSH Q12H 05/14/21 20:00 Doxycycline [Vibra-Tabs] 100 mg PO BID@0800,199905/15/21 06:00 CBC WITH AUTO DIFF [HEME] Routine COMPREHENSIVE METABOLIC PN,CMP [CHEM] Routine INR,PT,PROTHROMBIN TIME [COAG] Routine PTT,PARTIAL THROMBOPLSTIN TIME [COAG] Routine 05/15/21 12:00 Zinc Sulfate [Zincate] 220 mg PO DAILY@1200 - Plan Plan:: 1. Covid pneumonia: stable on O2. WBC 8.8, neutrophils 83%, Doxycycline 100 mg change to oral, 9 more doses to complete 10 day course, and Rocephin 2G IV q24h day 4. Budesonide 0.5 mg neb bid, Xopenex q6h as needed. Tylenol 500 mg po q6h a s needed, Codeine/Phenergan as needed cough. Tessalon Perles as needed cough. SoluMedrol 40 mg IV bid, 4 more doses to complete 10 days of steroids; Lovenox 40 mg bid, & Vistaril as needed anxiety. CBC, CMP and CRP INR/PTT tomorrow. Prone position as infiltrates mainly in posterior lobes. 2. Hyponatremia: 132, Recheck CMP tomorrow. 4. Discharge planning: Adjust treatments as necessary, condition is fluctuating daily.
[2021-05-14] MEDS: Doxycycline 100 MG Tab PO SCH (20:11)
[2021-05-14] MEDS: Montelukast 10 MG Tab PO SCH (20:11)
[2021-05-14] MEDS: Sodium Chloride 0.9% 10 ML Syringe FLUSH PRN (20:12)
[2021-05-15] MEDS: Cholecalciferol (Vitamin D3) 25 MCG Tab PO SCH (08:15)
[2021-05-15] MEDS: Doxycycline 100 MG Tab PO SCH (08:17)
[2021-05-15] MEDS: Enoxaparin 40 MG/0.4 ML Syringe SUBCUT SCH (08:17)
[2021-05-15] MEDS: Polyethylene Glycol 3350 Powder 17 GM Packet PO SCH (08:24)
[2021-05-15] MEDS: Budesonide 0.5 MG/2 ML Neb Susp INH SCH (08:25)
[2021-05-15] MEDS: IVERMECTIN 3 MG PO SCH (09:02)
[2021-05-15] MEDS: methylPREDNISolone Sodium Succinate 40 MG/1 ML SDV IVPUSH SCH (09:04)
[2021-05-15] MEDS: Sodium Chloride 0.9% 10 ML Syringe FLUSH PRN (10:25)
[2021-05-15] MEDS: cefTRIAXone 2 GM Vial IVPUSH SCH (10:26)
[2021-05-15] MEDS: Benzonatate 100 MG Cap PO PRN (10:31)
[2021-05-15] MEDS: Codeine/guaiFENesin 10-100 MG/5 ML Syrup 5 ML Cup PO PRN (10:31)
[2021-05-15] MEDS ORDERED: Zinc Sulfate 220 MG Cap PO SCH (12:00)
[2021-05-15] MEDS ORDERED: Multivitamin Tab PO SCH (12:00)
[2021-05-15] MEDS: Levalbuterol HCl 1.25 MG/3 ML Neb INH PRN (13:55)
--- NOTE | 2021-05-15 15:30 | PCM.DCSUM1 ---
Discharge Summary - Hospital Course HPI Initial Comments: Liang presented to ER last night for increasing shortness of breath, he started running fevers on , went into clinic on Thursday, and tested positive for Covid, set up for monoclonal ab infusion yesterday in [place], also Dr Cook started him on Prednisone 40 mg daily. He has asthma, takes Symbicort and Singulair, Albuterol and MTV. His saturations were in low 90s yesterday during his infusion stated he felt fine during the infusion but then after he got home he felt worse and came to ER. In ER his WBC was 5.2, Hgb 12.5, Sodium was 119, CRP 21.0. He was saturating 94% on room air, admitted to Covid unit for monitoring and IVF to correct hyponatremia. Overnight he desaturated down into 80%, he was started on oxygen with nasal cannula was up to 6L, attempted high flow nasal cannula but could not maintain oxygen above 90%, changed to non-breather mask and now requiring 15L. His temp this morning was 101.9F. He declined Remdesivir treatment due to concern of side effects. Diagnosis: Stroke: No - Discharge Data Discharge Date: 05/15/21 Discharge Disposition: Home, Self-Care 01 Condition: Stable - Referral to Home Health Primary Care Physician: Bk Terry MD - Discharge Diagnosis/Problem(s) (1) Pneumonia due to COVID-19 virus SNOMED Code(s): 005795057597117813 ICD Code: U07.1 - COVID-19; J12.82 - PNEUMONIA DUE TO CORONAVIRUS DISEASE 2018 Status: Acute Current Visit: Yes Problem Details: stable, on room air, but desaturated on ambulation to 85%, recovered with O2 at 1L (2) Tachypnea SNOMED Code(s): 829235978 ICD Code: R06.82 - TACHYPNEA, NOT ELSEWHERE CLASSIFIED Status: Resolved Current Visit: Yes Problem Details: RR at 18-20 (3) Hyponatremia SNOMED Code(s): 08866487 ICD Code: E87.1 - HYPO-OSMOLALITY AND HYPONATREMIA Status: Acute Current Visit: Yes Problem Details: up to 131 (4) Asthma SNOMED Code(s): 268138756 ICD Code: J45.909 - UNSPECIFIED ASTHMA, UNCOMPLICATED Status: Chronic Current Visit: Yes - Patient Summary/Data Hospital Course: Admit on Room air but desaturated first night, was up to 15L on non-rebreather, he had monoclonal ab at outside facility day of admission. He improved weaned back down to 4L, he was started on Dexamethasone but he declined Remdesivir. Received 5 doses of Dexamethasone. He was on IVF until 05/07, drinking Gatorade and water, Sodium has fluctuated, on admit was 119, got up to 134 then dropped back down to 130, now 131. He had weaned down to 1L then room air on /Thursday then required 4L again, he was started on Doxycycline 100 mg IV then changed to orals, 7 doses left to complete 10 day course. Also Rocephin received 5 doses, has 4 more doses of Cefdinir to complete. Spoke with [facility]ist when he desaturated, had repeated CTA as he was having panic feeling and had sudden change after 24 hours on room air, was negative for PE but showed worsening bilateral infiltrates. They recommend continuing antibiotics but change dexamethasone to SoluMedrol 40 mg bid, Lovenox 40 mg bid(was on daily), added Vistaril 50 mg as needed anxiety. He improved with this and is back down to room air at rest but had desaturation with ambulating down to 85%, so qualified for home oxygen. He also noticed improvement with nebulized treatments so will go home with these as well, didn't think he could do his home Symbicort(didn't think he could get enough of medicine breathed in to be of benefit). His liver functions trended down. WBC was fluctuating between normal and 11 for past few days. He has been afebrile since 05/06. He was constipated, started MiraLax but now having diarrhea so discontinued. Follow up with primary doctor in 1 week to recheck CMP(sodium and liver functions). Positive Covid test was on 05/03, symptoms started on 05/02. - Patient Instructions Diet: Usual Diet as Tolerated Activity: As Tolerated Driving: Do Not Drive Notify Provider of: Fever, Increased Pain, Nausea and/or Vomiting Other/Special Instructions: Follow up with Primary doctor in 1 week to recheck your sodium. - Discharge Plan *PRESCRIPTION DRUG MONITORING PROGRAM REVIEWED*: Not Applicable *COPY OF PRESCRIPTION DRUG MONITORING REPORT IN PATIENT NORM: Not Applicable Prescriptions/Med Rec: Chiaraate 200 mg PO TID PRN #12 capsule PRN Reason: Cough Cefdinir 300 mg PO BID #4 capsule Budesonide [Pulmicort] 0.5 mg INH BID@0800,2099 #1 box Codeine/guaiFENesin [Robitussin AC] 10 ml PO Q4H PRN #240 ml PRN Reason: Cough Doxycycline [Vibra-Tabs] 100 mg PO BID@0800,1999 #7 tablet hydrOXYzine pamoate [Vistaril] 50 mg PO Q6H PRN #28 cap PRN Reason: Anxiety levalbuterol HCL [Xopenex] 1.25 mg INH Q6H PRN #1 box PRN Reason: Shortness Of Breath Home Medications: Home Meds Fluticasone Propionate [Flonase] 2 spray NS DAILY 09/29/18 [History] Ibuprofen 600 mg PO QID 09/29/18 [History] Montelukast [Singulair] 10 mg PO BEDTIME 09/29/18 [History] Multivitamin [Multivitamins] 1 ea PO DAILY 09/30/18 [History] Acetaminophen [Tylenol Extra Strength] 500 mg PO Q6H PRN tablet 05/15/21 [Rx] Benzonatate 200 mg PO TID PRN #12 capsule 05/15/21 [Rx] Budesonide [Pulmicort] 0.5 mg INH BID@0800,2099 #1 box 05/15/21 [Rx] Cefdinir 300 mg PO BID #4 capsule 05/15/21 [Rx] Cholecalciferol (Vitamin D3) [Vitamin D3] 125 mcg PO DAILY@0800 tablet 05/15/21 [Rx] Codeine/guaiFENesin [Robitussin AC] 10 ml PO Q4H PRN #240 ml 05/15/21 [Rx] Doxycycline [Vibra-Tabs] 100 mg PO BID@0800,1999 #7 tablet 05/15/21 [Rx] Zinc Sulfate [Zincate] 220 mg PO DAILY@1200 cap 05/15/21 [Rx] hydrOXYzine pamoate [Vistaril] 50 mg PO Q6H PRN #28 cap 05/15/21 [Rx] levalbuterol HCL [Xopenex] 1.25 mg INH Q6H PRN #1 box 05/15/21 [Rx] Oxygen Therapy Mode: Nasal Cannula Oxygen Flow Rate (L/min): 1 Maintain SPO2% less than: 95 Maintain SpO2% greater than: 90 Patient Handouts: Asthma, Adult, COVID-19, 10 Things You Can Do to Manage Your COVID-19 Symptoms at Home - [facility] (02/01/2021), Ivermectin tablets, Deep Vein Thrombosis, Community-Acquired Pneumonia, Adult Forms: ED Department Discharge - Discharge Summary/Plan Comment DC Time >30 min.: Yes Total # of Minutes for Discharge Time: 30 min - General Info Date of Service: 05/15/21 Subjective Update: Liang is doing better today, he was saturating 100% on 1L, on Room air 95%, ambulatory O2 he dropped to 85%, recovered with O2 at 1L with nc. He would like to go home. He qualifies for home oxygen so this was ordered, including nebulizer machine. Having some diarrhea with specks of stools present. Eating better but not back to normal. Afebrile. Functional Status: Reports: Tolerating Diet, Ambulating, Urinating, New Symptoms - Patient Data Vitals - Most Recent: Last Vital Signs Temp 99.0 F 05/15/21 13:00 Pulse 96 05/15/21 14:30 Resp 20 05/15/21 13:00 BP 144/77 H 05/15/21 13:00 Pulse Ox 93 L 05/15/21 14:08 Weight - Most Recent: 171 lb 4 oz Lab Results - Last 24 hrs: Laboratory Results - last 24 hr 05/15/21 05/15/21 05/15/21 Range/Units 06:20 06:20 06:20 WBC 11.7 H (3.2-10.1) x10-3/uL RBC 4.34 (3.90-5.90) x10(6)uL Hgb 13.8 (12.9-17.7) g/dL Hct 40.5 (38.3-50.1) % MCV 93.4 (80.8-98.7) fL MCH 31.9 (27.0-33.3) pg MCHC 34.1 (28.7-35.3) g/dL RDW 12.4 (12.4-15.0) % Plt Count 258 (117-477) x10(3)uL MPV 6.9 (6.7-11.0) fL Add Manual Diff Yes Neutrophils % (Manual) 93 H (46-82) % Band Neutrophils % 1 (0-6) % Lymphocytes % (Manual) 3 L (13-37) % Monocytes % (Manual) 3 L (4-12) % PT 11.6 H (9.0-11.1) sec INR 1.08 (1.00-1.24) APTT 24.9 (24.4-33.2) SECONDS Sodium 131 L (135-145) mmol/L Potassium 4.2 (3.5-5.3) mmol/L Chloride 97 L (100-110) mmol/L Carbon Dioxide 24 (21-32) mmol/L BUN 22 H (7-18) mg/dL Creatinine 1.0 (0.70-1.30) mg/dL Est Cr Clr Drug Dosing 81.99 mL/min Estimated GFR (MDRD) > 60 (>60) BUN/Creatinine Ratio 22.0 H (9-20) Glucose 128 H (80-116) mg/dL Calcium 8.4 L (8.6-10.2) mg/dL Total Bilirubin 0.8 (0.1-1.3) mg/dL AST 33 H (5-25) IU/L ALT 83 H (12-36) U/L Alkaline Phosphatase 111 (56-112) IU/L C-Reactive Protein (0.5-0.9) mg/dL Total Protein 6.3 (6.0-8.0) g/dL Albumin 2.0 L (3.2-4.6) g/dL Globulin 4.3 g/dL Albumin/Globulin Ratio 0.5 05/15/ Range/Units 06:20 WBC (3.2-10.1) x10-3/uL RBC (3.90-5.90) x10(6)uL Hgb (12.9-17.7) g/dL Hct (38.3-50.1) % MCV (80.8-98.7) fL MCH (27.0-33.3) pg MCHC (28.7-35.3) g/dL RDW (12.4-15.0) % Plt Count (117-477) x10(3)uL MPV (6.7-11.0) fL Add Manual Diff Neutrophils % (Manual) (46-82) % Band Neutrophils % (0-6) % Lymphocytes % (Manual) (13-37) % Monocytes % (Manual) (4-12) % PT (9.0-11.1) sec INR (1.00-1.24) APTT (24.4-33.2) SECONDS Sodium (135-145) mmol/L Potassium (3.5-5.3) mmol/L Chloride (100-110) mmol/L Carbon Dioxide (21-32) mmol/L BUN (7-18) mg/dL Creatinine (0.70-1.30) mg/dL Est Cr Clr Drug Dosing mL/min Estimated GFR (MDRD) (>60) BUN/Creatinine Ratio (9-20) Glucose (80-116) mg/dL Calcium (8.6-10.2) mg/dL Total Bilirubin (0.1-1.3) mg/dL AST (5-25) IU/L ALT (12-36) U/L Alkaline Phosphatase (56-112) IU/L C-Reactive Protein 13.7 H* (0.5-0.9) mg/dL Total Protein (6.0-8.0) g/dL Albumin (3.2-4.6) g/dL Globulin g/dL Albumin/Globulin Ratio Med Orders - Current: Current Medications Acetaminophen (Acetaminophen 500 Mg Tab) 500 mg PO Q6H PRN PRN Reason: Pain/Fever Last Admin: 05/13/21 21:18 Dose: 500 mg Documented by: Benzonatate (Benzonatate 100 Mg Cap) 200 mg PO TID PRN PRN Reason: Cough Last Admin: 05/15/21 10:31 Dose: 200 mg Documented by: Budesonide (Budesonide 0.5 Mg/2 Ml Neb Susp) 0.5 mg INH BID@0800,2100 [facility] Last Admin: 05/15/21 08:25 Dose: 0.5 mg Documented by: Ceftriaxone Sodium (Ceftriaxone 2 Gm Vial) 2 gm IVPUSH Q24H [facility] Last Admin: 05/15/21 10:26 Dose: 2 gm Documented by: Cholecalciferol (Cholecalciferol (Vitamin D3) 25 Mcg Tab) 125 mcg PO DAILY@0800 [facility] Last Admin: 05/15/21 08:15 Dose: 125 mcg Documented by: Doxycycline Hyclate (Doxycycline 100 Mg Tab) 100 mg PO BID@0800,2000 [facility] Stop: 05/18/21 20:01 Last Admin: 05/15/21 08:17 Dose: 100 mg Documented by: Enoxaparin Sodium (Enoxaparin 40 Mg/0.4 Ml Syringe) 40 mg SUBCUT Q12H [facility] Last Admin: 05/15/21 08:17 Dose: 40 mg Documented by: Guaifenesin/Codeine Phosphate (Codeine/Guaifenesin 10-100 Mg/5 Ml Syrup 5 Ml Cup) 10 ml PO Q4H PRN PRN Reason: Cough Last Admin: 05/15/21 10:31 Dose: 10 ml Documented by: Hydroxyzine Pamoate (Hydroxyzine Pamoate 50 Mg Cap) 50 mg PO Q6H PRN PRN Reason: Anxiety Last Admin: 05/13/21 21:19 Dose: 50 mg Documented by: Levalbuterol HCl (Levalbuterol Hcl 1.25 Mg/3 Ml Neb) 1.25 mg INH Q6H PRN PRN Reason: Shortness of Breath Last Admin: 05/15/21 13:55 Dose: 1.25 mg Documented by: Lorazepam (Lorazepam 0.5 Mg Tab) 0.5 mg PO Q4H PRN PRN Reason: Anxiety Magnesium Hydroxide (Magnesium Hydroxide 400 Mg/5 Ml Susp 30 Ml Cup) 30 ml PO Q12H PRN PRN Reason: Constipation Methylprednisolone Sodium Succinate (Methylprednisolone Sodium Succinate 40 Mg/1 Ml Sdv) 40 mg IVPUSH Q12H [facility] Stop: 05/16/21 08:01 Last Admin: 05/15/21 09:04 Dose: 40 mg Documented by: Montelukast Sodium (Montelukast 10 Mg Tab) 10 mg PO BEDTIME [facility] Last Admin: 05/14/21 20:11 Dose: 10 mg Documented by: Multivitamins/Minerals/Vitamin C (Multivitamin Tab) 1 tab PO DAILY@1200 [facility] Last Admin: 05/15/21 12:41 Dose: 1 tab Documented by: Polyethylene Glycol (Polyethylene Glycol 3350 Powder 17 Gm Packet) 17 gm PO DAILY [facility] Last Admin: 05/15/21 08:24 Dose: Not Given Documented by: Sodium Chloride (Sodium Chloride 0.9% 10 Ml Syringe) 10 ml FLUSH ASDIRECTED PRN PRN Reason: Keep Vein Open Last Admin: 05/15/21 10:25 Dose: 10 ml Documented by: Zinc Sulfate (Zinc Sulfate 220 Mg Cap) 220 mg PO DAILY@1200 [facility] Last Admin: 05/15/21 12:41 Dose: 220 mg Documented by: Discontinued Medications Acetaminophen (Acetaminophen 500 Mg Tab) 1,000 mg PO ONETIME ONE Stop: 05/06/21 22:04 Last Admin: 05/06/21 23:05 Dose: 1,000 mg Documented by: Acetaminophen (Acetaminophen 500 Mg Tab) 1,000 mg PO Q6H [facility] Acetaminophen (Acetaminophen 500 Mg Tab) 500 mg PO Q6H [facility] Last Admin: 05/09/21 19:44 Dose: Not Given Documented by: Albuterol (Albuterol 0.083% 2.5 Mg/3 Ml Neb Soln) 2.5 mg NEB Q6H [facility] Last Admin: 05/07/21 03:31 Dose: Not Given Documented by: Albuterol (Albuterol 0.083% 2.5 Mg/3 Ml Neb Soln) 2.5 mg NEB Q6H [facility] Last Admin: 05/07/21 05:09 Dose: 2.5 mg Documented by: Albuterol/Ipratropium (Albuterol/Ipratropium 3.0-0.5 Mg/3 Ml Neb Soln) 3 ml NEB ONETIME ONE Stop: 05/06/21 23:10 Last Admin: 05/07/21 00:30 Dose: 3 ml Documented by: Albuterol/Ipratropium (Albuterol/Ipratropium 3.0-0.5 Mg/3 Ml Neb Soln) 3 ml INH Q6H [facility] Last Admin: 05/07/21 08:26 Dose: 3 ml Documented by: Albuterol/Ipratropium (Albuterol/Ipratropium 3.0-0.5 Mg/3 Ml Neb Soln) 3 ml NEB ONETIME ONE Stop: 05/07/21 01:56 Last Admin: 05/07/21 02:05 Dose: 3 ml Documented by: Dexamethasone (Dexamethasone 4 Mg/Ml Sdv) 6 mg IVPUSH DAILY@0800 [facility] Last Admin: 05/11/21 08:08 Dose: 6 mg Documented by: Enoxaparin Sodium (Enoxaparin 40 Mg/0.4 Ml Syringe) 40 mg SUBCUT Q24H [facility] Last Admin: 05/07/21 03:22 Dose: 40 mg Documented by: Enoxaparin Sodium (Enoxaparin 40 Mg/0.4 Ml Syringe) 40 mg SUBCUT Q24H [facility] Last Admin: 05/11/21 08:20 Dose: 40 mg Documented by: Enoxaparin Sodium (Enoxaparin 40 Mg/0.4 Ml Syringe) 40 mg SUBCUT Q12H [facility] Last Admin: 05/13/21 02:33 Dose: 40 mg Documented by: Guaifenesin/Phenylephrine HCl (Guaifenesin/Dextromethorphan 100-10 Mg/5 Ml Soln 5 Ml Cup) 10 ml PO Q4H PRN PRN Reason: Cough Last Admin: 05/09/21 22:06 Dose: 10 ml Documented by: Sodium Chloride (Normal Saline) 1,000 mls @ 999 mls/hr IV .BOLUS ONE Stop: 05/06/21 22:56 Last Admin: 05/06/21 23:05 Dose: 999 mls/hr Documented by: Sodium Chloride (Normal Saline) 1,000 mls @ 999 mls/hr IV .BOLUS ONE Stop: 05/06/21 23:56 Last Admin: 05/07/21 00:40 Dose: 999 mls/hr Documented by: Methylprednisolone Sodium Succinate 125 mg/ Sodium Chloride 102 mls @ 102 mls/hr IV Q6H [facility] Last Admin: 05/07/21 03:21 Dose: Not Given Documented by: Potassium Chloride/Sodium Chloride (1/2 Ns With 20 Meq Kcl) 1,000 mls @ 50 mls/hr IV ASDIRECTED [facility] Last Admin: 05/07/21 03:07 Dose: 50 mls/hr Documented by: Sodium Chloride (Normal Saline) 1,000 mls @ 50 mls/hr IV ASDIRECTED [facility] Last Admin: 05/07/21 16:19 Dose: 50 mls/hr Documented by: Doxycycline Hyclate 100 mg/ (Sodium Chloride) 100 mls @ 100 mls/hr IV Q12H [facility] Stop: 05/18/21 20:59 Last Admin: 05/14/21 09:05 Dose: 100 mls/hr Documented by: Iopamidol (Iopamidol 755 Mg/Ml 75 Ml Bottle) 65 ml IV ONETIME ONE Stop: 05/06/21 23:48 Last Admin: 05/07/21 00:12 Dose: 65 ml Documented by: Iopamidol (Iopamidol 755 Mg/Ml 100 Ml Bottle) 100 ml IV . DIRECTED ONE Stop: 05/11/21 10:59 Last Admin: 05/11/21 12:06 Dose: 90 ml Documented by: Ketorolac Tromethamine (Ketorolac 30 Mg/Ml Sdv) 30 mg IVPUSH ONETIME ONE Stop: 05/06/21 22:03 Last Admin: 05/06/21 23:05 Dose: 30 mg Documented by: Ketorolac Tromethamine (Ketorolac 30 Mg/Ml Sdv) 30 mg IVPUSH Q6H [facility] Last Admin: 05/07/21 03:31 Dose: Not Given Documented by: Ketorolac Tromethamine (Ketorolac 30 Mg/Ml Sdv) 30 mg IVPUSH Q6H [facility] Last Admin: 05/07/21 05:08 Dose: 30 mg Documented by: Ketorolac Tromethamine (Ketorolac 30 Mg/Ml Sdv) 30 mg IVPUSH Q6H [facility] Last Admin: 05/09/21 00:21 Dose: Not Given Documented by: Ketorolac Tromethamine (Ketorolac 30 Mg/Ml Sdv) 30 mg IVPUSH Q6H PRN PRN Reason: pain/fever Last Admin: 05/09/21 08:47 Dose: 30 mg Documented by: Levalbuterol HCl (Levalbuterol Hcl 1.25 Mg/3 Ml Neb) 1.25 mg INH Q6H [facility] Lorazepam (Lorazepam 2 Mg/Ml Sdv) 0.5 mg IV Q4H PRN PRN Reason: Nausea/Vomiting Methylprednisolone Sodium Succinate (Methylprednisolone Sodium Succinate 125 Mg/2 Ml Sdv) Confirm Administered Dose 125 mg .ROUTE .STK-MED ONE Stop: 05/07/21 02:01 Last Admin: 05/07/21 03:30 Dose: Not Given Documented by: Methylprednisolone Sodium Succinate (Methylprednisolone Sodium Succinate 125 Mg/2 Ml Sdv) 125 mg IVPUSH Q6H [facility] Last Admin: 05/07/21 02:05 Dose: 125 mg Documented by: Methylprednisolone Sodium Succinate (Methylprednisolone Sodium Succinate 40 Mg/1 Ml Sdv) 40 mg IVPUSH Q12H [facility] Last Admin: 05/13/21 02:34 Dose: 40 mg Documented by: Multivitamins/Minerals/Vitamin C (Multivitamin Tab) 1 tab PO DAILY@0800 [facility] Last Admin: 05/14/21 09:02 Dose: 1 tab Documented by: Ivermectin 3mg 0 each PO DAILY [facility] Stop: 05/15/21 09:01 Last Admin: 05/15/21 09:02 Dose: 15 each Documented by: Zinc Sulfate (Zinc Sulfate 220 Mg Cap) 220 mg PO DAILY@0800 [facility] Last Admin: 05/14/21 09:03 Dose: 220 mg Documented by: - Exam Quality Assessment: Reports: Supplemental Oxygen General: Reports: Alert, Oriented, Cooperative Lungs: Reports: Clear to Auscultation, Normal Respiratory Effort, Decreased Breath Sounds (posterior BLL), Crackles (bibasilar). Denies: Wheezing Cardiovascular: Reports: Regular Rate, Regular Rhythm GI/Abdominal Exam: Normal Bowel Sounds, Soft, Non-Tender, No Distention Extremities: No Pedal Edema, Normal Capillary Refill Skin: Reports: Warm, Dry, Intact
== END 2021-05-15 16:50 | disposition home or self-care (01) | DRG 177 ==
LOC: FB.ED 21:45 → FB.MS 05-07 01:29
PROVIDERS: ADMIT Family Medicine; ATTEND Family Medicine
PROC: 8E0ZXY6 Isolation (ICD-10-PCS; principal; 2021-05-07)
PROC: 3E0333Z Introduction of Anti-inflammatory into Peripheral Vein, Percutaneous Approach (ICD-10-PCS; 2021-05-07)
DX: U07.1 COVID-19 (principal); J12.82 Pneumonia due to coronavirus disease 2019; E87.1 Hypo-osmolality and hyponatremia; E46 Unspecified protein-calorie malnutrition; J45.909 Unspecified asthma, uncomplicated; H54.7 Unspecified visual loss; M54.9 Dorsalgia, unspecified; G89.29 Other chronic pain; E88.09 Other disorders of plasma-protein metabolism, not elsewhere classified; Z91.09 Other allergy status, other than to drugs and biological substances; Z79.52 Long term (current) use of systemic steroids; Z79.899 Other long term (current) drug therapy; Z98.890 Other specified postprocedural states
CPT/HCPCS: 36415; 71275; 80048; 80053; 85025; 85610; 85730; 86140; 87804; 87804-59; 93005; 94640; 96374; 99285-25; A9270-GY; J0696; J1100; J1650; J1885; J2920; J2930; J3480; J3490; J7030; J7612-GY; J7620-GY; Q9967

== ENCOUNTER 2021-05-18 02:00 | Emergency (ER) | payer OTHER ==
--- NOTE | 2021-05-18 03:03 | EDM.PDOC ---
ED HPI GENERAL MEDICAL PROBLEM - General Chief Complaint: Respiratory Problem Stated Complaint: OXYGEN Time Seen by Provider: 05/18/21 02:15 Source of Information: Reports: Patient, Family History Limitations: Reports: No Limitations - History of Present Illness INITIAL COMMENTS - FREE TEXT/NARRATIVE: Patient presented to the ED because of a drop in his oxygen while sleeping. He doesn't have dyspnea but still has some dry cough and low grade fever. He was diagnosed with Covid 2 weeks ago, stayed in the hospital and received the monoclonal Ab. He was then discharged to home with oxygen, cedinir,doxycycline and oral steroids. - Related Data Allergies Allergy/AdvReac Type Severity Reaction Status Date / Time gluten Allergy Diarrhea Verified 05/06/21 21:52 lactose Allergy Nausea Verified 05/06/21 21:52 Home Meds: Home Meds Fluticasone Propionate [Flonase] 2 spray NS DAILY 09/29/18 [History] Ibuprofen 600 mg PO QID 09/29/18 [History] Montelukast [Singulair] 10 mg PO BEDTIME 09/29/18 [History] Multivitamin [Multivitamins] 1 ea PO DAILY 09/30/18 [History] Acetaminophen [Tylenol Extra Strength] 500 mg PO Q6H PRN tablet 05/15/21 [Rx] Benzonatate 200 mg PO TID PRN #12 capsule 05/15/21 [Rx] Budesonide [Pulmicort] 0.5 mg INH BID@0800,2100 #1 box 05/15/21 [Rx] Cefdinir 300 mg PO BID #4 capsule 05/15/21 [Rx] Cholecalciferol (Vitamin D3) [Vitamin D3] 125 mcg PO DAILY@0800 tablet 05/15/21 [Rx] Codeine/guaiFENesin [Robitussin AC] 10 ml PO Q4H PRN #240 ml 05/15/21 [Rx] Doxycycline [Vibra-Tabs] 100 mg PO BID@0800,2000 #7 tablet 05/15/21 [Rx] Zinc Sulfate [Zincate] 220 mg PO DAILY@1200 cap 05/15/21 [Rx] hydrOXYzine pamoate [Vistaril] 50 mg PO Q6H PRN #28 cap 05/15/21 [Rx] levalbuterol HCL [Xopenex] 1.25 mg INH Q6H PRN #1 box 05/15/21 [Rx] Azithromycin [Zithromax] 500 mg PO DAILY #5 tab 05/18/21 [Rx] predniSONE [Prednisone] 40 mg PO DAILY #10 tablet 05/18/21 [Rx] Past Medical History HEENT History: Reports: Allergic Rhinitis, Impaired Vision Cardiovascular History: Reports: None Other Cardiovascular History: STATES PALPITATIONS CHECKED PER HOLTER MONITOR, NEGATIVE YEARS AGO. Respiratory History: Reports: Asthma Gastrointestinal History: Reports: Other (See Below) Other Gastrointestinal History: GLUTEN ET LACTOSE INTOLERANCE. Genitourinary History: Other Genitourinary History: URNINARY FREQUENCY. [employer] History: Reports: None Musculoskeletal History: Reports: Back Pain, Chronic, Fracture Other Musculoskeletal History: hx bilat hand fx Neurological History: Reports: Other (See Below) Other Neuro History: LUMBAR DISC HERNIATION Psychiatric History: Reports: None Endocrine/Metabolic History: Reports: None Hematologic History: Reports: None Dermatologic History: Reports: Eczema - Infectious Disease History Infectious Disease History: Reports: Chicken Pox, Measles, Mumps, Novel Coronavirus, Shingles - Past Surgical History Head Surgeries/Procedures: Reports: None HEENT Surgical History: Reports: Tonsillectomy GI Surgical History: Reports: Colonoscopy, EGD Musculoskeletal Surgical History: Reports: Arthroscopic Procedure, Other (See Below) Other Musculoskeletal Surgeries/Procedures:: BUNIONECTOMY-LEFT. BONE SPUR EXCISION BILAT ANKLE. SCRAPING OF LEFT HIP. Social & Family History - Family History Family Medical History: No Pertinent Family History GI: Reports: None - Tobacco Use Tobacco Use Status *Q: Never Tobacco User Second Hand Smoke Exposure: No - Caffeine Use Caffeine Use: Reports: Coffee - Recreational Drug Use Recreational Drug Use: No ED ROS GENERAL - Review of Systems Review Of Systems: See Below Constitutional: Reports: No Symptoms HEENT: Reports: No Symptoms Respiratory: Reports: Cough Cardiovascular: Reports: No Symptoms Endocrine: Reports: No Symptoms GI/Abdominal: Reports: No Symptoms : Reports: No Symptoms Musculoskeletal: Reports: No Symptoms Skin: Reports: No Symptoms Neurological: Reports: No Symptoms ED EXAM, GENERAL - Physical Exam Exam: See Below Exam Limited By: No Limitations General Appearance: Alert, No Apparent Distress Ears: Normal External Exam, Normal Canal Nose: Normal Inspection, Normal Mucosa, No Blood Throat/Mouth: Normal Inspection, Normal Lips, Normal Teeth Head: Atraumatic, Normocephalic Neck: Normal Inspection, Supple, Non-Tender, Full Range of Motion Respiratory/Chest: No Respiratory Distress, Lungs Clear, Normal Breath Sounds, No Accessory Muscle Use, Chest Non-Tender Cardiovascular: Normal Peripheral Pulses, Regular Rate, Rhythm, No Edema, No Gallop, No JVD, No Murmur, No Rub GI/Abdominal: Normal Bowel Sounds, Soft, Non-Tender, No Organomegaly, No Distention, No Abnormal Bruit Back Exam: Normal Inspection, Full Range of Motion Extremities: Normal Inspection, Normal Range of Motion, Non-Tender, No Pedal Edema, Normal Capillary Refill Neurological: Alert, Oriented, CN II-XII Intact, Normal Cognition, Normal Gait, Normal Reflexes, No Motor/Sensory Deficits Psychiatric: Normal Affect, Normal Mood Skin Exam: Warm Course - Vital Signs Text/Narrative:: Reassurance Last Recorded V/S: Last Vital Signs Temp 36.2 C 05/18/21 02:08 Pulse 87 05/18/21 02:08 Resp 20 05/18/21 02:08 BP 155/56 H 05/18/21 02:08 Pulse Ox 88 L 05/18/21 02:08 Departure - Departure Time of Disposition: 03:00 Disposition: Home, Self-Care 01 Condition: Good Clinical Impression: Post-COVID chronic dyspnea, Asthma exacerbation - Discharge Information Prescriptions: predniSONE [Prednisone] 40 mg PO DAILY #10 tablet Azithromycin [Zithromax] 500 mg PO DAILY #5 tab Instructions: COVID-19 Frequently Asked Questions, Asthma, Adult, [id number] Referrals: Bk Terry MD [Primary Care Provider] - Forms: ED Department Discharge Additional Instructions: Please read discharge instructions on post covid syndrome and asthma flare up Drink at least 2 liters of water daily Continue your inhalers and antibiotics until gone Zithromax 500 mg once daily for 5 days starting today Prednisone 20 mg, tablets daily starting today Continue using your oxygen Follow up as needed Sepsis Event Note (ED) - Evaluation Sepsis Screening Result: No Definite Risk - Focused Exam Vital Signs: Vital Signs Temp Pulse Resp BP Pulse Ox 05/18/21 02:08 36.2 C 87 20 155/56 H 88 L
== END 2021-05-18 03:15 | disposition home or self-care (01) ==
LOC: FB.ED 02:00
DX: J45.901 Unspecified asthma with (acute) exacerbation (principal); U09.9 Post COVID-19 condition, unspecified; Z91.018 Allergy to other foods; Z91.011 Allergy to milk products; Z79.899 Other long term (current) drug therapy
CPT/HCPCS: 99283

== ENCOUNTER 2021-05-20 07:32 | Inpatient (IN) | payer OTHER ==
--- NOTE | 2021-05-20 08:08 | EDM.PDOC ---
ED HPI GENERAL MEDICAL PROBLEM - General Chief Complaint: Respiratory Problem Stated Complaint: LOW O2 Time Seen by Provider: 05/20/21 07:50 Source of Information: Reports: Patient History Limitations: Reports: No Limitations - History of Present Illness INITIAL COMMENTS - FREE TEXT/NARRATIVE: pt comes from w c/o SOB and progressive cough worsening over the past 3 days, pt had Covid on the and was hospitalized for resperatory distress for 1 week after that , he did will after hospital discharge untill 3 days ago, he was seen then here and started on z pack and prednisone but sx continue to worsen , pt report fever and chills , denies any chest pain or any other associated sx, he was 78% on arrival . and has been on O2 at home on and off since hospital discharge . pt has Hx of asthma and has been using his inhalers , no Hx of smoking. - Related Data Allergies Allergy/AdvReac Type Severity Reaction Status Date / Time gluten Allergy Diarrhea Verified 05/06/21 21:52 lactose Allergy Nausea Verified 05/06/21 21:52 Home Meds: Home Meds Fluticasone Propionate [Flonase] 2 spray NS DAILY 09/29/18 [History] Ibuprofen 600 mg PO QID 09/29/18 [History] Montelukast [Singulair] 10 mg PO BEDTIME 09/29/18 [History] Multivitamin [Multivitamins] 1 ea PO DAILY 09/30/18 [History] Acetaminophen [Tylenol Extra Strength] 500 mg PO Q6H PRN tablet 05/15/21 [Rx] Benzonatate 200 mg PO TID PRN #12 capsule 05/15/21 [Rx] Budesonide [Pulmicort] 0.5 mg INH BID@0800,2100 #1 box 05/15/21 [Rx] Cefdinir 300 mg PO BID #4 capsule 05/15/21 [Rx] Cholecalciferol (Vitamin D3) [Vitamin D3] 125 mcg PO DAILY@0800 tablet 05/15/21 [Rx] Codeine/guaiFENesin [Robitussin AC] 10 ml PO Q4H PRN #240 ml 05/15/21 [Rx] Doxycycline [Vibra-Tabs] 100 mg PO BID@0800,2000 #7 tablet 05/15/21 [Rx] Zinc Sulfate [Zincate] 220 mg PO DAILY@1200 cap 05/15/21 [Rx] hydrOXYzine pamoate [Vistaril] 50 mg PO Q6H PRN #28 cap 05/15/21 [Rx] levalbuterol HCL [Xopenex] 1.25 mg INH Q6H PRN #1 box 05/15/21 [Rx] Azithromycin [Zithromax] 500 mg PO DAILY #5 tab 05/18/21 [Rx] predniSONE [Prednisone] 40 mg PO DAILY #10 tablet 05/18/21 [Rx] Past Medical History HEENT History: Reports: Allergic Rhinitis, Impaired Vision Cardiovascular History: Reports: None Other Cardiovascular History: STATES PALPITATIONS CHECKED PER HOLTER MONITOR, NEGATIVE YEARS AGO. Respiratory History: Reports: Asthma Gastrointestinal History: Reports: Other (See Below) Other Gastrointestinal History: GLUTEN ET LACTOSE INTOLERANCE. Genitourinary History: Other Genitourinary History: URNINARY FREQUENCY. 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 Musculoskeletal History: Reports: Back Pain, Chronic, Fracture Other Musculoskeletal History: hx bilat hand fx Neurological History: Reports: Other (See Below) Other Neuro History: LUMBAR DISC HERNIATION Psychiatric History: Reports: None Endocrine/Metabolic History: Reports: None Hematologic History: Reports: None Dermatologic History: Reports: Eczema - Infectious Disease History Infectious Disease History: Reports: Chicken Pox, Measles, Mumps, Novel Coronavirus, Shingles - Past Surgical History Head Surgeries/Procedures: Reports: None HEENT Surgical History: Reports: Tonsillectomy GI Surgical History: Reports: Colonoscopy, EGD Musculoskeletal Surgical History: Reports: Arthroscopic Procedure, Other (See Below) Other Musculoskeletal Surgeries/Procedures:: BUNIONECTOMY-LEFT. BONE SPUR EXCISION BILAT ANKLE. SCRAPING OF LEFT HIP. Social & Family History - Family History Family Medical History: No Pertinent Family History GI: Reports: None - Caffeine Use Caffeine Use: Reports: Coffee ED ROS GENERAL - Review of Systems Review Of Systems: See Below Constitutional: Reports: Fever, Chills, Weakness, Fatigue HEENT: Reports: No Symptoms Respiratory: Reports: Shortness of Breath, Wheezing, Cough. Denies: Pleuritic Chest Pain Cardiovascular: Reports: No Symptoms GI/Abdominal: Reports: No Symptoms : Reports: No Symptoms Musculoskeletal: Reports: No Symptoms Skin: Reports: No Symptoms Neurological: Reports: No Symptoms Psychiatric: Reports: No Symptoms ED EXAM, GENERAL - Physical Exam Exam: See Below Exam Limited By: No Limitations General Appearance: Alert, Moderate Distress, Severe Distress Eye Exam: Bilateral Eye: Normal Inspection Nose: Normal Inspection Throat/Mouth: Normal Oropharynx Head: Atraumatic, Normocephalic Neck: Normal Inspection, Supple Respiratory/Chest: Wheezing, Pleural Rub Cardiovascular: Normal Peripheral Pulses, Regular Rate, Rhythm GI/Abdominal: Normal Bowel Sounds, Soft Back Exam: Normal Inspection Extremities: Normal Inspection, Normal Range of Motion, Normal Capillary Refill Neurological: Alert, Oriented, CN II-XII Intact, No Motor/Sensory Deficits Skin Exam: Warm, Dry #1 Interpretation EKG Date: 05/20/21 Time: 08:00 Rhythm: Other (sinus tachycardia) Rate (Beats/Min): 108 [place]: Normal P-Wave: Present QRS: Normal ST-T: Normal QT: Normal Course - Vital Signs Text/Narrative:: labs and xrays were explained to pt , pt has bilateral new infiltrates in CXR , blood cultures were taken. pt is condition is stable here after nebs and solumedrol, sats at 91% on 5 liters nc, vitals are stable. discussed with Dr Orellana and will admit pt to his care. pt likly still has Covid infection/ persistent or recurrent with presumed secondary bacterial pneumonia, Rocephin and Zithromax were started in ER . Last Recorded V/S: Last Vital Signs Temp 36.6 C 05/20/21 07:32 Pulse 117 H 05/20/21 07:32 Resp 32 H 05/20/21 07:32 BP 149/80 H 05/20/21 07:32 Pulse Ox 78 L 05/20/21 07:32 - Orders/Labs/Meds Orders: Active Orders 24 hr Category Date Time Status Patient Status [ADT] Routine ADT 05/20/21 13:15 Ordered Oxygen Therapy [RC] PRN Care 05/20/21 13:15 Ordered RT Aerosol Therapy [RC] ASDIRECTED Care 05/20/21 08:14 Active Up With Assistance [RC] ASDIRECTED Care 05/20/21 13:15 Ordered VTE/DVT Education [RC] Per Unit Routine Care 05/20/21 13:15 Ordered Vital Signs [RC] Q4H Care 05/20/21 13:15 Ordered CORONAVIRUS COVID-19 GAURANG [MOLEC] Routine Lab 05/20/21 12:00 Received CULTURE BLOOD [BC] Urgent Lab 05/20/21 08:25 Received CULTURE BLOOD [BC] Urgent Lab 05/20/21 08:30 Results Azithromycin [Zithromax] 500 mg Med 05/20/21 12:41 Active Sodium Chloride 0.9% [Normal Saline AdvBag] 250 ml IV ONETIME Ondansetron [Zofran ODT] Med 05/20/21 13:15 Ordered 4 mg PO Q4H PRN Blood Culture x2 Reflex Set [OM.PC] Urgent Oth 05/20/21 08:13 Ordered Resuscitation Status Routine Resus Stat 05/20/21 13:15 Ordered EKG 12 Lead [EK] Routine Ther 05/20/21 08:13 Ordered Medication Orders Azithromycin 500 mg/ Sodium (Chloride) 250 mls @ 250 mls/hr IV ONETIME ONE Stop: 05/20/21 13:40 Labs: Laboratory Tests 05/20/21 05/20/21 05/20/21 Range/Units 08:25 08:25 08:25 WBC 11.5 H (3.2-10.1) x10-3/uL RBC 3.71 L (3.90-5.90) x10(6)uL Hgb 11.7 L (12.9-17.7) g/dL Hct 34.5 L (38.3-50.1) % MCV 93.1 (80.8-98.7) fL MCH 31.6 (27.0-33.3) pg MCHC 33.9 (28.7-35.3) g/dL RDW 12.4 (12.4-15.0) % Plt Count 270 (117-477) x10(3)uL MPV 6.0 L (6.7-11.0) fL Add Manual Diff Yes Neutrophils % (Manual) 95 H (46-82) % Band Neutrophils % 2 (0-6) % Monocytes % (Manual) 2 L (4-12) % Eosinophils % (Manual) 1 (0-5) % Hypersegmented Neuts Many Sodium 133 L (135-145) mmol/L Potassium 3.3 L (3.5-5.3) mmol/L Chloride 99 L (100-110) mmol/L Carbon Dioxide 26 (21-32) mmol/L BUN 14 (7-18) mg/dL Creatinine 0.9 (0.70-1.30) mg/dL Est Cr Clr Drug Dosing 85.22 mL/min Estimated GFR (MDRD) > 60 (>60) BUN/Creatinine Ratio 15.6 (9-20) Glucose 108 (80-116) mg/dL Calcium 8.4 L (8.6-10.2) mg/dL Total Bilirubin 0.7 (0.1-1.3) mg/dL AST 23 D (5-25) IU/L ALT 29 D (12-36) U/L Alkaline Phosphatase 99 (56-112) IU/L Troponin I 10.9 (4.0-60.3) pg/mL NT-Pro-B Natriuret Pep 476 H (<=125) pg/mL Total Protein 5.9 L (6.0-8.0) g/dL Albumin 1.7 L* (3.2-4.6) g/dL Globulin 4.2 g/dL Albumin/Globulin Ratio 0.4 Meds: Medications Generic Name Dose Route Start Last Admin Trade Name Freq PRN Reason Stop Dose Admin Azithromycin 500 mg/ Sodium 250 mls @ 250 mls/hr 05/20/21 12:41 Chloride IV 05/20/21 13:40 ONETIME ONE Discontinued Medications Generic Name Dose Route Start Last Admin Trade Name Freq PRN Reason Stop Dose Admin Albuterol/Ipratropium 3 ml 05/20/21 08:13 05/20/21 08:44 Albuterol/Ipratropium 3.0-0.5 Mg/3 Ml Neb Soln NEB 05/20/21 08:14 3 ml ONETIME ONE Administration Ceftriaxone Sodium 1 gm/ 50 mls @ 200 mls/hr 05/20/21 10:01 05/20/21 11:36 Sodium Chloride IV 05/20/21 10:15 200 mls/hr ONETIME ONE Administration Methylprednisolone Sodium Succinate 125 mg 05/20/21 08:13 05/20/21 08:44 Methylprednisolone Sodium Succinate 125 Mg/2 Ml Sdv IVPUSH 05/20/21 08:14 125 mg ONETIME ONE Administration Departure - Departure Time of Disposition: 13:21 Disposition: Admitted As Inpatient 68 Clinical Impression: Pneumonia - Discharge Information Referrals: Bk Terry MD [Primary Care Provider] - Forms: ED Department Discharge Sepsis Event Note (ED) - Evaluation Sepsis Screening Result: Possible Sepsis Risk - Focused Exam Vital Signs: Vital Signs Temp Pulse Resp BP Pulse Ox Pulse Ox 05/20/21 07:32 36.6 C 117 H 32 H 149/80 H 78 L 78 L - My Orders Last 24 Hours: My Active Orders 05/20/21 08:13 Blood Culture x2 Reflex Set [OM.PC] Urgent EKG 12 Lead [EK] Routine 05/20/21 08:14 RT Aerosol Therapy [RC] ASDIRECTED 05/20/21 08:25 CULTURE BLOOD [BC] Urgent 05/20/21 08:30 CULTURE BLOOD [BC] Urgent 05/20/21 12:00 CORONAVIRUS COVID-19 GAURANG [MOLEC] Routine 05/20/21 12:41 Azithromycin [Zithromax] 500 mg Sodium Chloride 0.9% [Normal Saline AdvBag] 250 ml IV ONETIME 05/20/21 13:15 Patient Status [ADT] Routine Oxygen Therapy [RC] PRN Up With Assistance [RC] ASDIRECTED VTE/DVT Education [RC] Per Unit Routine Vital Signs [RC] Q4H Ondansetron [Zofran ODT] 4 mg PO Q4H PRN Resuscitation Status Routine - Assessment/Plan Last 24 Hours: My Active Orders 05/20/21 08:13 Blood Culture x2 Reflex Set [OM.PC] Urgent EKG 12 Lead [EK] Routine 05/20/21 08:14 RT Aerosol Therapy [RC] ASDIRECTED 05/20/21 08:25 CULTURE BLOOD [BC] Urgent 05/20/21 08:30 CULTURE BLOOD [BC] Urgent 05/20/21 12:00 CORONAVIRUS COVID-19 GAURANG [MOLEC] Routine 05/20/21 12:41 Azithromycin [Zithromax] 500 mg Sodium Chloride 0.9% [Normal Saline AdvBag] 250 ml IV ONETIME 05/20/21 13:15 Patient Status [ADT] Routine Oxygen Therapy [RC] PRN Up With Assistance [RC] ASDIRECTED VTE/DVT Education [RC] Per Unit Routine Vital Signs [RC] Q4H Ondansetron [Zofran ODT] 4 mg PO Q4H PRN Resuscitation Status Routine
[2021-05-20] MEDS ORDERED: methylPREDNISolone Sodium Succinate 125 MG/2 ML SDV IVPUSH ONE (08:13)
[2021-05-20] MEDS ORDERED: Albuterol/Ipratropium 3.0-0.5 MG/3 ML Neb Soln NEB ONE (08:13)
[2021-05-20] MEDS ORDERED: cefTRIAXone 1 GM in Sodium Chloride 0.9% 50 ML IV ONE (10:01)
--- NOTE | 2021-05-20 11:22 | CR ---
INDICATION: Cough, positive for COVID April 30. CHEST, ONE VIEW: AP portable upright view of the chest 05/20/21 was compared with 04/15/17 and reveals fluffy, mostly peripheral infiltration extending through both lung rizo, appearing most severe on the left. The appearance could be on the basis of numerous entities, including COVID-19 pneumonia and metastatic disease, as well as more unusual pneumonia. The heart did not appear enlarged. The aorta is calcified in the arch area. Overlying EKG leads are noted. IMPRESSION: Extensive infiltration compatible with pneumonia, although other etiology, even neoplasia - metastatic disease, cannot be excluded. MTDD
[2021-05-20] MEDS ORDERED: Azithromycin 500 MG in Sodium Chloride 0.9% 250 ML IV ONE (12:41)
[2021-05-20] MEDS ORDERED: Ondansetron 4 MG Tab.DIS PO PRN (13:15)
--- NOTE | 2021-05-20 17:42 | PCM.HP.2 ---
<Jony Orellana M - Last Filed: 05/20/21 17:37> H&P History of Present Illness - General Date of Service: 05/20/21 Admit Problem/Dx: Admission Diagnosis/Problem Admission Diagnosis/Problem Pneumonia Source of Information: Patient History Limitations: Reports: No Limitations - History of Present Illness Initial Comments - Free Text/Narative: Liang complains of shortness of breath ,cough ,wheezing and hypoxia over the last 3 days. He has a history of asthma and recent covid 19 pneumonia. He denies fever/chills. He was hospitalized for a week, at end of April and was discharged home on when necessary oxygen. Upon arrival in the ED today his oxygen level was 70% on room. - Related Data Allergies/Adverse Reactions: Allergies Allergy/AdvReac Type Severity Reaction Status Date / Time gluten Allergy Diarrhea Verified 05/06/21 21:52 lactose Allergy Nausea Verified 05/06/21 21:52 Home Medications: Home Meds Fluticasone Propionate [Flonase] 2 spray NS DAILY PRN 09/29/18 [History] Ibuprofen 400 mg PO QID PRN 09/29/18 [History] Montelukast [Singulair] 10 mg PO BEDTIME 09/29/18 [History] Multivitamin [Multivitamins] 1 ea PO DAILY 09/30/18 [History] Acetaminophen [Tylenol Extra Strength] 500 mg PO Q6H PRN tablet 05/15/21 [Rx] Benzonatate 200 mg PO TID PRN #12 capsule 05/15/21 [Rx] Budesonide [Pulmicort] 0.5 mg INH BID@0800,2100 #1 box 05/15/21 [Rx] Cholecalciferol (Vitamin D3) [Vitamin D3] 125 mcg PO DAILY@0800 tablet 05/15/21 [Rx] Codeine/guaiFENesin [Robitussin AC] 10 ml PO Q4H PRN #240 ml 05/15/21 [Rx] Zinc Sulfate [Zincate] 220 mg PO DAILY@1200 cap 05/15/21 [Rx] hydrOXYzine pamoate [Vistaril] 50 mg PO Q6H PRN #28 cap 05/15/21 [Rx] levalbuterol HCL [Xopenex] 1.25 mg INH Q6H PRN #1 box 05/15/21 [Rx] Azithromycin [Zithromax] 500 mg PO DAILY #5 tab 05/18/21 [Rx] predniSONE [Prednisone] 40 mg PO DAILY #10 tablet 05/18/21 [Rx] Acetylcysteine [T-Wkmruv-x-Cysteine] 1,200 mg PO DAILY 05/20/21 [History] Past Medical History HEENT History: Reports: Allergic Rhinitis, Impaired Vision Cardiovascular History: Reports: None Other Cardiovascular History: STATES PALPITATIONS CHECKED PER HOLTER MONITOR, NEGATIVE YEARS AGO. Respiratory History: Reports: Asthma Gastrointestinal History: Reports: Other (See Below) Other Gastrointestinal History: GLUTEN ET LACTOSE INTOLERANCE. Genitourinary History: Other Genitourinary History: URNINARY FREQUENCY. 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: Reports: None Musculoskeletal History: Reports: Back Pain, Chronic, Fracture Other Musculoskeletal History: hx bilat hand fx Neurological History: Reports: Other (See Below) Other Neuro History: LUMBAR DISC HERNIATION Psychiatric History: Reports: None Endocrine/Metabolic History: Reports: None Hematologic History: Reports: None Dermatologic History: Reports: Eczema - Infectious Disease History Infectious Disease History: Reports: Chicken Pox, Measles, Mumps, Novel Coronavirus, Shingles - Past Surgical History Head Surgeries/Procedures: Reports: None HEENT Surgical History: Reports: Tonsillectomy GI Surgical History: Reports: Colonoscopy, EGD Musculoskeletal Surgical History: Reports: Arthroscopic Procedure, Other (See Below) Other Musculoskeletal Surgeries/Procedures:: BUNIONECTOMY-LEFT. BONE SPUR EXCISION BILAT ANKLE. SCRAPING OF LEFT HIP. Social & Family History - Family History Family Medical History: No Pertinent Family History GI: Reports: None - Tobacco Use Tobacco Use Status *Q: Never Tobacco User - Caffeine Use Caffeine Use: Reports: None - Recreational Drug Use Recreational Drug Use: No H&P Review of Systems - Review of Systems: Review Of Systems: Comprehensive ROS is negative, except as noted in HPI. Exam - Exam Exam: See Below - Vital Signs Vital Signs: Last Vital Signs Temp 97.9 F 05/20/21 07:32 Pulse 117 H 05/20/21 07:32 Resp 32 H 05/20/21 07:32 BP 149/80 H 05/20/21 07:32 Pulse Ox 78 L 05/20/21 07:32 Weight: 72.665 kg - Exam Quality Assessment: Supplemental Oxygen General: Moderate Distress HEENT: PERRLA, Hearing Intact, Mucosa Moist & [place], Nares Patent, Normal Nasal Septum, Posterior Pharynx Clear, Conjunctiva Clear, EOMI, EACs Clear, TMs Clear Neck: Supple, Trachea Midline, 2 Lungs: Decreased Breath Sounds Cardiovascular: Regular Rate, Regular Rhythm GI/Abdominal Exam: Normal Bowel Sounds, Soft, Non-Tender, No Organomegaly, No Distention, No Abnormal Bruit, No Mass, Pelvis Stable (Male) Exam: Deferred Rectal (Males) Exam: Deferred Back Exam: Normal Inspection, Full Range of Motion, NT Extremities: Normal Inspection, Normal Range of Motion, Non-Tender, No Pedal Edema, Normal Capillary Refill Skin: Warm, Dry, Intact Neurological: Cranial Nerves Intact, Reflexes Equal Bilateral Neuro Extensive - Mental Status: Alert, Oriented x3, Normal Mood/Affect, Normal Cognition Neuro Extensive - Motor, Sensory, Reflexes: CN II-XII Intact, Normal Gait, Normal Reflexes Psychiatric: Alert, Normal Affect, Normal Mood - Patient Data Lab Results Last 24 hrs: Laboratory Results - last 24 hr 05/20/21 05/20/21 05/20/21 Range/Units 08:25 08:25 08:25 WBC 11.5 H (3.2-10.1) x10-3/uL RBC 3.71 L (3.90-5.90) x10(6)uL Hgb 11.7 L (12.9-17.7) g/dL Hct 34.5 L (38.3-50.1) % MCV 93.1 (80.8-98.7) fL MCH 31.6 (27.0-33.3) pg MCHC 33.9 (28.7-35.3) g/dL RDW 12.4 (12.4-15.0) % Plt Count 270 (117-477) x10(3)uL MPV 6.0 L (6.7-11.0) fL Add Manual Diff Yes Neutrophils % (Manual) 95 H (46-82) % Band Neutrophils % 2 (0-6) % Monocytes % (Manual) 2 L (4-12) % Eosinophils % (Manual) 1 (0-5) % Hypersegmented Neuts Many Sodium 133 L (135-145) mmol/L Potassium 3.3 L (3.5-5.3) mmol/L Chloride 99 L (100-110) mmol/L Carbon Dioxide 26 (21-32) mmol/L BUN 14 (7-18) mg/dL Creatinine 0.9 (0.70-1.30) mg/dL Est Cr Clr Drug Dosing 85.22 mL/min Estimated GFR (MDRD) > 60 (>60) BUN/Creatinine Ratio 15.6 (9-20) Glucose 108 (80-116) mg/dL Calcium 8.4 L (8.6-10.2) mg/dL Total Bilirubin 0.7 (0.1-1.3) mg/dL AST 23 D (5-25) IU/L ALT 29 D (12-36) U/L Alkaline Phosphatase 99 (56-112) IU/L Troponin I 10.9 (4.0-60.3) pg/mL NT-Pro-B Natriuret Pep 476 H (<=125) pg/mL Total Protein 5.9 L (6.0-8.0) g/dL Albumin 1.7 L* (3.2-4.6) g/dL Globulin 4.2 g/dL Albumin/Globulin Ratio 0.4 SARS-CoV-2 RNA (GAURANG) (NEGATIVE) 05/20/21 Range/Units 12:00 WBC (3.2-10.1) x10-3/uL RBC (3.90-5.90) x10(6)uL Hgb (12.9-17.7) g/dL Hct (38.3-50.1) % MCV (80.8-98.7) fL MCH (27.0-33.3) pg MCHC (28.7-35.3) g/dL RDW (12.4-15.0) % Plt Count (117-477) x10(3)uL MPV (6.7-11.0) fL Add Manual Diff Neutrophils % (Manual) (46-82) % Band Neutrophils % (0-6) % Monocytes % (Manual) (4-12) % Eosinophils % (Manual) (0-5) % Hypersegmented Neuts Sodium (135-145) mmol/L Potassium (3.5-5.3) mmol/L Chloride (100-110) mmol/L Carbon Dioxide (21-32) mmol/L BUN (7-18) mg/dL Creatinine (0.70-1.30) mg/dL Est Cr Clr Drug Dosing mL/min Estimated GFR (MDRD) (>60) BUN/Creatinine Ratio (9-20) Glucose (80-116) mg/dL Calcium (8.6-10.2) mg/dL Total Bilirubin (0.1-1.3) mg/dL AST (5-25) IU/L ALT (12-36) U/L Alkaline Phosphatase (56-112) IU/L Troponin I (4.0-60.3) pg/mL NT-Pro-B Natriuret Pep (<=125) pg/mL Total Protein (6.0-8.0) g/dL Albumin (3.2-4.6) g/dL Globulin g/dL Albumin/Globulin Ratio SARS-CoV-2 RNA (GAURANG) Negative (NEGATIVE) Result Diagrams: 05/20/21 08:25 05/20/21 08:25 Jack Results Last 24 hrs: Microbiology 05/20/21 08:30 Anaerobic Blood Culture - Final Blood - Venous - Lab Draw Sepsis Event Note - Evaluation Sepsis Screening Result: Possible Sepsis Risk - Focused Exam Vital Signs: Vital Signs Temp Pulse Resp BP Pulse Ox Pulse Ox 05/20/21 07:32 97.9 F 117 H 32 H 149/80 H 78 L 78 L - Problem List (1) Pneumonia due to COVID-19 virus SNOMED Code(s): 202039906068590446 ICD Code: U07.1 - COVID-19; J12.82 - PNEUMONIA DUE TO CORONAVIRUS DISEASE 2019 Status: Acute Current Visit: No (2) Asthma exacerbation SNOMED Code(s): 616910680 ICD Code: J45.901 - UNSPECIFIED ASTHMA WITH (ACUTE) EXACERBATION Status: Acute Current Visit: No Qualifiers: Asthma severity: unspecified severity Problem List Initiated/Reviewed/Updated: Yes Orders Last 24hrs: Active Orders 24 hr Category Date Time Status Patient Status [ADT] Routine ADT 05/20/21 13:15 Active Oxygen Therapy [RC] PRN Care 05/20/21 13:15 Active RT Aerosol Therapy [RC] ASDIRECTED Care 05/20/21 08:14 Active RT Aerosol Therapy [RC] ASDIRECTED Care 05/20/21 17:37 Ordered Up With Assistance [RC] ASDIRECTED Care 05/20/21 13:15 Active VTE/DVT Education [RC] Per Unit Routine Care 05/20/21 13:15 Active Vital Signs [RC] Q4H Care 05/20/21 13:15 Active Ang Chest [CT] Routine Exams 05/20/21 17:28 Ordered BASIC METABOLIC PANEL,BMP [CHEM] AM Lab 05/21/21 05:11 Ordered CBC WITH AUTO DIFF [HEME] AM Lab 05/21/21 05:11 Ordered CULTURE BLOOD [BC] Urgent Lab 05/20/21 08:25 Received CULTURE BLOOD [BC] Urgent Lab 05/20/21 08:30 Results PRO B-TYPE NATRIUR PEPT,BNPPRO [CHEM] DAILY Lab 05/21/21 05:11 Ordered Albuterol/Ipratropium [DuoNeb 3.0-0.5 MG/3 ML] Med 05/20/21 17:45 Ordered 3 ml NEB Q4H Ondansetron [Zofran ODT] Med 05/20/21 13:15 Active 4 mg PO Q4H PRN methylPREDNISolone Sod Succ [Solu-MEDROL] Med 05/20/21 17:45 Ordered 125 mg IVPUSH Q8H Blood Culture x2 Reflex Set [OM.PC] Urgent Oth 05/20/21 08:13 Ordered Resuscitation Status Routine Resus Stat 05/20/21 13:15 Ordered EKG 12 Lead [EK] Routine Ther 05/20/21 08:13 Ordered Medication Orders Methylprednisolone Sodium Succinate (Methylprednisolone Sodium Succinate 125 Mg/2 Ml Sdv) 125 mg IVPUSH Q8H ELIOT Ondansetron HCl (Ondansetron 4 Mg Tab.Dis) 4 mg PO Q4H PRN PRN Reason: nausea, able to take PO - Mortality Measure Prognosis:: Good <Chip Zhang - Last Filed: 05/20/21 19:22> H&P History of Present Illness - General Admit Problem/Dx: Admission Diagnosis/Problem Admission Diagnosis/Problem Pneumonia - History of Present Illness Initial Comments - Free Text/Narative: CT shows peripheral PE, pt is hemodynamically stable, will be started on Lovenox. GENERALIZED Pain Score (Numeric/FACES): 0 Exam - Vital Signs Vital Signs: Last Vital Signs Temp 36.4 C 05/20/21 14:25 Pulse 87 05/20/21 14:25 Resp 23 H 05/20/21 14:25 BP 127/73 05/20/21 14:25 Pulse Ox 93 L 05/20/21 14:25 - Patient Data Lab Results Last 24 hrs: Laboratory Results - last 24 hr 05/20/21 05/20/21 05/20/21 Range/Units 08:25 08:25 08:25 WBC 11.5 H (3.2-10.1) x10-3/uL RBC 3.71 L (3.90-5.90) x10(6)uL Hgb 11.7 L (12.9-17.7) g/dL Hct 34.5 L (38.3-50.1) % MCV 93.1 (80.8-98.7) fL MCH 31.6 (27.0-33.3) pg MCHC 33.9 (28.7-35.3) g/dL RDW 12.4 (12.4-15.0) % Plt Count 270 (117-477) x10(3)uL MPV 6.0 L (6.7-11.0) fL Add Manual Diff Yes Neutrophils % (Manual) 95 H (46-82) % Band Neutrophils % 2 (0-6) % Monocytes % (Manual) 2 L (4-12) % Eosinophils % (Manual) 1 (0-5) % Hypersegmented Neuts Many Sodium 133 L (135-145) mmol/L Potassium 3.3 L (3.5-5.3) mmol/L Chloride 99 L (100-110) mmol/L Carbon Dioxide 26 (21-32) mmol/L BUN 14 (7-18) mg/dL Creatinine 0.9 (0.70-1.30) mg/dL Est Cr Clr Drug Dosing 85.22 mL/min Estimated GFR (MDRD) > 60 (>60) BUN/Creatinine Ratio 15.6 (9-20) Glucose 108 (80-116) mg/dL Calcium 8.4 L (8.6-10.2) mg/dL Total Bilirubin 0.7 (0.1-1.3) mg/dL AST 23 D (5-25) IU/L ALT 29 D (12-36) U/L Alkaline Phosphatase 99 (56-112) IU/L Troponin I 10.9 (4.0-60.3) pg/mL NT-Pro-B Natriuret Pep 476 H (<=125) pg/mL Total Protein 5.9 L (6.0-8.0) g/dL Albumin 1.7 L* (3.2-4.6) g/dL Globulin 4.2 g/dL Albumin/Globulin Ratio 0.4 SARS-CoV-2 RNA (GAURANG) (NEGATIVE) 05/20/21 Range/Units 12:00 WBC (3.2-10.1) x10-3/uL RBC (3.90-5.90) x10(6)uL Hgb (12.9-17.7) g/dL Hct (38.3-50.1) % MCV (80.8-98.7) fL MCH (27.0-33.3) pg MCHC (28.7-35.3) g/dL RDW (12.4-15.0) % Plt Count (117-477) x10(3)uL MPV (6.7-11.0) fL Add Manual Diff Neutrophils % (Manual) (46-82) % Band Neutrophils % (0-6) % Monocytes % (Manual) (4-12) % Eosinophils % (Manual) (0-5) % Hypersegmented Neuts Sodium (135-145) mmol/L Potassium (3.5-5.3) mmol/L Chloride (100-110) mmol/L Carbon Dioxide (21-32) mmol/L BUN (7-18) mg/dL Creatinine (0.70-1.30) mg/dL Est Cr Clr Drug Dosing mL/min Estimated GFR (MDRD) (>60) BUN/Creatinine Ratio (9-20) Glucose (80-116) mg/dL Calcium (8.6-10.2) mg/dL Total Bilirubin (0.1-1.3) mg/dL AST (5-25) IU/L ALT (12-36) U/L Alkaline Phosphatase (56-112) IU/L Troponin I (4.0-60.3) pg/mL NT-Pro-B Natriuret Pep (<=125) pg/mL Total Protein (6.0-8.0) g/dL Albumin (3.2-4.6) g/dL Globulin g/dL Albumin/Globulin Ratio SARS-CoV-2 RNA (GAURANG) Negative (NEGATIVE) Result Diagrams: 05/20/21 08:25 05/20/21 08:25 Jack Results Last 24 hrs: Microbiology 05/20/21 08:30 Anaerobic Blood Culture - Final Blood - Venous - Lab Draw Sepsis Event Note - Focused Exam Vital Signs: Vital Signs Temp Pulse Resp BP Pulse Ox Pulse Ox Pulse Ox 05/20/21 14:25 36.4 C 87 23 H 127/73 93 L 93 L 05/20/21 07:32 36.6 C 117 H 32 H 149/80 H 78 L 78 L Orders Last 24hrs: Active Orders 24 hr Category Date Time Status Patient Status [ADT] Routine ADT 05/20/21 13:15 Active Oxygen Therapy [RC] PRN Care 05/20/21 13:15 Active RT Aerosol Therapy [RC] ASDIRECTED Care 05/20/21 08:14 Active RT Aerosol Therapy [RC] ASDIRECTED Care 05/20/21 17:37 Active Up With Assistance [RC] ASDIRECTED Care 05/20/21 13:15 Active VTE/DVT Education [RC] Per Unit Routine Care 05/20/21 13:15 Active Vital Signs [RC] Q4H Care 05/20/21 13:15 Active Ang Chest [CT] Routine Exams 05/20/21 17:28 Taken BASIC METABOLIC PANEL,BMP [CHEM] AM Lab 05/21/21 05:11 Ordered CBC WITH AUTO DIFF [HEME] AM Lab 05/21/21 05:11 Ordered CULTURE BLOOD [BC] Urgent Lab 05/20/21 08:25 Received CULTURE BLOOD [BC] Urgent Lab 05/20/21 08:30 Results PRO B-TYPE NATRIUR PEPT,BNPPRO [CHEM] DAILY Lab 05/21/21 05:11 Ordered Albuterol/Ipratropium [DuoNeb 3.0-0.5 MG/3 ML] Med 05/20/21 18:00 Active 3 ml NEB Q4H Enoxaparin [Lovenox] Med 05/20/21 19:30 Ordered 80 mg SUBCUT Q12H Ondansetron [Zofran ODT] Med 05/20/21 13:15 Active 4 mg PO Q4H PRN methylPREDNISolone Sod Succ [Solu-MEDROL] Med 05/20/21 18:00 Active 125 mg IVPUSH Q8H Blood Culture x2 Reflex Set [OM.PC] Urgent Oth 05/20/21 08:13 Ordered Resuscitation Status Routine Resus Stat 05/20/21 13:15 Ordered EKG 12 Lead [EK] Routine Ther 05/20/21 08:13 Ordered Medication Orders Albuterol/Ipratropium (Albuterol/Ipratropium 3.0-0.5 Mg/3 Ml Neb Soln) 3 ml NEB Q4H ELIOT Methylprednisolone Sodium Succinate (Methylprednisolone Sodium Succinate 125 Mg/2 Ml Sdv) 125 mg IVPUSH Q8H ELIOT Ondansetron HCl (Ondansetron 4 Mg Tab.Dis) 4 mg PO Q4H PRN PRN Reason: nausea, able to take PO
[2021-05-20] MEDS ORDERED: Iopamidol 755 Mg/ML 75 ML Bottle IV ONE (17:48)
--- NOTE | 2021-05-20 19:21 | CT ---
INDICATION: Question PE. COVID-19 positive. Shortness of breath. CT-ANGIOGRAPHY OF THE CHEST WITH CONTRAST: Spiral 1.25 mm axial sections were obtained through the chest with 65 mL Isovue-370 at 3.5 cc/second with sagittal and coronal reconstructions and axial reconstructions, 05/20/21 and compared with 05/11/21. TOTAL EXAM DLP: 386.89 mGy/cm. Mediastinal lymphadenopathy is noted and is moderate to severe compatible with the extensive infiltration present - COVID-19 pneumonia in this patient. Severe peripheral infiltration is noted with extensive areas of consolidation. A right upper lobe third order pulmonary embolus is noted on sagittal image 48, coronal image 38 and axial images 187 through 203. There is also a third order pulmonary embolus on the left seen on sagittal image 89 and coronal image 33 and axial image 257 in the anterior left upper lobe. There also appears to be a fourth order posterior basilar left lower lobe pulmonary artery embolus. IMPRESSION: 1. Two pulmonary artery emboli on the left, third or fourth order and one third order pulmonary embolus on the right. 2. Extensive bilateral infiltration with consolidation, most severe peripherally, with no significant pleural effusion. 3. Renal fascial thickening, which may be on the basis ofinfection or possibly previous infection with scarring. No significant defects in the renal cortices are seen, however. Report was called to Dr. Orellana's voicemail at 1855 hours. Report was called to Dr. Zhang for Dr. Orellana at 1900 hours, 05/20/21. [facility]
[2021-05-20] MEDS: Albuterol/Ipratropium 3.0-0.5 MG/3 ML Neb Soln NEB SCH ×2 (19:25→22:46)
[2021-05-20] MEDS: methylPREDNISolone Sodium Succinate 125 MG/2 ML SDV IVPUSH SCH (19:25)
[2021-05-20] MEDS: Enoxaparin 80 MG/0.8 ML Syringe SUBCUT SCH (20:00)
[2021-05-21] MEDS: Albuterol/Ipratropium 3.0-0.5 MG/3 ML Neb Soln NEB SCH ×2 (01:59→05:55)
[2021-05-21] MEDS: methylPREDNISolone Sodium Succinate 125 MG/2 ML SDV IVPUSH SCH ×3 (02:00→17:10)
[2021-05-21] MEDS: Enoxaparin 80 MG/0.8 ML Syringe SUBCUT SCH (08:37)
[2021-05-21] MEDS ORDERED: Acetaminophen 500 MG Tab PO PRN (09:02)
--- NOTE | 2021-05-21 09:06 | PCM.PN ---
- General Info Date of Service: 05/21/21 Subjective Update: Liang still complains of shortness of breath and cough. CT of the chest done yesterday showed pulmonary PE, and EKG this morning revealed atrial fibrillation with a heart rate of 140. Functional Status: Reports: Pain Controlled, Tolerating Diet - Review of Systems Gastrointestinal: Reports: No Symptoms Genitourinary: Reports: No Symptoms Musculoskeletal: Reports: No Symptoms - Patient Data Vitals - Most Recent: Last Vital Signs Temp 97.8 F 05/21/21 08:00 Pulse 119 H 05/21/21 08:00 Resp 22 H 05/21/21 08:00 BP 159/78 H 05/21/21 08:00 Pulse Ox 96 05/21/21 08:00 Weight - Most Recent: 70.987 kg Lab Results Last 24 Hours: Laboratory Results - last 24 hr 05/20/21 05/21/21 05/21/21 Range/Units 12:00 06:25 06:25 WBC 10.9 H (3.2-10.1) x10-3/uL RBC 4.21 (3.90-5.90) x10(6)uL Hgb 13.6 (12.9-17.7) g/dL Hct 39.3 (38.3-50.1) % MCV 93.3 (80.8-98.7) fL MCH 32.3 (27.0-33.3) pg MCHC 34.6 (28.7-35.3) g/dL RDW 12.8 (12.4-15.0) % Plt Count 321 (117-477) x10(3)uL MPV 6.3 L (6.7-11.0) fL Add Manual Diff Yes Neutrophils % (Manual) 97 H (46-82) % Lymphocytes % (Manual) 2 L (13-37) % Monocytes % (Manual) 1 L (4-12) % Hypersegmented Neuts Few Sodium 134 L (135-145) mmol/L Potassium 4.0 (3.5-5.3) mmol/L Chloride 99 L (100-110) mmol/L Carbon Dioxide 24 (21-32) mmol/L BUN 22 H (7-18) mg/dL Creatinine 0.8 (0.70-1.30) mg/dL Est Cr Clr Drug Dosing 93.66 mL/min Estimated GFR (MDRD) > 60 (>60) BUN/Creatinine Ratio 27.5 H (9-20) Glucose 166 H (80-116) mg/dL Calcium 8.7 (8.6-10.2) mg/dL NT-Pro-B Natriuret Pep (<=125) pg/mL SARS-CoV-2 RNA (GAURANG) Negative (NEGATIVE) 05/21/21 Range/Units 06:25 WBC (3.2-10.1) x10-3/uL RBC (3.90-5.90) x10(6)uL Hgb (12.9-17.7) g/dL Hct (38.3-50.1) % MCV (80.8-98.7) fL MCH (27.0-33.3) pg MCHC (28.7-35.3) g/dL RDW (12.4-15.0) % Plt Count (117-477) x10(3)uL MPV (6.7-11.0) fL Add Manual Diff Neutrophils % (Manual) (46-82) % Lymphocytes % (Manual) (13-37) % Monocytes % (Manual) (4-12) % Hypersegmented Neuts Sodium (135-145) mmol/L Potassium (3.5-5.3) mmol/L Chloride (100-110) mmol/L Carbon Dioxide (21-32) mmol/L BUN (7-18) mg/dL Creatinine (0.70-1.30) mg/dL Est Cr Clr Drug Dosing mL/min Estimated GFR (MDRD) (>60) BUN/Creatinine Ratio (9-20) Glucose (80-116) mg/dL Calcium (8.6-10.2) mg/dL NT-Pro-B Natriuret Pep 832 H (<=125) pg/mL SARS-CoV-2 RNA (GAURANG) (NEGATIVE) Jack Results Last 24 Hours: Microbiology 05/20/21 08:30 Aerobic Blood Culture - Preliminary Blood - Venous - Lab Draw NO GROWTH AFTER 1 DAY Anaerobic Blood Culture - Final 05/20/21 08:25 Aerobic Blood Culture - Preliminary Blood - Venous NO GROWTH AFTER 1 DAY Anaerobic Blood Culture - Preliminary NO GROWTH AFTER 1 DAY Med Orders - Current: Current Medications Albuterol/Ipratropium (Albuterol/Ipratropium 3.0-0.5 Mg/3 Ml Neb Soln) 3 ml NEB Q4H [facility] Last Admin: 05/21/21 05:55 Dose: 3 ml Documented by: Apixaban (Apixaban 5 Mg Tab) 5 mg PO BID [facility] Diltiazem HCl (Diltiazem 120 Mg Cap.Cd) 120 mg PO DAILY [facility] Levofloxacin/Dextrose 750 mg/ (Premix) 150 mls @ 100 mls/hr IV Q24H [facility] Methylprednisolone Sodium Succinate (Methylprednisolone Sodium Succinate 125 Mg/2 Ml Sdv) 125 mg IVPUSH Q8H [facility] Last Admin: 05/21/21 02:00 Dose: 125 mg Documented by: Ondansetron HCl (Ondansetron 4 Mg Tab.Dis) 4 mg PO Q4H PRN PRN Reason: nausea, able to take PO Discontinued Medications Albuterol/Ipratropium (Albuterol/Ipratropium 3.0-0.5 Mg/3 Ml Neb Soln) 3 ml NEB ONETIME ONE Stop: 05/20/21 08:14 Last Admin: 05/20/21 08:44 Dose: 3 ml Documented by: Enoxaparin Sodium (Enoxaparin 80 Mg/0.8 Ml Syringe) 80 mg SUBCUT Q12H [facility] Last Admin: 05/21/21 08:37 Dose: 80 mg Documented by: Ceftriaxone Sodium 1 gm/ (Sodium Chloride) 50 mls @ 200 mls/hr IV ONETIME ONE Stop: 05/20/21 10:15 Last Admin: 05/20/21 11:36 Dose: 200 mls/hr Documented by: Azithromycin 500 mg/ Sodium (Chloride) 250 mls @ 250 mls/hr IV ONETIME ONE Stop: 05/20/21 13:40 Last Admin: 05/20/21 13:20 Dose: 250 mls/hr Documented by: Iopamidol (Iopamidol 755 Mg/Ml 75 Ml Bottle) 65 ml IV ONETIME ONE Stop: 05/20/21 17:49 Last Admin: 05/20/21 18:27 Dose: 65 ml Documented by: Methylprednisolone Sodium Succinate (Methylprednisolone Sodium Succinate 125 Mg/2 Ml Sdv) 125 mg IVPUSH ONETIME ONE Stop: 05/20/21 08:14 Last Admin: 05/20/21 08:44 Dose: 125 mg Documented by: - Exam Quality Assessment: Supplemental Oxygen General: Alert, Oriented, Mild Distress Neck: Supple Lungs: Decreased Breath Sounds, Crackles Cardiovascular: Regular Rate, Irregular Rhythm GI/Abdominal Exam: Normal Bowel Sounds #1 Interpretation EKG Date: 05/21/21 Rhythm: A-Fib [place]: Normal P-Wave: Absent QRS: Normal Comparison: NA - No Prior EKG - Patient Data Lab Results Last 24 hrs: Laboratory Results - last 24 hr 05/20/21 05/21/21 05/21/21 Range/Units 12:00 06:25 06:25 WBC 10.9 H (3.2-10.1) x10-3/uL RBC 4.21 (3.90-5.90) x10(6)uL Hgb 13.6 (12.9-17.7) g/dL Hct 39.3 (38.3-50.1) % MCV 93.3 (80.8-98.7) fL MCH 32.3 (27.0-33.3) pg MCHC 34.6 (28.7-35.3) g/dL RDW 12.8 (12.4-15.0) % Plt Count 321 (117-477) x10(3)uL MPV 6.3 L (6.7-11.0) fL Add Manual Diff Yes Neutrophils % (Manual) 97 H (46-82) % Lymphocytes % (Manual) 2 L (13-37) % Monocytes % (Manual) 1 L (4-12) % Hypersegmented Neuts Few Sodium 134 L (135-145) mmol/L Potassium 4.0 (3.5-5.3) mmol/L Chloride 99 L (100-110) mmol/L Carbon Dioxide 24 (21-32) mmol/L BUN 22 H (7-18) mg/dL Creatinine 0.8 (0.70-1.30) mg/dL Est Cr Clr Drug Dosing 93.66 mL/min Estimated GFR (MDRD) > 60 (>60) BUN/Creatinine Ratio 27.5 H (9-20) Glucose 166 H (80-116) mg/dL Calcium 8.7 (8.6-10.2) mg/dL NT-Pro-B Natriuret Pep (<=125) pg/mL SARS-CoV-2 RNA (GAURANG) Negative (NEGATIVE) 05/21/21 Range/Units 06:25 WBC (3.2-10.1) x10-3/uL RBC (3.90-5.90) x10(6)uL Hgb (12.9-17.7) g/dL Hct (38.3-50.1) % MCV (80.8-98.7) fL MCH (27.0-33.3) pg MCHC (28.7-35.3) g/dL RDW (12.4-15.0) % Plt Count (117-477) x10(3)uL MPV (6.7-11.0) fL Add Manual Diff Neutrophils % (Manual) (46-82) % Lymphocytes % (Manual) (13-37) % Monocytes % (Manual) (4-12) % Hypersegmented Neuts Sodium (135-145) mmol/L Potassium (3.5-5.3) mmol/L Chloride (100-110) mmol/L Carbon Dioxide (21-32) mmol/L BUN (7-18) mg/dL Creatinine (0.70-1.30) mg/dL Est Cr Clr Drug Dosing mL/min Estimated GFR (MDRD) (>60) BUN/Creatinine Ratio (9-20) Glucose (80-116) mg/dL Calcium (8.6-10.2) mg/dL NT-Pro-B Natriuret Pep 832 H (<=125) pg/mL SARS-CoV-2 RNA (GAURANG) (NEGATIVE) Result Diagrams: 05/21/21 06:25 05/21/21 06:25 Jack Results Last 24 hrs: Microbiology 05/20/21 08:30 Aerobic Blood Culture - Preliminary Blood - Venous - Lab Draw NO GROWTH AFTER 1 DAY Anaerobic Blood Culture - Final 05/20/21 08:25 Aerobic Blood Culture - Preliminary Blood - Venous NO GROWTH AFTER 1 DAY Anaerobic Blood Culture - Preliminary NO GROWTH AFTER 1 DAY Sepsis Event Note - Evaluation Sepsis Screening Result: Possible Sepsis Risk - Focused Exam Vital Signs: Vital Signs Temp Temp Pulse Pulse Resp BP Pulse Ox 05/21/21 08:00 97.8 F 119 H 22 H 159/78 H 96 05/21/21 06:00 97.7 F 103 H 26 H 171/64 H 94 L 05/21/21 02:00 97.5 F 92 22 H 150/78 H 93 L 05/20/21 22:00 97.5 F 92 24 H 132/74 94 L - Problem List & Annotations (1) Pneumonia due to COVID-19 virus SNOMED Code(s): 651344816362420555 Code(s): U07.1 - COVID-19; J12.82 - PNEUMONIA DUE TO CORONAVIRUS DISEASE 2019 Status: Acute Current Visit: No (2) Asthma exacerbation SNOMED Code(s): 475200430 Code(s): J45.901 - UNSPECIFIED ASTHMA WITH (ACUTE) EXACERBATION Status: Acute Current Visit: No Qualifiers: Asthma severity: unspecified severity (3) Afib SNOMED Code(s): 06095263 Code(s): I48.91 - UNSPECIFIED ATRIAL FIBRILLATION Status: Acute Current Visit: Yes (4) Pulmonary embolism SNOMED Code(s): 61673732 Code(s): I26.99 - OTHER PULMONARY EMBOLISM WITHOUT ACUTE COR PULMONALE Status: Acute Current Visit: Yes Qualifiers: Pulmonary embolism type: unspecified Chronicity: acute Acute cor pulmonale presence: without acute cor pulmonale Qualified Code(s): I26.99 - Other pulmonary embolism without acute cor pulmonale - Problem List Review Problem List Initiated/Reviewed/Updated: Yes - My Orders Last 24 Hours: My Active Orders 05/20/21 17:37 RT Aerosol Therapy [RC] ASDIRECTED 05/20/21 18:00 Albuterol/Ipratropium [DuoNeb 3.0-0.5 MG/3 ML] 3 ml NEB Q4H methylPREDNISolone Sod Succ [Solu-MEDROL] 125 mg IVPUSH Q8H 05/21/21 09:00 Apixaban [Eliquis] 5 mg PO BID Diltiazem [Cardizem CD] 120 mg PO DAILY Levofloxacin/Dextrose 5%-Water [Levaquin in D5W 750 MG/150 ML] 750 mg Premix Bag 1 bag IV Q24H 05/21/21 09:02 Acetaminophen [Tylenol Extra Strength] 500 mg PO Q6H PRN hydrOXYzine pamoate [Vistaril] 50 mg PO Q6H PRN 05/21/21 09:02 Benzonatate [Benzonatate] 200 mg PO TID PRN 11/02/21 09:03 RT Aerosol Therapy [RC] ASDIRECTED 05/21/21 12:00 Zinc Sulfate [Zincate] 220 mg PO DAILY@1200 05/21/21 21:00 Budesonide [Pulmicort] 0.5 mg INH BID@0800,2100 Montelukast [Singulair] 10 mg PO BEDTIME 05/22/21 05:11 BASIC METABOLIC PANEL,BMP [CHEM] AM CBC WITH AUTO DIFF [HEME] AM PRO B-TYPE NATRIUR PEPT,BNPPRO [CHEM] Urgent 05/22/21 08:00 Cholecalciferol (Vitamin D3) [Vitamin D3] 125 mcg PO DAILY@0800 05/22/21 09:00 Multivitamin [Multivitamins] 1 ea PO DAILY - Plan Plan:: I will change his Lovenox Eliquis. Continue with steroids therapy, nebulized albuterol, and also start Levaquin. Cardizem will be given to control his heart rate.
[2021-05-21] MEDS ORDERED: Benzonatate 100 MG Cap PO PRN (09:08)
[2021-05-21] MEDS ORDERED: Sodium Chloride 0.9% 250 ML IV SCH (10:15)
[2021-05-21] MEDS: Multivitamin Tab PO SCH (10:16)
[2021-05-21] MEDS: Cholecalciferol (Vitamin D3) 25 MCG Tab PO SCH (10:16)
[2021-05-21] MEDS: Diltiazem 120 MG Cap.CD PO SCH (10:25)
[2021-05-21] MEDS: Budesonide 0.5 MG/2 ML Neb Susp INH SCH ×2 (10:26→20:12)
[2021-05-21] MEDS: Levofloxacin/Dextrose 5%-Water 750 MG in Premix Bag 1 BAG IV SCH (10:43)
[2021-05-21] MEDS: Zinc Sulfate 220 MG Cap PO SCH (12:55)
[2021-05-21] MEDS: Levalbuterol HCl 1.25 MG/3 ML Neb INH PRN (13:42)
[2021-05-21] MEDS ORDERED: Diltiazem 25 MG/5 ML SDV IVPUSH ONE (14:59)
[2021-05-21] MEDS: Sodium Chloride 0.9% 10 ML Syringe FLUSH PRN (17:21)
[2021-05-21] MEDS: Apixaban 5 MG Tab PO SCH (20:12)
[2021-05-21] MEDS ORDERED: Apixaban 5 MG Tab PO SCH (21:00)
[2021-05-21] MEDS ORDERED: Montelukast 10 MG Tab PO SCH (21:00)
[2021-05-22] MEDS: methylPREDNISolone Sodium Succinate 125 MG/2 ML SDV IVPUSH SCH ×3 (02:36→17:13)
[2021-05-22] MEDS: Sodium Chloride 0.9% 10 ML Syringe FLUSH PRN (02:37)
[2021-05-22] MEDS: Levalbuterol HCl 1.25 MG/3 ML Neb INH PRN ×2 (02:57→13:34)
[2021-05-22] MEDS: Diltiazem 120 MG Cap.CD PO SCH ×2 (06:27→08:19)
[2021-05-22] MEDS: Apixaban 5 MG Tab PO SCH (07:59)
[2021-05-22] MEDS: Multivitamin Tab PO SCH (07:59)
[2021-05-22] MEDS: Cholecalciferol (Vitamin D3) 25 MCG Tab PO SCH (07:59)
[2021-05-22] MEDS: Levofloxacin/Dextrose 5%-Water 750 MG in Premix Bag 1 BAG IV SCH (08:00)
[2021-05-22] MEDS: Budesonide 0.5 MG/2 ML Neb Susp INH SCH (08:01)
[2021-05-22] MEDS ORDERED: Diltiazem 120 MG Cap.CD PO ONE (08:20)
[2021-05-22] MEDS ORDERED: Sodium Chloride 0.9% 1,000 ML IV SCH (08:45)
[2021-05-22] MEDS ORDERED: Diltiazem 25 MG/5 ML SDV IVPUSH ONE (09:02)
[2021-05-22] MEDS: Zinc Sulfate 220 MG Cap PO SCH (11:47)
--- NOTE | 2021-05-22 11:55 | DISCH ---
DISCHARGE DATE: 05/22/2021 ADMIT DIAGNOSIS: COVID-19 pneumonia. TRANSFER DIAGNOSIS: 1. Pneumonia, history of COVID-19. 2. Atrial fibrillation, new. 3. Pulmonary embolism, new. 4. History of chronic obstructive pulmonary disease. CONSULTATIONS: None. BRIEF HISTORY: A 66-year-old who had COVID-19 on 05/06/2021, admitted for a week, discharged home. He also has a history of asthma/COPD. He came back 2 days ago with shortness of breath and respiratory distress. He was noted to have extensive infiltration in the lungs and a CT later revealed some PE. Overnight yesterday, he developed atrial fibrillation, rapid ventricular response. He remains on high-flow oxygen at 6 L, saturating in early 90s, and his heart rate has been difficult to control, going up to 150. He has been getting Cardizem orally and through IV push. Decision was made today to transfer him to [place] later this afternoon for more specialized care. I spent more than 45 minutes in the transfer and discharge of the patient. /[id number] SANJU/OCTAVIA
== END 2021-05-22 18:00 | DRG 193 ==
LOC: FB.ED 07:32 → UNDOADMIN 13:30 → FB.MS 13:30
PROVIDERS: ADMIT Family Medicine; ATTEND Family Medicine
DX: J18.9 Pneumonia, unspecified organism (principal); I26.99 Other pulmonary embolism without acute cor pulmonale; J45.901 Unspecified asthma with (acute) exacerbation; J44.0 Chronic obstructive pulmonary disease with (acute) lower respiratory infection; I48.91 Unspecified atrial fibrillation; Z79.01 Long term (current) use of anticoagulants; Z86.16 Personal history of COVID-19; Z20.822 Contact with and (suspected) exposure to COVID-19
CPT/HCPCS: 36410; 36415; 71045; 71275; 80048; 80053; 83880; 84484; 85025; 87040; 93005; 94640; 94760; 96374; 96375; 99285-25; A9270-GY; J0456; J0696; J1650; J1956; J2930; J3490; J7030; J7050; J7612-GY; J7620-GY; Q9967; U0002